=== PATIENT | female | born 1995 | race Caucasian/White ===

== ENCOUNTER → 2017-12-03 17:27 | Outpatient (CLI) | payer BC, SELFPAY ==
[2017-12-03 20:01] LABS: Chlamydia Trachomatis by PCR Negative (Negative); Neisserai gonorrhoeae by PCR Negative (Negative); Probe Check PASS; Sample Adequacy Control PASS; Specimen Processing Control PASS
[2017-12-08 14:54] LABS: HPV Reflexed? NOT INDICATED
== END ==
PROVIDERS: Visit Provider Obstetrics & Gynecology
DX: O09.90 Supervision of high risk pregnancy, unspecified, unspecified trimester (principal)
CPT/HCPCS: 87086; 87088; 87491; 87591; 88175; G0145

== ENCOUNTER → 2018-01-07 10:08 | Outpatient (CLI) | payer BC, SELFPAY ==
[2018-01-07 12:52] LABS: Absolute Lymphocyte Count 1.23 X10^3/ul (0.83-4.51); Absolute Neutrophil Count 2.6 X10^3/uL (2.0-7.7); Basophil# 0.02 X10^3/uL; Basophil% 0.5 % (0-1); Differential Indicated SCAN CRITERIA MET; Eosinophils% 2.4 % (0-5); Hematocrit 36.7 % (37-47); Hemoglobin 11.7 g/dl (12.0-15.0); Lymphocyte # 1.23 X10^3/ul (4.0); Lymphocyte % 29.1 % (19-41); Mean Corp Hgb Conc 31.9 g/gl (32-36); Mean Corpuscular Hgb 23.6 pg (27.0-32.0); Mean Corpuscular Volume 74.1 fL (81-99); Mean Platelet Vol. 10.8 fl (6.2-12.0); Monocyte# 0.28 X10^3/uL; Monocyte% 6.6 % (0-10); Neutrophil # 2.59 X10^3/uL (2.7-7.7); Neutrophil % 61.2 % (47-70); POSITIVE COUNT NO; POSITIVE DIFFERENTIAL NO; POSITIVE MORPHOLOGY YES; Platelet Count 275 K/mm3 (150-450); RBC Distribution Width CV 24.1 % (11.6-14.6); RBC Distribution Width SD 62.3 fl (35.1-43.9); Red Blood Count 4.95 M/mm3 (4.2-5.4); White Blood Count 4.2 K/mm3 (4.4-11.0)
[2018-01-07 13:23] LABS: Anisocytosis 1+; Hypochromasia 1+
[2018-01-08 05:20] LABS: Rapid Plasmin Reagin (RPR) NONREACTIVE (NONREACTIVE)
[2018-01-08 08:41] LABS: HEPATITIS B SURFACE AG Negative (Negative)
[2018-01-08 09:18] LABS: HIV - WCH Non-Reactive (Nonreactive); Rubella IgG 54.4 IU/mL
== END ==
PROVIDERS: Visit Provider Obstetrics & Gynecology
DX: O99.89 Other specified diseases and conditions complicating pregnancy, childbirth and the puerperium (principal); R82.71 Bacteriuria; Z3A.00 Weeks of gestation of pregnancy not specified
CPT/HCPCS: 36415; 85025; 86592; 86703; 86762; 86850; 86900; 87077; 87086; 87088; 87340

== ENCOUNTER → 2018-02-24 12:05 | Outpatient (CLI) | payer BC, MEDICAID, SELFPAY | PROVIDERS: Visit Provider Obstetrics & Gynecology | DX: O09.90 Supervision of high risk pregnancy, unspecified, unspecified trimester (principal); Z3A.00 Weeks of gestation of pregnancy not specified | CPT/HCPCS: 76805 ==

== ENCOUNTER → 2018-03-26 07:58 | Outpatient (CLI) | payer BC, MEDICAID, SELFPAY ==
--- NOTE | 2018-03-26 08:01 | US_ITS ---
STUDY: SECOND AND THIRD TRIMESTER OBSTETRICAL ULTRASOUND - LIMITED REASON FOR EXAM: Female, 22 years old. Follow-up anatomy. LMP: 10/08/2017 PRIOR ULTRASOUND: 02/24/2018. TECHNIQUE: Transabdominal ultrasound evaluation was performed. FINDINGS: There is a single intrauterine fetus. The fetus is in a breech presentation. There is demonstrated cardiac activity with a heart rate of 125 bpm. There is a normal amniotic fluid volume. The largest amniotic fluid pocket measures 3.8 cm.The placenta is anterior in location and is not low lying. There are Grade 0 placental changes. The cervix measures 4.1 cm cm in length. BIOMETRY: BPD: 6.1: 24 weeks, 6 days HC: 23.6: 25 weeks, 5 days AC: 20.6: 25 weeks, 2 days FL: 4.4: 24 weeks, 2 days Age by LMP: 24 weeks, 1 days. BISMARK by LMP: 07/15/2018. age by prior US: 25 weeks, 0 days. BISMARK by prior US: 07/09/2018. age by current US: 25 weeks, 1 days. BISMARK by current US: 07/08/2018. Estimated weight: 745 grams, +/- 109 grams, 75 percentile. Follow-up evaluation of the face and spine appear within normal limits. US/OB Limited (No Biometrics) IMPRESSION: Single live fetus in a breech presentation. Follow-up evaluation of the face and spine are within normal limits. Placenta is grade 0 and is not low-lying. Cervix is closed. age by current US: 25 weeks, 1 days. BISMARK by current US: 07/08/2018. Estimated weight: 745 grams, +/- 109 grams, 75 percentile. Electronically Signed: Kyrie Lyon MD at 17:12 EDT , Service support ,
== END ==
PROVIDERS: Visit Provider Obstetrics & Gynecology
DX: Z36.2 Encounter for other antenatal screening follow-up (principal)
CPT/HCPCS: 76815

== ENCOUNTER → 2018-04-28 10:54 | Outpatient (CLI) | payer BC, MEDICAID, SELFPAY ==
[2018-04-28 12:20] LABS: Absolute Lymphocyte Count 1.15 X10^3/ul (0.83-4.51); Absolute Neutrophil Count 4.6 X10^3/uL (2.0-7.7); Basophil# 0.01 X10^3/uL; Basophil% 0.2 % (0-1); Eosinophil# 0.15 X10^3/uL; Eosinophils% 2.4 % (0-5); Hematocrit 37.8 % (37-47); Hemoglobin 12.8 g/dl (12.0-15.0); Lymphocyte # 1.15 X10^3/ul (4.0); Mean Corp Hgb Conc 33.9 g/gl (32-36); Mean Corpuscular Hgb 30.8 pg (27.0-32.0); Mean Corpuscular Volume 90.9 fL (81-99); Mean Platelet Vol. 11.4 fl (6.2-12.0); Monocyte# 0.44 X10^3/uL; Monocyte% 6.9 % (0-10); Neutrophil # 4.62 X10^3/uL (2.7-7.7); Neutrophil % 72.3 % (47-70); Platelet Count 166 K/mm3 (150-450); RBC Distribution Width CV 14.9 % (11.6-14.6); RBC Distribution Width SD 48.9 fl (35.1-43.9); Red Blood Count 4.16 M/mm3 (4.2-5.4); White Blood Count 6.4 K/mm3 (4.4-11.0)
[2018-04-28 12:23] LABS: POSITIVE COUNT NO; POSITIVE DIFFERENTIAL NO; POSITIVE MORPHOLOGY NO
[2018-04-28 12:24] LABS: Glucose Challenge Gest 1H 50g 102 mg/dL (70-140)
== END ==
PROVIDERS: Referring Provider Obstetrics & Gynecology; Visit Provider Obstetrics & Gynecology
DX: O09.90 Supervision of high risk pregnancy, unspecified, unspecified trimester (principal)
CPT/HCPCS: 36415; 82950; 85025

== ENCOUNTER → 2018-05-10 11:47 | Outpatient (CLI) | payer BC, MEDICAID, SELFPAY ==
[2018-05-10 12:11] LABS: Absolute Lymphocyte Count 1.08 X10^3/ul (0.83-4.51); Basophil# 0.01 X10^3/uL; Basophil% 0.1 % (0-1); Eosinophil# 0.14 X10^3/uL; Eosinophils% 1.4 % (0-5); Hematocrit 38.5 % (37-47); Hemoglobin 12.8 g/dl (12.0-15.0); Lymphocyte # 1.08 X10^3/ul (4.0); Lymphocyte % 10.7 % (19-41); Mean Corp Hgb Conc 33.2 g/gl (32-36); Mean Corpuscular Hgb 30.5 pg (27.0-32.0); Mean Corpuscular Volume 91.7 fL (81-99); Mean Platelet Vol. 10.8 fl (6.2-12.0); Monocyte% 7.9 % (0-10); Neutrophil # 8.04 X10^3/uL (2.7-7.7); Neutrophil % 79.8 % (47-70); Platelet Count 169 K/mm3 (150-450); RBC Distribution Width CV 14.4 % (11.6-14.6); RBC Distribution Width SD 47.9 fl (35.1-43.9); White Blood Count 10.1 K/mm3 (4.4-11.0)
--- NOTE | 2018-05-10 12:12 | CT_ITS ---
STUDY: CT ABDOMEN AND PELVIS WITH CONTRAST REASON FOR EXAM: Female, 22 years old. Right lower quadrant pain. The patient is 31 weeks . RADIATION DOSAGE (If Supplied By Facility): CTDIvol = ( 10.52 ) mGy, DLP = ( 477.95 ) mGycm TECHNIQUE: Transaxial images were obtained from the dome of the diaphragm to the symphysis pubis with oral contrast. 100 ml of Isovue 300 contrast was administered. Sagittal and coronal images were reconstructed. Individualized dose optimization techniques were used for this CT. COMPARISON: None. FINDINGS: The visualized lung bases are unremarkable. The visualized portions of the heart are within normal limits. Normal liver. Normal gallbladder and extrahepatic biliary system. Normal spleen. Normal pancreas. Normal bilateral adrenal glands. Mild degree of right hydronephrosis and hydroureter ureter. This is a normal finding and a . Normal left kidney. Normal visualized stomach. Normal small intestine. Normal colon. There is a tubular, thick-walled appendix (>7mm), consistent with acute appendicitis. Normal abdominal aorta. Normal inferior vena cava. Normal retroperitoneum. Normal urinary bladder. Normal abdominal wall. Normal osseous structures. CT/Abdomen/Pelvis WITH Contrast IMPRESSION: Findings in keeping with noncomplicated acute appendicitis. Right hydronephrosis and right hydroureter. Electronically Signed: Riccardo Sultana MD at 15:19 EDT Tel [phone], Service support ,
[2018-05-10 12:13] LABS: POSITIVE COUNT NO; POSITIVE DIFFERENTIAL NO; POSITIVE MORPHOLOGY NO
== END ==
PROVIDERS: Referring Provider Obstetrics & Gynecology; Visit Provider Obstetrics & Gynecology
DX: O26.899 Other specified pregnancy related conditions, unspecified trimester (principal); R10.9 Unspecified abdominal pain; Z3A.00 Weeks of gestation of pregnancy not specified
CPT/HCPCS: 36415; 74177; 85025

== ENCOUNTER 2018-05-10 16:39 | Observation (INO) | payer BC, MEDICAID, SELFPAY ==
--- NOTE | 2018-05-10 | APP_PTH ---
PATIENT: DANI VELÁZQUEZ LOC: WP U#:[id number] AGE/SX: 22/F ROOM: WP013 RE05/10/[address]: Dr. Heike Montemayor MD : 1995 BED: 1 DIS: 05/11/2018 SPEC #: [id number] RECD: 05/11/18 11:04 STATUS: VENU REZakiay #: [id number] BENSON: 05/10/18 00:[address]: Heike Montemayor DEPT: SURGICAL PATHOLOGY RECD BY: Nirav Berrios ENTERED: 05/11/18 11:04 SP TYPE: APPENDIX OTHR DR: Dr. Mily Cano MD No Primary Care Phys Tissues: Appendix, NOS Procedures: Surgery Specimen Level III HEADER OPERATION: Appendectomy PRE-OP DIAGNOSIS: Acute appendicitis TISSUE SUBMITTED: Appendix MICROSCOPIC DIAGNOSIS Appendix: Mild acute appendicitis and periappendicitis. JOE:luis 05/12/18 MICROSCOPIC DESCRIPTION Slides are reviewed. GROSS DESCRIPTION Received is one container labeled with the patient's name and designated appendix. The specimen consists of a C-shaped appendix measuring 9 cm in length and up to 0.6 cm in diameter. The serosa is congested. No obvious perforation is identified. The lumen is pinpoint. No fecalith is identified. The entire specimen is submitted in three cassettes as follows: 1 - tip and proximal portion, 2 & 3 - rest of the specimen. / JOE:luis 05/11/18 TC:2 [facility]: [id number]
--- NOTE | 2018-05-10 15:19 | PCM.HP.STD ---
History of Present Illness Date of Admission: 05/10/18 The patient is a 22 year old F 30 weeks gestation [address] to Dr. Cano's office due to abdominal cramps started at midnight last night and when she woke up this morning it was more along the right side. Patient states she did have some vomiting this morning and has been having diarrhea since last night. Dr. Cano did do a CBC, white blood cell count was 10 with a left shift. Patient did have a CT abdomen pelvis which did show acute appendicitis. Patient rates her pain a 7/10. 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 Lives: Spouse/ Significant Other Smoking Status: Never smoker Tobacco Use: Non-smoker Alcohol: None Drugs: None - *Family History Maternal History Items: No pertinent history Review of Systems Constitutional: Reports: Anorexia Cardiovascular: Denies: Chest Pain Respiratory: Denies: Shortness of Breath Gastrointestinal: Reports: Abdominal Pain, Vomiting Psychiatric: Denies: Anxiety Hematologic/ Lymphatic: Denies: Easy Bruising, Easy Bleeding VTE Information - Inpt Only VTE Present on Admission: Yes VTE Mechan Device Prophylaxis: SCD's VTE Pharm Prophylaxis ordered?: No Reason prophylaxis not ordered:: Treatment Not Indicated - Physical Exam General: Alert, Oriented x3, Cooperative, No apparent distress HEENT: Atraumatic Lungs: Normal air movement Cardiovascular: Regular rate Abdomen: Soft, Gravid - 30 weeks, Tender - Right lateral abdomen from anterior iliac crests to the inferior rib area, positive Rovsing sign, no guarding or rebound Extremities: No clubbing, No cyanosis, No edema Skin: No rashes Neurological: Cranial nerves II-XII grossly intact Psych/Mental Status: Normal Affect Assessment/Plan All Active Problems (Last Reviewed 04/28/18 @ 10:29 by Jennifer De Santiago) (Acute) Asymptomatic bacteriuria during in first trimester (Acute) History of delivery, currently (Acute) Supervision of high-risk (Acute) 22-year-old female 30 weeks gestation, acute appendicitis 1. Discussed with the patient as well as her and reviewed the CT which was consistent with acute appendicitis. Discussed I would not be able to do this laparoscopically due to the fetus position. Recommend doing an open appendectomy. Discussed the risk including but not limited to bleeding, infection, injury to another organ colon/small bowel/uterus, risk of demise, labor and anesthesia. Patient did have heart tones at 320 which were 146 and will plan to do NST for 2 hours after the surgery and delivery. Patient and her no further questions at this time. Heike Montemayor M.D. Pager: [phone] [facility] [address] [place] [address] [address] [place] [address] Office: [phone]
--- NOTE | 2018-05-10 15:24 | HP.PCM_ITS ---
History of Present Illness Date of Admission: 05/10/18 The patient is a 22 year old F 30 weeks gestation [address] to [address]. Cano's office due to abdominal cramps started at midnight last night and when she woke up this morning it was more along the right side. Patient states she did have some vomiting this morning and has been having diarrhea since last night. Dr. Cano did do a CBC, white blood cell count was 10 with a left shift. Patient did have a CT abdomen pelvis which did show acute appendicitis. Patient rates her pain a 7/10. 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 Lives: Spouse/ Significant Other Smoking Status: Never smoker Tobacco Use: Non-smoker Alcohol: None Drugs: None - *Family History Maternal History Items: No pertinent history Review of Systems Constitutional: Reports: Anorexia Cardiovascular: Denies: Chest Pain Respiratory: Denies: Shortness of Breath Gastrointestinal: Reports: Abdominal Pain, Vomiting Psychiatric: Denies: Anxiety Hematologic/ Lymphatic: Denies: Easy Bruising, Easy Bleeding VTE Information - Inpt Only VTE Present on Admission: Yes VTE Mechan Device Prophylaxis: SCD's VTE Pharm Prophylaxis ordered?: No Reason prophylaxis not ordered:: Treatment Not Indicated - Physical Exam General: Alert, Oriented x3, Cooperative, No apparent distress HEENT: Atraumatic Lungs: Normal air movement Cardiovascular: Regular rate Abdomen: Soft, Gravid - 30 weeks, Tender - Right lateral abdomen from anterior iliac crests to the inferior rib area, positive Rovsing sign, no guarding or rebound Extremities: No clubbing, No cyanosis, No edema Skin: No rashes Neurological: Cranial nerves II-XII grossly intact Psych/Mental Status: Normal Affect Assessment/Plan All Active Problems (Last Reviewed 04/28/18 @ 10:29 by Jennifer De Santiago) (Acute) Asymptomatic bacteriuria during in first trimester (Acute) History of delivery, currently (Acute) Supervision of high-risk (Acute) 22-year-old female 30 weeks gestation, acute appendicitis 1. Discussed with the patient as well as her and reviewed the CT which was consistent with acute appendicitis. Discussed I would not be able to do this laparoscopically due to the fetus position. Recommend doing an open appendectomy. Discussed the risk including but not limited to bleeding, infection, injury to another organ colon/small bowel/uterus, risk of demise, labor and anesthesia. Patient did have heart tones at 320 which were 146 and will plan to do NST for 2 hours after the surgery and delivery. Patient and her no further questions at this time. Heike Montemayor M.D. Pager: [phone] [facility] [address] [place] [address] [address] [place] [address] Office: [phone]
[2018-05-10 15:28] VITALS: BP 127/78; PULSE 96; RESP 18; TEMP 37.4; O2SAT 99; BMI 27.2
[2018-05-10 15:35] VITALS: BMI 27.2
[2018-05-10 15:39] LABS: Anion Gap 10 (5-15); BUN 4 mg/dL (7-18); BUN/Creat Ratio 6.8 RATIO (10-20); Calcium,Total 8.3 mg/dL (8.5-10.1); Chloride 103 mmol/L (98-107); Creatinine, Serum 0.58 mg/dL (0.55-1.02); EST Glomerular Filtration Rate 136 mL/min (>60); Est Glom Filt Rate - Afr Amer 164 mL/min (>60); Estimated Creatinine Clearance 147.95 ml/min; Glucose 76 mg/dL (74-106); Potassium 3.3 mmol/L (3.5-5.1); Sodium Level 139 mmol/L (136-145)
[2018-05-10] MEDS: Piperacil/Tazobactam 3.375 GM/50 ML ML IV (16:12)
[2018-05-10] MEDS: Bupivacaine Mpf 0.5% 30 ML VIAL (17:20)
--- NOTE | 2018-05-10 17:32 | PCM.OPRPT ---
Report of Operation Date of Procedure: 05/10/18 Pre-Operative Diagnosis: Acute appendicitis Post-Operative Diagnosis: Same Surgery/Procedure Performed:: Open appendectomy military science teacher: Markell Caba Type of Anesthesia:: General/Supplemental Anesthesiologist: Eugene Mike Special Medications: Zosyn 3.375 g IV x1 Specimen's removed: Appendix Estimated Blood Loss (mL): <10 cc Fluids Replaced: 1400cc Description of Procedure: Patient was brought to the operating room placed supine on the operating room table. A timeout was completed verifying correct patient, procedure, site, positioning, special, prior to beginning procedure. Patient was placed supine slightly rolled to the left with a bump under her right side. General anesthesia was induced. McBurney's point was marked midway between the umbilicus and the anterior iliac spine. Incision was made with a 15 blade scalpel. Electrocautery was used to dissect down to the external oblique fascia. It was incised with the direction of its fibers. The internal and transversalis fascia also incised in the direction of its fibers. The peritoneum was grasped with hemostats and opened with Metzenbaum scissors. [place]'s were used to expose the cecum. It was gently grasped with [place] and the tinea was followed to expose the appendix. The appendix was flipped into the incision. The appendix was inflamed, no perforation identified. The mesoappendix was divided with multiple 3-0 silk sutures. The appendix was divided using a 45 mm endoscopic stapler with blue load. Hemostasis was achieved. Fluid was suctioned. Each of the fascial layers and the peritoneum were closed with 2-0 Vicryls running suture. The skin and subcutaneous tissues were closed with 3-0 Vicryl interrupted subdermal sutures and the skin with 4-0 Monocryl interrupted sutures. Steri-Strips and OpSite were placed over the dressing. Patient was extubated. Patient tolerated procedure. Pt was taken to the postanesthesia care unit in stable condition with plans for continuous monitoring for 2 hours postoperatively. - Complications none
--- NOTE | 2018-05-10 17:38 | OP.PCM_ITS ---
Report of Operation Date of Procedure: 05/10/18 Pre-Operative Diagnosis: Acute appendicitis Post-Operative Diagnosis: Same Surgery/Procedure Performed:: Open appendectomy sports information director: Markell Caba Type of Anesthesia:: General/Supplemental Anesthesiologist: Eugene Mike Special Medications: Zosyn 3.375 g IV x1 Specimen's removed: Appendix Estimated Blood Loss (mL): <10 cc Fluids Replaced: 1400cc Description of Procedure: Patient was brought to the operating room placed supine on the operating room table. A timeout was completed verifying correct patient, procedure, site, positioning, special, prior to beginning procedure. Patient was placed supine slightly rolled to the left with a bump under her right side. General anesthesia was induced. McBurney's point was marked midway between the umbilicus and the anterior iliac spine. Incision was made with a 15 blade scalpel. Electrocautery was used to dissect down to the external oblique fascia. It was incised with the direction of its fibers. The internal and transversalis fascia also incised in the dire ction of its fibers. The peritoneum was grasped with hemostats and opened with Metzenbaum scissors. [place]'s were used to expose the cecum. It was gently grasped with Babcocks and the tinea was followed to expose the appendix. The appendix was flipped into the incision. The appendix was inflamed, no perforation identified. The mesoappendix was divided with multiple 3-0 silk sutures. The appendix was divided using a 45 mm endoscopic stapler with blue load. Hemostasis was achieved. Fluid was suctioned. Each of the fascial layers and the peritoneum were closed with 2-0 Vicryls running suture. The skin and subcutaneous tissues were closed with 3-0 Vicryl interrupted subdermal sutures and the skin with 4-0 Monocryl interrupted sutures. Steri-Strips and OpSite were placed over the dressing. Patient was extubated. Patient tolerated procedure. Pt was taken to the postanesthesia care unit in stable condition with plans for continuous monitoring for 2 hours postoperatively. - Complications none
[2018-05-10 17:39] VITALS: BP 117/80; BP 127/78; PULSE 98; RESP 16; TEMP 37.2; O2SAT 100
--- NOTE | 2018-05-10 17:42 | SUR.PHASEI ---
OB NURSES AT BEDSIDE, MONITORING BABY
[2018-05-10 18:02] VITALS: BP 114/82; BP 127/78; PULSE 98; RESP 16; O2SAT 100
[2018-05-10 18:15] VITALS: BP 115/79; BP 127/78; PULSE 102; RESP 16; O2SAT 100
[2018-05-10 18:30] VITALS: BP 118/72; BP 127/78; PULSE 100; RESP 16; TEMP 37.2; O2SAT 99
[2018-05-10] MEDS: Morphine 2 MG/ML Syringe IV ×2 (19:27→21:34)
[2018-05-10] MEDS: Lactated Ringers 1,000 ML 125 ML IV (19:56)
[2018-05-10] MEDS: HYDROcodone Bitartrate/Apap 5/325 Tablet PO (23:31)
[2018-05-10 23:33] VITALS: BMI 27.3
[2018-05-11] MEDS: Lactated Ringers 1,000 ML 125 ML IV (03:25)
[2018-05-11] MEDS: Acetaminophen 500 MG Tablet 1000 MG PO (03:43)
--- NOTE | 2018-05-11 07:24 | US_ITS ---
STUDY: OBSTETRICAL ULTRASOUND - BIOPHYSICAL PROFILE REASON FOR EXAM: Female, 22 years old. well being. The patient had an appendectomy 24 hours prior. LMP: October 08, 2017. PRIOR ULTRASOUND: Comparison is made with prior examination dated March 26, 2018. TECHNIQUE: Transabdominal TECHNICAL QUALITY: Adequate. FINDINGS: There is a single intrauterine fetus. The fetus is in a cephalic presentation. There is demonstrated cardiac activity with a heart rate of 132 bpm. There is a normal amniotic fluid volume. The largest amniotic fluid pocket measures 6.5 cm. The amniotic fluid index (KELVIN) is 15.5 cm. The placenta is anterior in location and is not low lying. There are Grade 0 placental changes. The cervix measures 4.5 cm. Age by LMP: 30 weeks, 5 days. BISMARK by LMP: July 15, 2018. age by prior US: 31 weeks, 5 days. BISMARK by prior US: July 08, 2018. BIOPHYSICAL PROFILE: Breathing Movements (FBM): 0 Gross Body Movements (GBM): 2 Tone (FT): 2 Amniotic Fluid Volume (AFV): 2 TOTAL SCORE: 6 / 8 US/Biophysical Profile IMPRESSION: biophysical profile of 68. Electronically Signed: Riccardo Sultana MD at 10:50 EDT Tel [phone], Service support ,
[2018-05-11] MEDS: HYDROcodone Bitartrate/Apap 5/325 Tablet PO (08:09)
--- NOTE | 2018-05-11 08:18 | PCM.PN.SRG ---
Subjective: Patient is doing well able to tolerate a little bit of solid food denies any nausea or vomiting pain is controlled, has walked to the bathroom, baby is doing well as well - Physical Exam General: Alert, Oriented x3, Cooperative, No apparent distress HEENT: Atraumatic Lungs: Normal air movement Cardiovascular: Regular rate Abdomen: Soft, Gravid, Tender - Near incision, dressed, clean dry and intact Vital Signs Temp Pulse Resp BP Pulse Ox 99.0 F 100 16 118/72 99 05/10/18 18:30 05/10/18 18:30 05/10/18 18:30 05/10/18 18:30 05/10/18 18:30 Oxygen Flow Rate (L/min) 2.5 Oxygen Delivery Method Nasal Cannula Weight: 174 lb 3.2 oz Body Mass Index (BMI) 27.3 Intake and Output for Last 24 Hours 05/09/18 05/10/18 05/11/18 23:59 23:59 23:59 Intake Total 1500 / 1500 4374 / 4374 Output Total 2058 / 2058 Balance 1500 / 1500 2315 / 2315 Laboratory Tests Past 24 Hrs 05/10/18 15:20 Sodium 139 Potassium 3.3 L Chloride 103 Carbon Dioxide 26.0 Anion Gap 10 BUN 4 L Creatinine 0.58 Estim Creat Clear Calc 147.95 Est GFR (MDRD) Af Amer 164 Est GFR (MDRD) Non-Af 136 BUN/Creatinine Ratio 6.8 L Glucose 76 Calcium 8.3 L Medical Necessity - Tobacco Use Smoking Status: Never smoker Tobacco Use: Non-smoker Assessment/Plan All Active Problems (Last Reviewed 04/28/18 @ 10:29 by Jennifer De Santiago) (Acute) Asymptomatic bacteriuria during in first trimester (Acute) History of delivery, currently (Acute) Supervision of high-risk (Acute) 22-year-old female postop day 1 status post open appendectomy, 30 weeks gestation 1. Patient has ordered a regular diet for this morning. She is able to tolerate pains controlled and patient is ambulating vital signs remained stable patient okay to MT from surgery standpoint. Follow-up in 2 weeks. Heike Montemayor M.D. Pager: [phone] [facility] [address] [place] [address], Outpatient [place], [address] [place] [id number] Office: [phone]
--- NOTE | 2018-05-11 08:24 | DCINST_ITS ---
Discharge Diet: Light diet - advance as tolerated Discharge Activity: May not drive while taking narcotic pain medications. May shower in (days): 1 - Await 24 hours from surgery Lifting Restrictions: No lifting greater than 20 pounds x 4 weeks Call your doctor if your incision/area has: Continuous Slow Oozing, Sudden Increased Bleeding, Increased Pain/ Swelling, Increased Redness, Foul Smelling Discharge, Swelling at the incision site Call your doctor if you observe: Fever of 101 or Higher Remove Dressing in (days):: 1 Additional Instructions: Take stool softener with the [place]. Caution with taking Tylenol with [place] as there is artery 325 mg of Tylenol in each [place] make sure the daily amount of Tylenol is less than 4 g. [place] may also cause constipation if no bowel moveme nt 1-2 days recommend taking several doses of MiraLAX. Medications to take at Discharge vitamin,calcium,dqcwkiti-gibg-kqdxh acid tablet 1 tab PO QDAY 12/03/17 hydroxyprogesterone (PF)( preserving) 250 mg/mL (1 mL) IM oil 250 mg IM QWEEK 02/04/18 Hydrocodone Bitart/Apap 5-325 [[place] 5MG-325MG] 1 - 2 tablet PO Q6H PRN PRN 3 Days #15 tablet 05/11/18 Allergies/Adverse Reactions: Allergies No Known Allergies Allergy (Verified 05/10/18 23:33) The following prescriptions were given: Hydrocodone Bitart/Apap 5-325 [[place] 5MG-325MG] 1 - 2 tablet PO Q6H PRN PRN 3 Days #15 tablet PRN Reason: Pain Primary Care Physician: Care Physician,No Primary [Primary Care Provider] - Test Results: Test results from this visit will be discussed in further detail at your follow- up appointment, if applicable. Please Follow Up With: Heike Montemayor MD - After 5:00/weekends call [phone] with any concerns When: call for appt in 2 weeks Proposed Discharge Date: 05/11/18
== END 2018-05-11 11:20 | disposition home or self-care (01) ==
LOC: SDC 16:39 → WP 19:27
PROVIDERS: Admitting Provider Surgery; Referring Provider Obstetrics & Gynecology; Visit Provider Surgery
PROC: (CPT 44950; principal; 2018-05-10 08:40)
DX: O99.613 Diseases of the digestive system complicating pregnancy, third trimester (principal); K35.80 Unspecified acute appendicitis; Z3A.30 30 weeks gestation of pregnancy
CPT/HCPCS: 00840; 44950; 36415; 59025; 59050; 74177; 76818; 80048; 85025; 87086; 87088; 88304; 99218; J7120; G0378; J2405

== ENCOUNTER → 2018-05-12 10:00 | Outpatient (CLI) | payer BC, MEDICAID, SELFPAY ==
--- NOTE | 2018-05-12 10:03 | US_ITS ---
STUDY: OBSTETRICAL ULTRASOUND - BIOPHYSICAL PROFILE REASON FOR EXAM: Female, 22 years old. well-being. LMP: October 08, 2017 PRIOR ULTRASOUND: Comparison is made with prior examination dated May 11, 2018. TECHNIQUE: Transabdominal TECHNICAL QUALITY: Adequate. FINDINGS: There is a single intrauterine fetus. The fetus is in a cephalic presentation. There is demonstrated cardiac activity with a heart rate of 140 bpm. There is a normal amniotic fluid volume. The largest amniotic fluid pocket measures 5.6 times by 3.1 cm. The amniotic fluid index (KELVIN) is 17.7 cm. The placenta is anterior in location and is not low lying. There are Grade 0 placental changes. BIOPHYSICAL PROFILE: Breathing Movements (FBM): 2 Gross Body Movements (GBM): 2 Tone (FT): 2 Amniotic Fluid Volume (AFV): 2 TOTAL SCORE: 8 / 8 US/Biophysical Prof W/O Non Stres IMPRESSION: Normal biophysical profile of 02/17. Electronically Signed: Riccardo Sultana MD at 13:02 EDT Tel [phone], Service support ,
== END ==
PROVIDERS: Referring Provider Obstetrics & Gynecology; Visit Provider Obstetrics & Gynecology
DX: O09.90 Supervision of high risk pregnancy, unspecified, unspecified trimester (principal)
CPT/HCPCS: 76819

== ENCOUNTER → 2018-06-16 12:22 | Outpatient (CLI) | payer MEDICAID, SELFPAY ==
[2018-06-16 11:43] VITALS: BMI 28.2
[2018-06-16 12:57] LABS: ROM Internal Control Test YES-OK TO RESULT pt. (Internal QC); ROM Patient Test Negative (Negative)
[2018-06-16 14:05] LABS: Group B Strep DNA By PCR Negative (Negative); Internal Control PASS; Probe Check PASS; Specimen Processing Control PASS
== END ==
PROVIDERS: Referring Provider Nurse Practitioner Women's Health; Visit Provider Nurse Practitioner Women's Health
DX: O09.219 Supervision of pregnancy with history of pre-term labor, unspecified trimester (principal); O09.93 Supervision of high risk pregnancy, unspecified, third trimester; Z3A.00 Weeks of gestation of pregnancy not specified
CPT/HCPCS: 84112; 87081; 87653

== ENCOUNTER → 2018-06-30 12:13 | Outpatient (CLI) | payer BC, MEDICAID, SELFPAY ==
[2018-06-30 11:52] VITALS: BMI 28.2
[2018-06-30 13:03] LABS: Absolute Neutrophil Count 5.4 X10^3/uL (2.0-7.7); Basophil# 0.02 X10^3/uL; Basophil% 0.3 % (0-1); Eosinophil# 0.11 X10^3/uL; Eosinophils% 1.5 % (0-5); Hematocrit 36.4 % (37-47); Hemoglobin 12.1 g/dl (12.0-15.0); Lymphocyte % 16.4 % (19-41); Mean Corp Hgb Conc 33.2 g/gl (32-36); Mean Corpuscular Hgb 30.6 pg (27.0-32.0); Mean Corpuscular Volume 91.9 fL (81-99); Mean Platelet Vol. 11.8 fl (6.2-12.0); Monocyte# 0.54 X10^3/uL; Monocyte% 7.4 % (0-10); Neutrophil # 5.44 X10^3/uL (2.7-7.7); Neutrophil % 74.3 % (47-70); POSITIVE COUNT NO; POSITIVE DIFFERENTIAL NO; POSITIVE MORPHOLOGY NO; Platelet Count 155 K/mm3 (150-450); RBC Distribution Width CV 13.1 % (11.6-14.6); RBC Distribution Width SD 43.1 fl (35.1-43.9); Red Blood Count 3.96 M/mm3 (4.2-5.4); White Blood Count 7.3 K/mm3 (4.4-11.0)
[2018-06-30 13:10] LABS: Protein, Urine (Random) 6.4 mg/dL (<11.9); Protein:Creat Ratio 133 mg/g CRE (0-200)
[2018-06-30 13:24] LABS: ALB/GLOB Ratio 0.7 RATIO (0.9-2.4); AST(SGOT) 14 U/L (15-37); Alanine Aminotransfer ALT/SGPT 16 U/L (13-56); Albumin, Serum 2.7 g/dL (3.2-5.0); Alkaline Phosphatase 137 U/L (45-117); Anion Gap 9 (5-15); BUN 5 mg/dL (7-18); BUN/Creat Ratio 8.9 RATIO (10-20); Calcium,Total 8.4 mg/dL (8.5-10.1); Chloride 107 mmol/L (98-107); Creatinine, Serum 0.56 mg/dL (0.55-1.02); EST Glomerular Filtration Rate 142 mL/min (>60); Est Glom Filt Rate - Afr Amer 172 mL/min (>60); Globulin 3.7 g/dL (2.2-4.2); Glucose 83 mg/dL (74-106); LDH 169 U/L (84-246); Potassium 3.7 mmol/L (3.5-5.1); Protein, Total 6.4 g/dL (6.4-8.2); Sodium Level 139 mmol/L (136-145); Uric Acid 4.1 mg/dL (2.6-6.0)
--- OUTSIDE RECORDS SUMMARY | 2018-10-01 17:29 | XMS RPT_ITS ---
:1995 Author Organization OHIP Support Name Relationship Address Phone UE Unavailable Unavailable Unavailable VELÁZQUEZ, JERED Unavailable [address] + [place] [address] UE Unavailable Unavailable Unavailable VELÁZQUEZ, JERED Unavailable [address] + [place] [address] UE Unavailable Unavailable Unavailable VELÁZQUEZ, JERED Unavailable [address] + [place] [address] UE Unavailable Unavailable Unavailable VELÁZQUEZ, JERED Unavailable [address] + [place] [address] UE Unavailable Unavailable Unavailable VELÁZQUEZ, JERED Unavailable [address] + [place] [address] UE Unavailable Unavailable Unavailable VELÁZQUEZ, JERED Unavailable [address] + [place] [address] UE Unavailable Unavailable Unavailable VELÁZQUEZ, JERED Unavailable [address] + [place] [address] UE Unavailable Unavailable Unavailable VELÁZQUEZ, JERED Unavailable [address] + [place] [address] UE Unavailable Unavailable Unavailable VELÁZQUEZ, JERED Unavailable [address] + [place] [address] UE Unavailable Unavailable Unavailable VELÁZQUEZ, JERED Unavailable [address] + [place] [address] UE Unavailable Unavailable Unavailable VELÁZQUEZ, JERED Unavailable [address] + [place] [address] UE Unavailable Unavailable Unavailable VELÁZQUEZ, JERED Unavailable [address] + [place] [address] UE Unavailable Unavailable Unavailable VELÁZQUEZ, JERED Unavailable [address] + [place] [address] UE Unavailable Unavailable Unavailable VELÁZQUEZ, JERED Unavailable [address] + [place] [address] UE Unavailable Unavailable Unavailable VELÁZQUEZ, JERED Unavailable [address] + [place] [address] UE Unavailable Unavailable Unavailable VELÁZQUEZ, JERED Unavailable [address] + [place] [address] UE Unavailable Unavailable Unavailable VELÁZQUEZ, JERED Unavailable [address] + [place] [address] UE Unavailable Unavailable Unavailable VELÁZQUEZ, JERED Unavailable [address] + [place] [address] UE Unavailable Unavailable Unavailable VELÁZQUEZ, JERED Unavailable [address] + [place] [address] UE Unavailable Unavailable Unavailable VELÁZQUEZ, JERED Unavailable [address] + [place] [address] UE Unavailable Unavailable Unavailable VELÁZQUEZ, JERED Unavailable [address] + [place] [address] UE Unavailable Unavailable Unavailable VELÁZQUEZ, JERED Unavailable [address] + [place] [address] UE Unavailable Unavailable Unavailable VELÁZQUEZ, JERED Unavailable [address] + [place] [address] UE Unavailable Unavailable Unavailable VELÁZQUEZ, JERED Unavailable [address] + [place] [address] UE Unavailable Unavailable Unavailable VELÁZQUEZ, JERED Unavailable [address] + [place] [address] UE Unavailable Unavailable Unavailable VELÁZQUEZ, JERDE Unavailable [address] + [place] [address] UE Unavailable Unavailable Unavailable VELÁZQUEZ, JERED Unavailable [address] + [place] [address] UE Unavailable Unavailable Unavailable VELÁZQUEZ, JERED Unavailable [address] + [place] [address] UE Unavailable Unavailable Unavailable VELÁZQUEZ, JERED Unavailable [address] + [place] [address] UE Unavailable Unavailable Unavailable VELÁZQUEZ, JERED Unavailable [address] + [place] [address] UE Unavailable Unavailable Unavailable VELÁZQUEZ, JERED Unavailable [address] + [place] [address] UE Unavailable Unavailable Unavailable VELÁZQUEZ, JERED Unavailable [address] + [place] [address] UE Unavailable Unavailable Unavailable UE Unavailable Unavailable Unavailable VELÁZQUEZ, JERED Unavailable [address] + [place] [address] UE Unavailable Unavailable Unavailable VELÁZQUEZ, JERED Unavailable [address] + [place] [address] UE Unavailable Unavailable Unavailable VELÁZQUEZ, JERED Unavailable [address] + [place] [address] UE Unavailable Unavailable Unavailable VELÁZQUEZ, JERED Unavailable [address] + [place] [address] UE Unavailable Unavailable Unavailable VELÁZQUEZ, JERED Unavailable [address] + [place] [address] UE Unavailable Unavailable Unavailable UE Unavailable Unavailable Unavailable VELÁZQUEZ, JERED Unavailable [address] + [place] [address] UE Unavailable Unavailable Unavailable VELÁZQUEZ, JERED Unavailable [address] + [place] [address] UE Unavailable Unavailable Unavailable VELÁZQUEZ, JERED Unavailable [address] + [place] [address] UE Unavailable Unavailable Unavailable VELÁZQUEZ, JERED Unavailable [address] + [place] [address] UE Unavailable Unavailable Unavailable VELÁZQUEZ, JERED Unavailable [address] + [place] [address] UE Unavailable Unavailable Unavailable UE Unavailable Unavailable Unavailable VELÁZQUEZ, JERED Unavailable [address] + [place] [address] UE Unavailable Unavailable Unavailable UE Unavailable Unavailable Unavailable VELÁZQUEZ, JERED Unavailable [address] + [place] [address] LIZ, ADINA Unavailable [address] + [place] [address] LIZ, ADINA Unavailable [address] + [place] [address] VELÁZQUEZ, JERED Unavailable Unavailable + LIZ, ADINA Unavailable [address] + [place] [address] LIZ, ADINA Unavailable [address] + [place] [address] VELÁZQUEZ, JERED Unavailable Unavailable + LIZ, ADINA Unavailable [address] + [place] [address] LIZ, ADINA Unavailable [address] + [place] [address] VELÁZQUEZ, JERED Unavailable Unavailable + LIZ, ADINA Unavailable [address] + [place] [address] LIZ, ADINA Unavailable [address] + [place] [address] VELÁZQUEZ, JERED Unavailable Unavailable + Care Team Providers Name Role Phone Mily Cano Attending Unavailable Primay Care Physicia, No Referring Unavailable Antonette Aponte Attending Unavailable Primay Care Physicia, No Referring Unavailable Mily Cano Attending Unavailable Primay Care Physicia, No Primary Care Unavailable Mily Cano Attending Unavailable Mily Cano Referring Unavailable Primay Care Physicia, No Primary Care Unavailable Mily Cano Attending Unavailable Mily Cano Referring Unavailable Primay Care Physicia, No Primary Care Unavailable Mily Cano Consulting Unavailable Mily Cano Attending Unavailable Primay Care Physicia, No Referring Unavailable Mily Cano Attending Unavailable Marcanthony, Mily Referring Unavailable Primay Care Physicia, No Primary Care Unavailable Marcanthony, Mily Admitting Unavailable Marcanthony, Mily Admitting Unavailable Marcanthony, Imly Attending Unavailable Marcanthony, Mily Referring Unavailable Primay Care Physicia, No Primary Care Unavailable Marcanthony, Mily Consulting Unavailable Marcanthony, Mily Admitting Unavailable Fadi, Antonette Attending Unavailable Marcanthony, Mily Referring Unavailable Primay Care Physicia, No Primary Care Unavailable Marcanthony, Mily Consulting Unavailable Marcanthony, Mily Admitting Unavailable Marcanthony, Mily Attending Unavailable Marcanthony, Mily Referring Unavailable Primay Care Physicia, No Primary Care Unavailable Marcanthony, Mily Consulting Unavailable Marcanthony, Mily Attending Unavailable Marcanthony, Mily Attending Unavailable Marcanthony, Mily Referring Unavailable Waggoner, Antonette Attending Unavailable Marcanthony, Mily Attending Unavailable Marcanthony, Mily Attending Unavailable Marcanthony, Mily Attending Unavailable Waggoner, Antonette Attending Unavailable Marcanthony, Mily Attending Unavailable Marcanthony, Mily Attending Unavailable Marcanthony, Mily Referring Unavailable Primay Care Physicia, No Primary Care Unavailable Marcanthony, Mily Attending Unavailable Marcanthony, Mily Attending Unavailable Primay Care Physicia, No Referring Unavailable Marcanthony, Mily Attending Unavailable Primay Care Physicia, No Referring Unavailable Marcanthony, Mily Attending Unavailable Primay Care Physicia, No Referring Unavailable Marcanthony, Mily Attending Unavailable Primay Care Physicia, No Referring Unavailable Marcanthony, Mily Attending Unavailable Primay Care Physicia, No Referring Unavailable Marcanthony, Mily Attending Unavailable Primay Care Physicia, No Primary Care Unavailable Waggoner, Antonette Attending Unavailable Primay Care Physicia, No Referring Unavailable Waggoner, Antonette Attending Unavailable Primay Care Physicia, No Referring Unavailable Marcanthony, Mily Attending Unavailable Primay Care Physicia, No Referring Unavailable Marcanthony, Mily Attending Unavailable Primay Care Physicia, No Referring Unavailable Marcanthony, Mily Attending Unavailable Primay Care Physicia, No Referring Unavailable Marcanthony, Mily Attending Unavailable Primay Care Physicia, No Referring Unavailable Marcanthony, Mily Attending Unavailable Marcanthony, Mily Referring Unavailable Primay Care Physicia, No Primary Care Unavailable Marcanthony, Mily Attending Unavailable Primay Care Physicia, No Referring Unavailable Marcanthony, Mily Attending Unavailable Primay Care Physicia, No Referring Unavailable Marcanthony, Mily Attending Unavailable Marcanthony, Mily Referring Unavailable Primay Care Physicia, No Primary Care Unavailable Robotham, Heike Attending Unavailable Primay Care Physicia, No Primary Care Unavailable Marcanthony, Mily Referring Unavailable Robotham, Heike Admitting Unavailable Robotham, Heike Attending Unavailable Robotham, Heike Referring Unavailable Primay Care Physicia, No Primary Care Unavailable Robotham, Heike Consulting Unavailable Robotham, Heike Admitting Unavailable Robotham, Heike Attending Unavailable Marcanthony, Mily Referring Unavailable Primay Care Physicia, No Primary Care Unavailable Robotham, Heike Consulting Unavailable Marcanthony, Mily Attending Unavailable Primay Care Physicia, No Referring Unavailable Marcanthony, Mily Attending Unavailable Marcanthony, Mily Referring Unavailable Primay Care Physicia, No Primary Care Unavailable Marcanthony, Mily Attending Unavailable Primay Care Physicia, No Referring Unavailable Robotham, Heike Attending Unavailable Marcanthony, Mily Referring Unavailable Fadi, Antonette Attending Unavailable Primay Care Physicia, No Referring Unavailable Marcanthony, Mily Attending Unavailable Primay Care Physicia, No Referring Unavailable Marcanthony, Mily Attending Unavailable Primay Care Physicia, No Referring Unavailable Fadi, Antonette Attending Unavailable Primay Care Physicia, No Referring Unavailable Fadi, Antonette Attending Unavailable Fadi, Antonette Referring Unavailable Primay Care Physicia, No Primary Care Unavailable RAMSES WALL Attending Unavailable PHYSICIAN, NONE Primary Care Unavailable FRED PERRY DO Attending Unavailable FRED PERRY DO Admitting Unavailable BRIDGETTE STEINBERG, DR. ASPEN Cifuentes Primary Care Unavailable BRIDGETTE STEINBERG, DR. ASPEN Cifuentes Primary Care Unavailable REAGAN GARY Attending Unavailable REAGAN GARY Attending Unavailable BRIDGETTE STEINBERG, DR. ASPEN Cifuentes Primary Care Unavailable Darren Guzmán Attending Unavailable PROBLEMS PROBLEMS DATE TYPE CONDITION / CODE ATTENDING STATUS SOURCE 07/08/2018 Unknown O09.219 - Marcanthony, Active [facility] with Hospital history of pre-term Repository labor, unspecified trimester / O09.219(ICD-10) 07/08/2018 Unknown O99.89 - Other Marcanthony, Active [facility] specified diseases [facility] and conditions Hospital complicating Repository , childbirth and the puerperium / O99.89(ICD-10) 07/08/2018 Unknown R82.71 - Bacteriuria Marcnadia, Active [facility] / R82.71(ICD-10) [facility] Repository 07/08/2018 Unknown O09.93 - Supervision Marcnadia, Active [facility] of high risk [facility], [facility] unspecified, third Repository trimester / O09.93(ICD-10) 07/08/2018 Unknown Z3A.39 - 39 weeks Marcanthony, Active [facility] gestation of [facility] / Hospital Z3A.39(ICD-10) Repository 06/30/2018 Unknown O26.893 - Other Fadi, Active [facility] specified [facility] related conditions, Hospital third trimester / Repository O26.893(ICD-10) 06/30/2018 Unknown R51 - Headache / Fadi, Active [facility] R51(ICD-10) [facility] Repository 06/30/2018 Unknown Z3A.37 - 37 weeks Waggoner, Active [facility] gestation of [facility] / Hospital Z3A.37(ICD-10) Repository 06/23/2018 Unknown Z3A.36 - [facility] Z3A.36(ICD-10) Repository 06/16/2018 Unknown Z87.51 - Personal Waggoner, Active [facility] history of pre-term [facility] labor / Hospital Z87.51(ICD-10) Repository 06/16/2018 Unknown Z3A.35 - 35 weeks Waggoner, Active [facility] gestation of [facility] / Hospital Z3A.35(ICD-10) Repository 06/09/2018 Unknown Z3A.34 - 34 weeks Marcanthony, Active [facility] gestation of [facility] / Hospital Z3A.34(ICD-10) Repository 05/11/2018 Unknown G89.18 - Other acute Robotham, Active [facility] postprocedural pain [facility] / G89.18(ICD-10) Hospital Repository 05/24/2018 Unknown O26.899 - Other Marcanthony, Active [facility] specified [facility] related conditions, Hospital unspecified Repository trimester / O26.899(ICD-10) 05/17/2018 Unknown R10.9 - Unspecified Marcanthony, Active [facility] abdominal pain / [facility] R10.9(ICD-10) Hospital Repository 05/17/2018 Unknown M54.5 - Low back Marcanthony, Active [facility] pain / M54.5(ICD-10) [facility] Repository 05/17/2018 Unknown Z3A.30 - 30 weeks Marcanthony, Active [facility] gestation of [facility] / Hospital Z3A.30(ICD-10) Repository 05/21/2018 Unknown O09.90 - Supervision Marcanthony, Active [facility] of high risk [facility], [facility] unspecified, Repository unspecified trimester / O09.90(ICD-10) 05/18/2018 Unknown Z23 - Encounter for Delgadoanthdiego, Active [facility] immunization / [facility] Z23(ICD-10) Hospital Repository 05/18/2018 Unknown Z3A.29 - 29 weeks Marcanthony, Active [facility] gestation of [facility] / Hospital Z3A.29(ICD-10) Repository 05/18/2018 Unknown O09.92 - Supervision Waggoner, Active [place] of high risk [facility], Hospital unspecified, second Repository trimester / O09.92(ICD-10) 05/18/2018 Unknown Z3A.25 - 25 weeks Waggoner, Active [facility] gestation of [facility] / Hospital Z3A.25(ICD-10) Repository 04/30/2018 Unknown Z36.2 - Encounter Marcanthdiego, Active [facility] for other [facility] screening follow-up Hospital / Z36.2(ICD-10) Repository 05/18/2018 Unknown Z3A.17 - 17 weeks Marcanthony, Active [facility] gestation of [facility] / Hospital Z3A.17(ICD-10) Repository 05/18/2018 Unknown O09.91 - Supervision Waggoner, Active [facility] of high risk [facility], Hospital unspecified, first Repository trimester / O09.91(ICD-10) 05/18/2018 Unknown Z3A.12 - 12 weeks Fadi, Active [facility] gestation of [facility] / Hospital Z3A.12(ICD-10) Repository 11/26/2017 Admitting Unknown / Darren Guzmán Active [facility] Medical diagnosis UNK(Unknown) [facility] Repository 09/06/2017 Admitting Urinary tract REAGAN GARY Active [facility] Diagnosis infection, site not [facility] specified / Repository N39.0(ICD-10) PROCEDURES PROCEDURES No Procedure Records FoundRESULTS RESULTS DISCHARGE INSTRUCTION Observed: 07/08/2018 Status: F Source: [facility] 8:58 PM [facility] REPOSITORY [facility] Medical Records Department [address] [place] [address] Instructions for Home/Discharge Instructions 07/08/182056 MR#: [id number] Acct: [id number] Name: DANI HILL Rep #: [id number] : 1995 From: Mily Cano MD PCP: Care Physician, No Primary Status: ADM IN Discharge Diet: No Restrictions Discharge Activity: Return to Normal Activity, May not drive while taking narcotic pain medications., May Shower May resume sexual activity in: 4-6 weeks Call your doctor if your incision/area has: Continuous Slow Oozing, Sudden Increased Bleeding, Increased Pain/ Swelling, Increased Redness, Foul Smelling Discharge Additional Instructions: If you experience any of the following, contact your healthcare provider. * Bleeding that soaks a pad every hour for 2 hours * Fever 100.4 or higher * Unrelieved incision or abdominal pain * Swelling, redness, discharge or bleeding from your incision or episiotomy site * Your incision begins to separate * Problems urinating (including inability to urinate or burning while urinating). * Visual changes * Severe headache * Flu-like symptoms * Pain or redness in one of both of your breasts * Pain, warmth, tenderness or swelling in your legs, especially the calf area * Frequent nausea and vomiting * Symptoms of depression or anxiety If you experience any of the following, call 911 or go to the nearest Emergency Room. * Chest pain * Problems breathing * Seizure activity * Partial or complete paralysis of a body part, slurred speech, weakness or drooping of the face, or a sudden inability to walk or hold your balance Allergies/Adverse Reactions: Allergies No Known Allergies Allergy (Verified 07/08/18 16:44) Medications to take at Discharge vitamin,calcium,reioabot-twov-bkeaj acid tablet 1 tab PO QDAY 12/03/17 Ibuprofen [Motrin] 600 mg PO Q6H PRN PRN #30 tablet 07/08/18 The following prescriptions were given: Ibuprofen [Motrin] 600 mg PO Q6H PRN PRN #30 tablet PRN Reason: Pain Please Follow Up With: Mily Cano MD - [phone] When: Call to make an appointment with your doctor in 6 weeks. If you had elevated Blood pressure or 4th degree laceration you will need to be seen in 2 weeks. Primary Care Physician: Care Physician,No Primary [Primary Care Provider] - Test Results: Test results from this visit will be discussed in further detail at your follow-up appointment, if applicable. 07/08/182057 <Electronically signed by Mily Cano MD> Date Mily Cano MD CC: No Primary Care Physician Signed OPERATIVE REPORT Observed: 07/08/2018 Status: F Source: [place] 8:54 PM [facility] REPOSITORY [facility] Medical Records Department [address] [place] [id number] Operative Report 07/08/182047 MR#: [id number] Acct: [id number] Name: DANI HILL Rep #: [id number] : 1995 From: Mily Cano MD PCP: Care Physician, No Primary Status: ADM IN Location: [place] [id number] - Problem List (1) Active labor at term Status: Acute (2) Asymptomatic bacteriuria during in first trimester Status: Acute Comment: keflex, neg repeat culture (3) History of delivery, currently Status: Acute Comment: s/p progesterone injections (4) Status: Acute Qualifiers: Weeks of gestation: 39 weeks Qualified Code(s): Z3A.39 - 39 weeks gestation of Comment: : 3 Elective abortions: Hx Para: 1 Spontaneous abortions: Hx # Term Pregnancies: Ectopic pregnancies: Hx # Pregnancies: Multiple births: : # of living children: Past Pregnancies 2012 Melva live - 4lbs 14oz Female [facility] (5) Supervision of high-risk Status: Acute Qualifiers: Trimester: third trimester Qualified Code(s): O09.93 - Supervision of high risk , unspecified, third trimester Comment: PRR TITO 07/15/18 gender surprise for daughter AMI Frye boyfriend Jered Vaginal Delivery Maternal Presentation: Active Labor ial 39 weeks Amniotic Membrane Rupture Type: Artificial Amniotic Fluid Description: Clear Final TITO: 07/15/18 Gestational age: 39 Weeks and 0 Days Date of Procedure: 07/08/18 Pre-Operative Diagnosis: ial Post-Operative Diagnosis: same Surgery/ Procedure Performed: Vacuum Assisted Vaginal Delivery Type of Anesthesia: Epidural Description of Procedure: Patient began pushing and developed a belonged deceleration for 4 minutes down into the 70s after having recurrent periodic variables and therefore the decision was made to perform a vacuum-assisted delivery. Patient had been consented for this procedure prior to application of vacuum. Kiwi vacuum was applied and the +3 station and was difficult to maintain suction to pop offs were encountered and then a right small mediolateral episiotomy was cut and the vacuum was moved to the side and the infant's head delivered on the next contraction with 1 Pull and delivered the head in the SEYMOUR presentation. The head was delivered atraumatically and a tight nuchal cord x2 was identified and slowly reduced over the infant's head. Gentle downward traction was applied to the head by placing fingers underneath the chin and the occiput however the infant's shoulders were noted to be abnormally rotated and therefore internal manipulation with a wood screw maneuver was attempted to reduce the shoulder due to malpresentation of the shoulders. With continued gentle downward traction the left anterior shoulder was delivered without complication followed by the posterior shoulder and the rest the infant delivered was placed maternal abdomen and then resuscitated by the research and development manager. Cord was clamped and cut and gentle traction was applied to the cord and the placenta delivered spontaneously immediately following it was noted to be intact with three- vessel cord. The perineum and vagina were inspected and the medial lateral episiotomy was noted to have no extension it was just a second-degree perineal laceration repaired in the usual fashion with 3-0 Vicryl repeat. EBL was 300 cc. Patient and infant tolerated delivery well. Presentation: SEYM[place] Placental Delivery Description: Spontaneous Placenta Disposition: [facility] Cord Vessel Description: 3 Vessels Cord Entanglement: Around neck x 2, tight Estimated Blood Loss: 300 A gender: Male Episiotomy Description: Right Mediolateral Laceration: Perineal Extension/lac, 2nd degree Medications given after delivery: IV Pitocin Complications: None 07/08/182053 <Electronically signed by Mily Cano MD> Date Mily Cano MD CC: No Primary Care Physician; Mily Cano MD Signed HISTORY AND PHYSICAL Observed: 07/08/2018 Status: F Source: [place] EXAM 8:48 PM [facility] REPOSITORY [facility] Medical Records Department [address] [place] [address] History and Physical 07/08/182044 MR#: [id number] Acct: [id number] Name: DANI HILL Rep #: [id number] : 1995 22 From: Mily Cano MD PCP: Care Physician, No Primary Status: ADM IN Location: [place] [address] History Date of Admission: 05/10/18 Final TITO: 07/15/18 Gestational age: 39 Weeks and 0 Days History of this : This is a 22 year-old, at 39 weeks gestational age presents IAL 5 cm dilated, co regular ctx no vb lof has good fm,. she has had an uncomplicated Surgical History: Surgical History (Last Reviewed 07/08/18 @ 12:19 by Monik Alexis) H/O dilation and curettage Z98.890 History of appendectomy Z90.49 Allergies No Known Allergies Allergy (Verified 07/08/18 16:44) Home Medications: Home Medications vitamin,calcium,ycuumewv-izeu-wmzhv acid tablet 1 tab PO QDAY 12/03/17 Smoking Status: Never smoker Alcohol: None Number of Fetus(es): 1 Heart Tracin moderate variability reactive no decels cat I tracing TOCO Analysis: q 2-3 minutes History Past Pregnancies: Past Pregnancies previous PTD Labs: Mom's Labs AND Results WBC 9.6 RBC 4.19 L Course Did the patient receive Yes care? Labs Blood Type: B Current Obstetrical History Gestational Diabetes No Incompetent Cervix No Infertility No IUGR No Macrosomia No Hypertension/Pre-eclampsia No Placenta Previa/Abruption No PTL/PROM No Uterine anomaly No Oligohydramnios No Polyhydramnios No Multiple gestation No Past Medical History Asthma No Diabetes No Hypertension No Heart disease No Mitral valve prolapse No Neurologic/Seizure disorder/ No Migraines Kidney disease No Liver disease No Varicosities No Clotting disorders/Hx of DVT No Thyroid Dysfunction No Other medical diseases No Psychiatric disorders No Major trauma No Abnormal PAP smear No Sleep apnea No Mammogram in the last 2 years No Social History Marital Status: SINGLE Alleged father JERED Hx Smoking No Smoking Status Never smoker Expected Infant Delivery Method: Vacuum Extraction Review of Systems Constitutional: Denies: Fever, Malaise Eyes: Denies: Blurred vision, Vision Change HEENT: Denies: Head Aches, Visual Changes Cardiovascular: Denies: Chest Pain, Palpitations Respiratory: Denies: Cough, Shortness of Breath, Wheezing Gastrointestinal: Reports: Abdominal Pain. Denies: Diarrhea, Nausea, Vomiting Genitourinary: Denies: Dysuria, Hematuria Musculoskeletal: Denies: Joint Pain, Muscle pain Skin: Denies: Lesions, Rash Neurological: Denies: Blurred vision, Focal weakness, Headaches Psychiatric: Denies: Anxiety, Depression Endocrine: Denies: Heat/ Cold Intolerance Hematologic/ Lymphatic: Denies: Easy Bruising, Easy Bleeding Physical Exam General: Alert, Cooperative, No apparent distress HEENT: Atraumatic, Normocephalic. Negative for: Thyromegaly, Lymphadenopathy Cardiovascular: Regular rate Lungs: Normal air movement Abdomen: Soft, Non Tender, Gravid Neurological: Deep Tendon Reflexes 2+/4 and Symmetrical, Neuro grossly intact. 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 Negative for: Vulvar lesions Estimated gestational size: Appropriate for gestational size Presentation: Cephalic Cervix Dilation (cm): 5 Assessment/Plan All Active Problems (Last Reviewed 07/08/18 @ 12:19 by Monik Alexis) (Acute) Asymptomatic bacteriuria during in first trimester (Acute) History of delivery, currently (Acute) Supervision of high-risk (Acute) This is a 22 year-old, at 39 weeks gestational age IAL Patient presents IAL, plan expectant management for , pitocin PRN, arom clear fluid. Pain management: plans epidural. GBS negative Management of any complications: none I have reviewed the [facility] and made any clinically relevant updates. 07/08/182047 <Electronically signed by Mily Cano MD> Date Mily Cano MD [facility] Signature: Date (if applicable) CC: No Primary Care Physician; Mily Cano MD Signed CBC-COMPLETE BLOOD CNT Collected: 07/08/2018 Status: F Source: [place] NO DIFF 5:05 PM [facility] REPOSITORY TYPE CODE TESTS RESULT OUT OF RANGE REFERENCE UNITS LAB L100.1000 4.4-11.0 K/mm3 Normal WBC 9.6 LAB L100.1200 4.2-5.4 M/mm3 Low RBC 4.19 LAB L100.1300 12.0-15.0 g/dl Normal HGB 12.7 LAB L100.1400 37-47 % Normal HCT 37.5 LAB L100.1500 81-99 fL Normal MCV 89.5 LAB L100.1600 27.0-32.0 pg Normal MCH 30.3 LAB L100.1700 32-36 g/gl Normal MCHC 33.9 LAB L100.1810 11.6-14.6 % Normal RDW CV 12.9 LAB L100.1820 35.1-43.9 fl Normal RDW SD 41.8 LAB L100.1900 150-450 K/mm3 Normal PLT 205 LAB L100.2000 6.2-12.0 fl Normal MPV 11.7 Performed By: #### L100.0500 #### [facility] [address] [place], [place], [id number] TYPE AND SCREEN Collected: 07/08/2018 Status: F Source: [place] 5:05 PM [facility] REPOSITORY Order Comment: Reason for Type AND Screen/Red Cells: ROUTINE TYPE CODE TESTS RESULT OUT OF RANGE REFERENCE UNITS LAB B10.0800 B Normal BLOOD TYPE GEL POSITIVE LAB B100.4000 Normal Antibody NEGATIVE Screen Performed By: #### B101.7450 #### [facility] [address] [place], [address] DIRECTOR OF SEARCH ENGINE MARKETING OFFICE VISIT Observed: 07/08/2018 Status: F Source: [place] REPORT 12:25 PM [facility] REPOSITORY [facility] 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 Accompanied by: Is patient in pain?: No Allergies No Known Allergies Allergy (Verified 07/08/18 12:18) Medications vitamin,calcium,ylczohaw-ixqe-axuyu acid tablet 1 tab PO QDAY 12/03/17 [History Confirmed 07/08/18] Last Menstral Period: 10/01/17 Zika: Zika virus screening: Negative : No PFSH PFSH Surgical History H/O dilation and curettage (Acute) History of appendectomy (Acute) Social History Smoking Status: Never smoker alcohol intake: never substance use type: does not use caffeine: No what type of physical activity do you participate in: none, walking seatbelt use: always do you feel safe at home: Yes additional social history: Jered- [employer] Patient stays at home Pregancy History 3 Elective abortions Hx Para 1 Spontaneous abortions 1 Past Pregnancies Del. DatName [place]/WeeksOutcome Route [facility] LocaProviderFOB e ht en ia tn Unknown 2012 [address] Will a - pre z ai term HPI 39 WEEKS: Details: DANI HILL is a 22 year old who presents for routine OB visit. OB Visit TITO Calculator Estimated Delivery Date 07/15/18 Based on Ultrasound Date 12/03/17 Current WG 39w 0d Number 1 Expected Delivery Route/Plan Specific Issue/Plans flu vaccine: given tdap vaccine: given rhogam: na LARC form signed: labor support person: Jered pain management: epidural cut cord/dad catch: cut cord : no PP control planned: special requests: [] Initial Weight: 158 lb Date Weight BP Urine PrFHR FuHt Pres MoCTX DilationFetal StVisit NoProviderComments E ot v te [place] G Effac lucose ed Visit Notes Visit Date: 07/08/18 no vb lof good fm o regular ctx Mily Cano MD on 07/08/18 Visit Date: 06/30/18 Headache with light sensitivity and nausea. Good FM No VB, LOF. Has tried tylenol and caffeine. DIMITRI VaughnC on 06/30/18 Visit Date: 06/23/18 no vb lof good fm n oregular ctx Mily Cano MD on 06/23/18 Visit Date: 06/16/18 Questions LOF last 2 nights. More CTX yesterday but then stopped. No VB. Good FM ANJANA Vaughn on 06/16/18 Visit Date: 06/09/18 no vb lof good fm no regular ctx Mily Cano MD on 06/09/18 Visit Date: 05/26/18 Doing well. No CTX, LOF, VB ANJANA Vaughn on 05/26/18 Visit Date: 05/10/18 co not feeling well and having some lower cramping.co right sided abdominal pain constant. she has also had diarrhea. Mily Cano MD on 05/10/18 Visit Date: 04/28/18 cbc tdap gct progesterone. flu vaccine. no vb lof good fm no regular ctx. trouble sleeping. Mily Cano MD on 04/28/18 Visit Date: 04/01/18 Doing well. No VB, LOF. Progesterone injections. No CTX ANJANA Vaughn on 04/01/18 Visit Date: 03/04/18 no vb lof good fm no regualr ctdx Mily Cano MD on 03/04/18 Visit Date: 02/04/18 no vb lof cramping, started progesterone injections Mily Cano MD on 02/04/18 Visit Date: 01/07/18 Some nausea but improving. No LOF, VB, cramping DIMITRI VaughnC on 01/07/18 Visit Date: 12/03/17 No visit notes to display ACOG First Trimester First Trimester: Desire for , Alcohol, Tobacco Cessation, Illicit/Recreational Drug/Substance Use, Intimate Partner Violence, Barriers to care, Unstable Housing, Communication Barriers, Environmental/Work Hazards, Anticipated Course of Care, Toxoplasmosis Precations, Use of Any medications, Sexual activity, Exercise, Dental Care, Sauna/Hot tub use, Seat Belt use, Childbirth classes/Hospital facilities, , Travel, Indications for US and Screening for Aneuploidy Diagnostics Diagnostics Labs Hct 36.4 % (37-47) L 06/30/18 Hgb 12.1 g/dl (12.0-15.0) 06/30/18 Group B Strep DNA Negative (Negative) 06/16/18 Details: HIV: Urine Culture: Sequential Screen: NIPT Screen: Results [id number] Office Urine Glucose Negative Last Edit by Monik Alexis on 07/08/18 12:17 Office Urine Protein Negative Last Edit by Monik Alexis on 07/08/18 12:17 Assessment AND Plan Problems 1. History of delivery, currently O09.219 s/p progesterone injections 2. Asymptomatic bacteriuria during in first trimester O99.89; R82.71 keflex, neg repeat culture 3. 39 weeks gestation of Z3A.39 : 3 Elective abortions: Hx Para: 1 Spontaneous abortions: Hx # Term Pregnancies: Ectopic pregnancies: Hx # Pregnancies: Multiple births: : # of living children: Past Pregnancies 2013 Melva live - 4lbs 14oz Female Shazia Cisneros 4. Supervision of high risk in third trimester O09.93 PRR TITO 07/15/18 gender surprise for daughter AMI Frye boyfriend Jered Plan movement and labor precautions reviewed. ACOG trimester education reviewed and updated. see problem list details for updated plan management information and see below for orders placed at this visit. GA appropriate handout given. Orders Orders: Coding Level of Care Code OB Routine Diagnoses History of delivery, currently O09.219 Asymptomatic bacteriuria during in first trimester O99.89; R82.71 39 weeks gestation of Z3A.39 Weeks of gestation: 39 weeks Supervision of high risk in third trimester O09.93 Trimester: third trimester 07/08/18 1225 <Electronically signed by Mily Cano MD> Date Mily Cano MD Cosigner Signature: Date (if applicable) CC: (ROM) RUPTURE OF Collected: 07/03/2018 Status: F Source: [place] [place] 6:35 PM [facility] REPOSITORY TYPE CODE TESTS RESULT OUT OF RANGE REFERENCE UNITS LAB L205.1310 Negative Normal ROM Negative Result Comment: Amniotic fluid not present indicates No Rupture of Membranes at time of specimen collection. Performed By: #### L205.1000 #### [facility] [address] [place], [place], [address] PROTEIN+CREATININE Collected: Status: F Source: [facility],URINE 06/30/2018 12:47 PM [facility] REPOSITORY TYPE CODE TESTS RESULT OUT OF RANGE REFERENCE UNITS LAB L501.1200 NO RANGE EST. mg/dL Normal UR CREAT 48.30 LAB L501.1930 <11.9 mg/dL Normal 6.4 PROTEIN,UR.R AN. LAB L501.1940 0-200 mg/g CRE Normal PROT:CRE 133 RATIO Performed By: #### L501.0900 #### [facility] [address] [place], [address] CBC W/DIFF, AUTOMATED Collected: 06/30/2018 Status: F Source: [place] 12:41 PM [facility] REPOSITORY TYPE CODE TESTS RESULT OUT OF RANGE REFERENCE UNITS LAB L100.1000 4.4-11.0 K/mm3 Normal WBC 7.3 LAB L100.1200 4.2-5.4 M/mm3 Low RBC 3.96 LAB L100.1300 12.0-15.0 g/dl Normal HGB 12.1 LAB L100.1400 37-47 % Low HCT 36.4 LAB L100.1500 81-99 fL Normal MCV 91.9 LAB L100.1600 27.0-32.0 pg Normal MCH 30.6 LAB L100.1700 32-36 g/gl Normal MCHC 33.2 LAB L100.1810 11.6-14.6 % Normal RDW CV 13.1 LAB L100.1820 35.1-43.9 fl Normal RDW SD 43.1 LAB L100.1900 150-450 K/mm3 Normal PLT 155 LAB L100.2000 6.2-12.0 fl Normal MPV 11.8 LAB L100.2100 47-70 % High NEUT% 74.3 LAB L100.2200 19-41 % Low LY% 16.4 LAB L100.2300 0-10 % Normal MONO% 7.4 LAB L100.2400 0-5 % Normal EO% 1.5 LAB L100.2500 0-1 % Normal BASO% 0.3 LAB L100.2550 0.0-0.9 % Normal IM GRAN % 0.100 Result Comment: IG% - Immature Granulocytes (promyelocytes, myelocytes and metamyelocytes) > 1% indicates that a LEFT SHIFT is Present. LAB L100.2620 2.0-7.7 X10 3/uL Normal Absolute Neut 5.4 LAB L100.2720 0.83-4.51 X10 3/ul Normal Absolute Lymph 1.20 Performed By: #### L100.0100 #### [facility] [address] [place], [address] COMPREHENSIVE METABOLIC Collected: 06/30/2018 Status: F Source: [facility] 12:41 PM [facility] REPOSITORY Order Comment: Serial Specimen #1, #2 or #3? 1 TYPE CODE TESTS RESULT OUT OF RANGE REFERENCE UNITS LAB L501.0100 74-106 mg/dL Normal GLU 83 Result Comment: Please note revised GLUCOSE reference range effective 2017. LAB L501.1000 7-18 mg/dL Low BUN 5 LAB L501.1100 0.55-1.02 mg/dL Normal CREAT,SERUM 0.56 Result Comment: The validity of the calculated GFR AND GFRAA in patients over 70 years has not been determined. Clinical correlation is essential. LAB L501.1110 >60 mL/min Normal EST GFR 142 Result Comment: Non- GFR Calc LAB L501.1115 >60 mL/min Normal EST GFR - AA 172 Result Comment: GFR Calc LAB L501.1300 10-20 RATIO Low BUN/CRE 8.9 LAB L501.1500 6.4-8.2 g/dL Normal T PROT 6.4 LAB L501.1800 3.2-5.0 g/dL Low ALB 2.7 LAB L501.1950 2.2-4.2 g/dL Normal GLOB 3.7 LAB L501.2000 0.9-2.4 RATIO Low A/G 0.7 LAB L501.2200 8.5-10.1 mg/dL Low CA 8.4 LAB L501.4100 15-37 U/L Low AST 14 LAB L501.4305 45-117 U/L High ALK P 137 LAB L501.4405 13-56 U/L Normal ALT 16 LAB L501.4600 0.20-1.00 mg/dL Normal T BILI 0.40 LAB L501.5300 136-145 mmol/L Normal NA 139 LAB L501.5600 3.5-5.1 mmol/L Normal K 3.7 LAB L501.5900 98-107 mmol/L Normal CL 107 LAB L501.6100 21.0-32.0 mmol/L Normal CO2 23.0 LAB L501.6200 5-15 Normal GAP 9 Performed By: #### L500.4050, L501.1400, L504.2610 #### [facility] [address] [place], [place], [address] URIC ACID Collected: 06/30/2018 Status: F Source: [place] 12:41 PM [facility] REPOSITORY Order Comment: Serial Specimen #1, #2 or #3? 1 TYPE CODE TESTS RESULT OUT OF RANGE REFERENCE UNITS LAB L501.1400 2.6-6.0 mg/dL Normal URIC 4.1 Result Comment: The drugs N-Acetylcysteine and Metamizole may falsely depress this assay. Performed By: #### L500.4050, L501.1400, L504.2610 #### [facility] [address] [place], [address] LDH Collected: 06/30/2018 Status: F Source: [place] 12:41 PM [facility] REPOSITORY Order Comment: Serial Specimen #1, #2 or #3? 1 TYPE CODE TESTS RESULT OUT OF RANGE REFERENCE UNITS LAB L504.2610 84-246 U/L Normal LDH 169 Performed By: #### L500.4050, L501.1400, L504.2610 #### [facility] [address] [place], [address] DIRECTOR OF SEARCH ENGINE MARKETING OFFICE VISIT Observed: 06/30/2018 Status: F Source: [place] REPORT 12:12 PM [facility] REPOSITORY [facility] 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 vomiting yesterday and light is bothersome. PFSH PFSH Surgical History H/O dilation and curettage (Acute) History of appendectomy (Acute) Social History Smoking Status: Never smoker alcohol intake: never substance use type: does not use caffeine: No what type of physical activity do you participate in: none, walking seatbelt use: always do you feel safe at home: Yes additional social history: Jered- [employer] Patient stays at home Pregancy History 3 Elective abortions Hx Para 1 Spontaneous abortions 1 Past Pregnancies Del. DatName GA/WeeksOutcome Route [facility] WeigInfant GLabor LgAnesthesDel LocaProviderFOB e ht en ia tn Unknown 2012 [address] live birNSVD 4lbs 14oFemale Shazia Owen Will a th - pre z ai term HPI 38 WEEKS: Details: DANI HILL is a 22 year old who presents for routine OB visit. OB Visit TITO Calculator Estimated Delivery Date 07/15/18 Based on Ultrasound Date 12/03/17 Current WG 37w 6d Number 1 Expected Delivery Route/Plan Specific Issue/Plans flu vaccine: given tdap vaccine: given rhogam: na LARC form signed: labor support person: Jered pain management: epidural cut cord/dad catch: cut cord : no PP control planned: special requests: [] Initial Weight: 158 lb Date Weight BP Urine PrFHR FuHt Pres MoCTX DilationFetal StVisit NoProviderComments E ot v te [place] G Effac lucose ed Visit Notes Visit Date: 06/30/18 Headache with light sensitivity and nausea. Good FM No VB, LOF. Has tried tylenol and caffeine. ANJANA Vaughn on 06/30/18 Visit Date: 06/23/18 no vb lof good fm n oregular ctx Mily Cano MD on 06/23/18 Visit Date: 06/16/18 Questions LOF last 2 nights. More CTX yesterday but then stopped. No VB. Good FM ANJANA Vaughn on 06/16/18 Visit Date: 06/09/18 no vb lof good fm no regular ctx Mily Cano MD on 06/09/18 Visit Date: 05/26/18 Doing well. No CTX, LOF, VB ANJANA Vaughn on 05/26/18 Visit Date: 05/10/18 co not feeling well and having some lower cramping.co right sided abdominal pain constant. she has also had diarrhea. Mily Cano MD on 05/10/18 Visit Date: 04/28/18 cbc tdap gct progesterone. flu vaccine. no vb lof good fm no regular ctx. trouble sleeping. Mily Cano MD on 04/28/18 Visit Date: 04/01/18 Doing well. No VB, LOF. Progesterone injections. No CTX ANJANA Vaughn on 04/01/18 Visit Date: 03/04/18 no vb lof good fm no regualr ctdx Mily Cano MD on 03/04/18 Visit Date: 02/04/18 no vb lof cramping, started progesterone injections Mily Cano MD on 02/04/18 Visit Date: 01/07/18 Some nausea but improving. No LOF, VB, cramping ANJANA Vaughn on 01/07/18 Visit Date: 12/03/17 No visit notes to display ACOG First Trimester First Trimester: Desire for , Alcohol, Tobacco Cessation, Illicit/Recreational Drug/Substance Use, Intimate Partner Violence, Barriers to care, Unstable Housing, Communication Barriers, Environmental/Work Hazards, Anticipated Course of Care, Toxoplasmosis Precations, Use of Any medications, Sexual activity, Exercise, Dental Care, Sauna/Hot tub use, Seat Belt use, Childbirth classes/Hospital facilities, , Travel, Indications for US and Screening for Aneuploidy Diagnostics Diagnostics Labs Hct 38.5 % (37-47) 05/10/18 Hgb 12.8 g/dl (12.0-15.0) 05/10/18 Group B Strep DNA Negative (Negative) 06/16/18 Details: HIV: Urine Culture: Sequential Screen: NIPT Screen: ROS Const Reports system reviewed and no additional complaints, except as docu GI Denies nausea, Denies vomiting, Denies abdominal pain Exam Const General: cooperative Nutritional Appearance: well nourished GI Palpation: soft, nontender, other (gravid) Results [id number] Office Urine Glucose Negative Last Edit by Monik Alexis on 06/30/18 11:54 Office Urine Protein Negative Last Edit by Monik Alexis on 06/30/18 11:54 Assessment AND Plan Problems 1. Supervision of high risk in third trimester O09.93 PRR TITO 07/15/18 gender surprise for daughter AMI Frye boyfriend Jered 2. 37 weeks gestation of Z3A.37 : 3 Elective abortions: Hx Para: 1 Spontaneous abortions: Hx # Term Pregnancies: Ectopic pregnancies: Hx # Pregnancies: Multiple births: : # of living children: Past Pregnancies 2012 Melva live - 4lbs 14oz Female [address] Cisneros 3. Asymptomatic bacteriuria during in first trimester O99.89; R82.71 keflex, neg repeat culture 4. History of delivery, currently O09.219 s/p progesterone injections 5. headache in third trimester O26.893; R51 Plan Orders placed: Pre E labs No vision changes, edema. Normal BP. Negative urine protein Consult with Dr. Cano: Reviewed of labor precautions, movement/kick counts ACOG trimester education reviewed and updated See problem list details for updated plan of care Gestational age appropriate handout given RTO: 1 week Orders Orders: Coding Level of Care Code Off vis,est,level 3 Diagnoses Supervision of high risk in third trimester O09.93 Trimester: third trimester 37 weeks gestation of Z3A.37 Weeks of gestation: 37 weeks Asymptomatic bacteriuria during in first trimester O99.89; R82.71 History of delivery, currently O09.219 headache in third trimester O26.893; R51 Trimester: third trimester 06/30/18 1212 <Electronically signed by Antonette YEUNG> Date Antonette YEUNG Cosigner Signature: Date (if applicable) CC: DIRECTOR OF SEARCH ENGINE MARKETING OFFICE VISIT Observed: 06/23/2018 Status: F Source: [place] REPORT 11:58 AM [facility] REPOSITORY [facility] 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 Required: No Accompanied by: Is patient in pain?: No Allergies No Known Allergies Allergy (Verified 06/23/18 11:41) Medications vitamin,calcium,vxrougkb-nxpt-cogys acid tablet 1 tab PO QDAY 12/03/17 [History Confirmed 06/23/18] Last Menstral Period: 10/01/17 Zika: Zika virus screening: Negative : No PFSH PFSH Surgical History H/O dilation and curettage (Acute) History of appendectomy (Acute) Social History Smoking Status: Never smoker alcohol intake: never substance use type: does not use caffeine: No what type of physical activity do you participate in: none, walking seatbelt use: always do you feel safe at home: Yes additional social history: Jered- [employer] Patient stays at home Pregancy History 3 Elective abortions Hx Para 1 Spontaneous abortions 1 Past Pregnancies Del. DatName GA/WeeksOutcome Route [facility] WeigInoli Clark LgAnesthesDel LocaProviderFOB e ht en ia tn Unknown 2012 [address] live birNSVD 4lbs 14oFemale Shazia Owen Will a - pre z ai term HPI 37 WEEKS: Details: DANI HILL is a 22 year old who presents for routine OB visit. OB Visit TITO Calculator Estimated Delivery Date 07/15/18 Based on Ultrasound Date 12/03/17 Current WG 36w 6d Number 1 Expected Delivery Route/Plan Specific Issue/Plans flu vaccine: given tdap vaccine: given rhogam: na LARC form signed: labor support person: Jered pain management: epidural cut cord/dad catch: cut cord : no PP control planned: special requests: [] Initial Weight: 158 lb Date Weight BP Urine PrFHR FuHt Pres MoCTX DilationFetal StVisit NoProviderComments E ot v te [place] G Effac lucose ed Visit Notes Visit Date: 06/23/18 no vb lof good fm n oregular ctx Mily Cano MD on 06/23/18 Visit Date: 06/16/18 Questions LOF last 2 nights. More CTX yesterday but then stopped. No VB. Good FM DIMITRI VaughnC on 06/16/18 Visit Date: 06/09/18 no vb lof good fm no regular ctx Mily Cano MD on 06/09/18 Visit Date: 05/26/18 Doing well. No CTX, LOF, VB DIMITRI VaughnC on 05/26/18 Visit Date: 05/10/18 co not feeling well and having some lower cramping.co right sided abdominal pain constant. she has also had diarrhea. Mily Cano MD on 05/10/18 Visit Date: 04/28/18 cbc tdap gct progesterone. flu vaccine. no vb lof good fm no regular ctx. trouble sleeping. Mily Cano MD on 04/28/18 Visit Date: 04/01/18 Doing well. No VB, LOF. Progesterone injections. No CTX DIMITRI VaughnC on 04/01/18 Visit Date: 03/04/18 no vb lof good fm no regualr ctdx Mily Cano MD on 03/04/18 Visit Date: 02/04/18 no vb lof cramping, started progesterone injections Mily Cano MD on 02/04/18 Visit Date: 01/07/18 Some nausea but improving. No LOF, VB, cramping DIMITRI VaughnC on 01/07/18 Visit Date: 12/03/17 No visit notes to display ACOG First Trimester First Trimester: Desire for , Alcohol, Tobacco Cessation, Illicit/Recreational Drug/Substance Use, Intimate Partner Violence, Barriers to care, Unstable Housing, Communication Barriers, Environmental/Work Hazards, Anticipated Course of Care, Toxoplasmosis Precations, Use of Any medications, Sexual activity, Exercise, Dental Care, Sauna/Hot tub use, Seat Belt use, Childbirth classes/Hospital facilities, , Travel, Indications for US and Screening for Aneuploidy Diagnostics Diagnostics Labs Hct 38.5 % (37-47) 05/10/18 Hgb 12.8 g/dl (12.0-15.0) 05/10/18 Group B Strep DNA Negative (Negative) 06/16/18 Details: HIV: Urine Culture: Sequential Screen: NIPT Screen: Results [id number] Office Urine Glucose Negative Last Edit by Monik Alexis on 06/23/18 11:42 Office Urine Protein Negative Last Edit by Monik Alexis on 06/23/18 11:42 Assessment AND Plan Problems 1. History of delivery, currently O09.219 s/p progesterone injections 2. Asymptomatic bacteriuria during in first trimester O99.89; R82.71 keflex, neg repeat culture 3. 36 weeks gestation of Z3A.36 : 3 Elective abortions: Hx Para: 1 Spontaneous abortions: Hx # Term Pregnancies: Ectopic pregnancies: Hx # Pregnancies: Multiple births: : # of living children: Past Pregnancies 2012 Melva live - 4lbs [address]oz Female [address] Cisneros 4. Supervision of high risk in third trimester O09.93 PRR TITO 07/15/18 gender surprise for daughter PC Melva boyfriend Jered Plan movement and labor precautions reviewed. ACOG trimester education reviewed and updated. see problem list details for updated plan management information and see below for orders placed at this visit. GA appropriate handout given. Orders Orders: Coding Level of Care Code OB Routine Diagnoses History of delivery, currently O09.219 Asymptomatic bacteriuria during in first trimester O99.89; R82.71 36 weeks gestation of Z3A.36 Weeks of gestation: 36 weeks Supervision of high risk in third trimester O09.93 Trimester: third trimester 06/23/18 1158 <Electronically signed by Mily Cano MD> Date Mily Roman Signature: Date (if applicable) CC: (ROM) RUPTURE OF Collected: 06/16/2018 Status: F Source: [facility] 12:29 PM [facility] REPOSITORY TYPE CODE TESTS RESULT OUT OF RANGE REFERENCE UNITS LAB L205.1310 Negative Normal ROM Negative Result Comment: Amniotic fluid not present indicates No Rupture of Membranes at time of specimen collection. Performed By: #### L205.1000 #### [facility] [address] [place], [address] GROUP B STREP DNA Collected: 06/16/2018 Status: F Source: [place] BY PCR 12:29 PM [facility] REPOSITORY Order Comment: Source: Vaginal-Rectal TYPE CODE TESTS RESULT OUT OF RANGE REFERENCE UNITS LAB L8200.0100 Negative Normal GBS TEST Negative RESULT Performed By: #### L8200.0000 #### [facility] [address] [place], [address] DIRECTOR OF SEARCH ENGINE MARKETING OFFICE VISIT Observed: 06/16/2018 Status: F Source: [place] [facility] 12:11 PM [facility] REPOSITORY [facility] [address] [place] [address] OFFICE VISIT Date of Service: 06/16/18 MR#: [id number] Acct: [id number] Name: DANI HILL Rep #: [id number] : 1995 Provider: DEB Aponte Age/Sex: 22/F Location: [facility] Status: Signed with Addenda ADDENDUM by Brooke Tinoco on 06/16/18 at 1211 OFFICE PROCEDURES Office Procedure Documentation entered by Brooke Tinoco 06/16/18 12:11: Office Meds Hyacinth Performing Provider: ANJANA Vaughn Administered by: Brooke Tinoco on 06/16/18 12:10 Dose Route Admin Location Lot Number Expiration Date NDC Toter 250 mg IM right buttocks [id number] 12/10/20 06358-263-35 [employer]AG PHARMACE[employer] 06/16/18 1211 <Electronically signed by Brooke Tinoco > Date Brooke Tinoco cc: * Signed Intake Vital Signs06/16/18 Body Mass Index (BMI) 28.2 06/16/18 Height 5 ft 7 in 06/16/18 Weight: 183 lb 06/16/18 Body Mass Index (BMI) 28.6 06/16/18 Blood Pressure 114/62 Intake Visit Reasons: 36 WEEKS Chief Complaint: est ob Footwear Sales Coordinator Required: No Is patient in pain?: No Allergies No Known Allergies Allergy (Verified 06/16/18 11:42) Medications vitamin,calcium,clqygwdf-nxvu-dywsg acid tablet 1 tab PO QDAY 12/03/17 [History Confirmed 06/16/18] hydroxyprogesterone (PF)( preserving) 250 mg/mL (1 mL) IM oil 250 mg IM QWEEK 02/04/18 [History Confirmed 06/16/18] Last Menstral Period: 10/01/17 Zika: Zika virus screening: Negative : No PFSH PFSH Surgical History H/O dilation and curettage (Acute) History of appendectomy (Acute) Social History Smoking Status: Never smoker alcohol intake: never substance use type: does not use caffeine: No what type of physical activity do you participate in: none, walking seatbelt use: always do you feel safe at home: Yes additional social history: Jered- [employer] Patient stays at home Pregancy History 3 Elective abortions Hx Para 1 Spontaneous abortions 1 Past Pregnancies Del. DatName GA/WeeksOutcome Route [facility] LocaProviderFOB e ht en ia tn Unknown 2012 [place] live birNSVD 4lbs 14oFemale Shazia Owen Will a th - pre z ai term HPI 36 WEEKS: Details: DANI HILL is a 22 year old who presents for routine OB visit. OB Visit TITO Calculator Estimated Delivery Date 07/15/18 Based on Ultrasound Date 12/03/17 Current WG 35w 6d Number 1 Expected Delivery Route/Plan Specific Issue/Plans flu vaccine: given tdap vaccine: given rhogam: na LARC form signed: labor support person: Jered pain management: epidural cut cord/dad catch: cut cord : no PP control planned: special requests: [] Initial Weight: 158 lb Date Weight BP Urine PrFHR FuHt Pres MoCTX DilationFetal StVisit NoProviderComments E ot v te GA G Effac lucose ed Visit Notes Visit Date: 06/16/18 Questions LOF last 2 nights. More CTX yesterday but then stopped. No VB. Good FM Antonette Aponte NP-C on 06/16/18 Visit Date: 06/09/18 no vb lof good fm no regular ctx Mily Cano MD on 06/09/18 Visit Date: 05/26/18 Doing well. No CTX, LOF, VB Antonette Aponte NP-C on 05/26/18 Visit Date: 05/10/18 co not feeling well and having some lower cramping.co right sided abdominal pain constant. she has also had diarrhea. Mily Cano MD on 05/10/18 Visit Date: 04/28/18 cbc tdap gct progesterone. flu vaccine. no vb lof good fm no regular ctx. trouble sleeping. Mily Cano MD on 04/28/18 Visit Date: 04/01/18 Doing well. No VB, LOF. Progesterone injections. No CTX Antonette Aponte NP-C on 04/01/18 Visit Date: 03/04/18 no vb lof good fm no regualr ctdx Mily Cano MD on 03/04/18 Visit Date: 02/04/18 no vb lof cramping, started progesterone injections Mily Cano MD on 02/04/18 Visit Date: 01/07/18 Some nausea but improving. No LOF, VB, cramping Antonette Aponte NP-C on 01/07/18 Visit Date: 12/03/17 No visit notes to display ACOG First Trimester First Trimester: Desire for , Alcohol, Tobacco Cessation, Illicit/Recreational Drug/Substance Use, Intimate Partner Violence, Barriers to care, Unstable Housing, Communication Barriers, Environmental/Work Hazards, Anticipated Course of Care, Toxoplasmosis Precations, Use of Any medications, Sexual activity, Exercise, Dental Care, Sauna/Hot tub use, Seat Belt use, Childbirth classes/Hospital facilities, , Travel, Indications for US and Screening for Aneuploidy Diagnostics Diagnostics Labs Hct 38.5 % (37-47) 05/10/18 Hgb 12.8 g/dl (12.0-15.0) 05/10/18 Glucose 1 Hr 50 gm 102 mg/dL (70-140) 04/28/18 Details: HIV: Urine Culture: Sequential Screen: NIPT Screen: ROS Const Reports system reviewed and no additional complaints, except as docu GI Denies nausea, Denies vomiting, Denies abdominal pain Exam Const General: cooperative Nutritional Appearance: well nourished GI Palpation: soft, nontender, other (gravid) Results [id number] Office Urine Glucose Negative Last Edit by Afshan Magana on 06/16/18 11:46 Office Urine Protein Negative Last Edit by Afshan Magana on 06/16/18 11:46 Assessment AND Plan Problems 1. Supervision of high risk in third trimester O09.93 PRR TITO 07/15/18 gender surprise for daughter AMI Frye boyfriend Jered 2. 35 weeks gestation of Z3A.35 : 3 Elective abortions: Hx Para: 1 Spontaneous abortions: Hx # Term Pregnancies: Ectopic pregnancies: Hx # Pregnancies: Multiple births: : # of living children: Past Pregnancies 2012 Melva live - 4lbs 14oz Female Shazia Cisneros 3. Asymptomatic bacteriuria during in first trimester O99.89; R82.71 keflex, neg repeat culture 4. History of delivery, currently O09.219 weekly progesterone injection Plan Orders placed: Romplus-call only if positive. GBS Last progesterone injection today Reviewed of labor precautions, movement/kick counts ACOG trimester education reviewed and updated See problem list details for updated plan of care Gestational age appropriate handout given RTO: 1 week Orders Orders: Coding Level of Care Code OB Routine Diagnoses Supervision of high risk in third trimester O09.93 Trimester: third trimester 35 weeks gestation of Z3A.35 Weeks of gestation: 35 weeks Asymptomatic bacteriuria during in first trimester O99.89; R82.71 History of delivery, currently O09.219 06/16/18 1206 <Electronically signed by Antonette YEUNG> Date Antonette Aponte NP-C Cosigner Signature: Date (if applicable) CC: Observed: 06/16/2018 Status: F Source: [place] CULTURE, GROUP B 12:00 AM [facility] STREPTOCOCCUS REPOSITORY DANIELLE Culture Group B Beta Streptococcus is not isolated. Performed By: #### M100.1800 #### [facility] [address] [place], [address] OFFICE VISIT REPORT Observed: 06/10/2018 Status: F Source: [place] 9:57 PM [facility] REPOSITORY [facility] [address] [place] [address] [place] [address] OFFICE VISIT Date of Service: 06/02/18 MR#: [id number] Acct: [id number] Patient: DANI HILL Rep #: [id number] : 1995 Provider: Mily Cano MD Age/Sex: 22/F Location: [facility] Status: Signed Intake Vital Signs06/02/18 Body Mass Index (BMI) 28.2 Intake Visit Reasons: INJECTION Chief Complaint: est ob/ Hansen Allergies No Known Allergies Allergy (Verified 06/09/18 09:43) Medications vitamin,calcium,ydarobke-poer-lwidn acid tablet 1 tab PO QDAY 12/03/17 [History Confirmed 06/09/18] hydroxyprogesterone (PF)( preserving) 250 mg/mL (1 mL) IM oil 250 mg IM QWEEK 02/04/18 [History Confirmed 06/09/18] Office Meds Hyacinth Performing Provider: Mily Cano MD Administered by: Monik Alexis on 06/02/18 10:11 Dose Route Admin Location Lot Number Expiration Date NDC Toter 250 mg IM MESA [id number] 12/10/20 45981-157-50 [facility] Assessment AND Plan Orders Orders: Medications Discontinued: Hansen (hydroxyprogest(PF)(preg presv)) Discontinued 250 mg IM ONCE 1 mL 0RF NS Z87.51 Reason: Office Medication has been Documented as given 06/10/18 215 <Electronically signed by Mily Cano MD> Date Mily Cano MD Cosigner Signature: Date (if applicable) CC: DIRECTOR OF SEARCH ENGINE MARKETING OFFICE VISIT Observed: 06/09/2018 Status: F Source: [place] [facility] 10:21 AM [facility] [address] [place] [address] OFFICE VISIT Date of Service: 06/09/18 MR#: [id number] Acct: [id number] Name: DANI HILL Mushtaq Rep #: [id number] : 1995 Provider: Mily Cano MD Age/Sex: 22/F Location: [facility] Status: Signed Intake Vital Signs06/09/18 Body Mass Index (BMI) 28.2 06/09/18 Height 5 ft 7 in 06/09/18 Weight: 183 lb 06/09/18 Body Mass Index (BMI) 28.6 06/09/18 Blood Pressure 102/68 Intake Visit Reasons: 35 WEEKS Chief Complaint: est ob Footwear Sales Coordinator Required: No Is patient in pain?: No Allergies No Known Allergies Allergy (Verified 06/09/18 09:43) Medications vitamin,calcium,mgnhvdkb-pvwf-zfdcx acid tablet 1 tab PO QDAY 12/03/17 [History Confirmed 06/09/18] hydroxyprogesterone (PF)( preserving) 250 mg/mL (1 mL) IM oil 250 mg IM QWEEK 02/04/18 [History Confirmed 06/09/18] Last Menstral Period: 10/01/17 Zika: Zika virus screening: Negative : No PFSH PFSH Surgical History History of appendectomy (Acute) H/O dilation and curettage (Acute) Social History Smoking Status: Never smoker alcohol intake: never substance use type: does not use caffeine: No what type of physical activity do you participate in: none, walking seatbelt use: always do you feel safe at home: Yes additional social history: Jered- [employer] Patient stays at home Pregancy History 3 Elective abortions Hx Para 1 Spontaneous abortions 1 Past Pregnancies Del. DatName GA/WeeksOutcome Route [facility] LgAnesthesDel LocaProviderFOB e ht en ia tn Unknown 2012 [address] live birNSVD 4lbs 14oFemale Shazia Owen Will a th - pre z ai term HPI 35 WEEKS: Details: DANI HILL is a 22 year old who presents for routine OB visit. OB Visit TITO Calculator Estimated Delivery Date 07/15/18 Based on Ultrasound Date 12/03/17 Current WG 34w 6d Number 1 Expected Delivery Route/Plan Specific Issue/Plans flu vaccine: given tdap vaccine: given rhogam: na LARC form signed: labor support person: Jered pain management: epidural cut cord/dad catch: cut cord : no PP control planned: special requests: [] Initial Weight: 158 lb Date Weight BP Urine PrFHR FuHt Pres MoCTX DilationFetal StVisit NoProviderComments E ot v te GA G Effac lucose ed Visit Notes Visit Date: 06/09/18 no vb lof good fm no regular ctx Mily Cano MD on 06/09/18 Visit Date: 05/26/18 Doing well. No CTX, LOF, VB ANJANA Vaughn on 05/26/18 Visit Date: 05/10/18 co not feeling well and having some lower cramping.co right sided abdominal pain constant. she has also had diarrhea. Mily Cano MD on 05/10/18 Visit Date: 04/28/18 cbc tdap gct progesterone. flu vaccine. no vb lof good fm no regular ctx. trouble sleeping. Mily Cano MD on 04/28/18 Visit Date: 04/01/18 Doing well. No VB, LOF. Progesterone injections. No CTX Antonette Aponte NP-C on 04/01/18 Visit Date: 03/04/18 no vb lof good fm no regualr ctdx Mily Cano MD on 03/04/18 Visit Date: 02/04/18 no vb lof cramping, started progesterone injections Mily Cano MD on 02/04/18 Visit Date: 01/07/18 Some nausea but improving. No LOF, VB, cramping Antonette Aponte NP-C on 01/07/18 Visit Date: 12/03/17 No visit notes to display ACOG First Trimester First Trimester: Desire for , Alcohol, Tobacco Cessation, Illicit/Recreational Drug/Substance Use, Intimate Partner Violence, Barriers to care, Unstable Housing, Communication Barriers, Environmental/Work Hazards, Anticipated Course of Care, Toxoplasmosis Precations, Use of Any medications, Sexual activity, Exercise, Dental Care, Sauna/Hot tub use, Seat Belt use, Childbirth classes/Hospital facilities, , Travel, Indications for US and Screening for Aneuploidy Diagnostics Diagnostics Labs Hct 38.5 % (37-47) 05/10/18 Hgb 12.8 g/dl (12.0-15.0) 05/10/18 Glucose 1 Hr 50 gm 102 mg/dL (70-140) 04/28/18 Details: HIV: Urine Culture: Sequential Screen: NIPT Screen: Office Meds Hyacinth Performing Provider: Mily Cano MD Administered by: Monik Alexis on 06/09/18 09:55 Dose Route Admin Location Lot Number Expiration Date NDC Toter 250 mg IM left buttock [id number] 12/10/20 71538-785-39 [facility] LABS Results [id number] Office Urine Glucose Negative Last Edit by Afshan Magana on 06/09/18 09:46 Office Urine Protein Negative Last Edit by Afshan Magana on 06/09/18 09:46 Assessment AND Plan Problems 1. History of delivery, currently O09.219 weekly progesterone injection 2. Asymptomatic bacteriuria during in first trimester O99.89; R82.71 keflex, neg repeat culture 3. 34 weeks gestation of Z3A.34 : 3 Elective abortions: Hx Para: 1 Spontaneous abortions: Hx # Term Pregnancies: Ectopic pregnancies: Hx # Pregnancies: Multiple births: : # of living children: Past Pregnancies 2012 Melva live - 4lbs 14oz Female [facility] Cisneros 4. Supervision of high risk in third trimester O09.93 PRR TITO 07/15/18 gender surprise for daughter AMI Frye boyfrienrobin [place] Plan movement and labor precautions reviewed. ACOG trimester education reviewed and updated. see problem list details for updated plan management information and see below for orders placed at this visit. [place] appropriate handout given. Orders Orders: Medications Discontinued: Hyacinth (hydroxyprogest(PF)(preg presv)) Discontinued 250 mg IM ONCE 1 mL 0RF NS Z87.51 Reason: Office Medication has been Documented as given Coding Level of Care Code OB Routine Diagnoses History of delivery, currently O09.219 Asymptomatic bacteriuria during in first trimester O99.89; R82.71 34 weeks gestation of Z3A.34 Weeks of gestation: 34 weeks Supervision of high risk in third trimester O09. Trimester: third trimester 06/09/18 1021 <Electronically signed by Mily Cano MD> Date Mily Cano MD Cosigner Signature: Date (if applicable) CC: DIRECTOR OF SEARCH ENGINE MARKETING OFFICE VISIT Observed: 05/26/2018 Status: F Source: [place] REPORT 10:41 AM [facility] [address] [place] [address] OFFICE VISIT Date of Service: 05/26/18 MR#: [id number] Acct: [id number] Name: DANI HILL Rep #: [id number] : 1995 Provider: DEB Aponte Age/Sex: 22/F Location: [facility] Status: Signed Intake Vital Signs05/26/18 Height 5 ft 7 in 05/26/18 Weight: 180 lb 2 oz 05/26/18 Body Mass Index (BMI) 28.2 05/26/18 Blood Pressure 124/80 H Intake Visit Reasons: 33 WEEKS Chief Complaint: est ob/ Hansen Footwear Sales Coordinator Required: No Is patient in pain?: No Allergies No Known Allergies Allergy (Verified 05/26/18 10:13) Medications vitamin,calcium,qyizyzqb-txum-vsmqj acid tablet 1 tab PO QDAY 12/03/17 [History Confirmed 05/26/18] hydroxyprogesterone (PF)( preserving) 250 mg/mL (1 mL) IM oil 250 mg IM QWEEK 02/04/18 [History Confirmed 05/26/18] Last Menstral Period: 10/01/17 Zika: Zika virus screening: Negative : No PFSH PFSH Surgical History H/O dilation and curettage (Acute) Social History Smoking Status: Never smoker alcohol intake: never substance use type: does not use caffeine: No what type of physical activity do you participate in: none, walking seatbelt use: always do you feel safe at home: Yes additional social history: Jered- [facility] Patient stays at home Pregancy History 3 Elective abortions Hx Para 1 Spontaneous abortions 1 Past Pregnancies Del. DatName GA/WeeksOutcome Route [facility] LocaProviderFOB e ht en ia tn Unknown 2012 Arik live birNSVD 4lbs 14oFemale Shazia Owen Will a th - pre z ai term HPI 33 WEEKS: Details: DANI HILL is a 22 year old who presents for routine OB visit. OB Visit TITO Calculator Estimated Delivery Date 07/15/18 Based on Ultrasound Date 12/03/17 Current WG 32w 6d Number 1 Expected Delivery Route/Plan Specific Issue/Plans flu vaccine: given tdap vaccine: given rhogam: na LARC form signed: labor support person: Jered pain management: epidural cut cord/dad catch: cut cord : no PP control planned: special requests: [] Initial Weight: 158 lb Date Weight BP Urine PrFHR FuHt Pres MoCTX DilationFetal StVisit NoProviderComments E ot v te GA G Effac lucose ed Visit Notes Visit Date: 05/26/18 Doing well. No CTX, LOF, VB DIMITRI VaughnC on 05/26/18 Visit Date: 05/10/18 co not feeling well and having some lower cramping.co right sided abdominal pain constant. she has also had diarrhea. Mily Cano MD on 05/10/18 Visit Date: 04/28/18 cbc tdap gct progesterone. flu vaccine. no vb lof good fm no regular ctx. trouble sleeping. Mily Cano MD on 04/28/18 Visit Date: 04/01/18 Doing well. No VB, LOF. Progesterone injections. No CTX DIMITRI VaughnC on 04/01/18 Visit Date: 03/04/18 no vb lof good fm no regualr ctdx Mily Cano MD on 03/04/18 Visit Date: 02/04/18 no vb lof cramping, started progesterone injections Mily Cano MD on 02/04/18 Visit Date: 01/07/18 Some nausea but improving. No LOF, VB, cramping ANJANA Vaughn on 01/07/18 Visit Date: 12/03/17 No visit notes to display ACOG First Trimester First Trimester: Desire for , Alcohol, Tobacco Cessation, Illicit/Recreational Drug/Substance Use, Intimate Partner Violence, Barriers to care, Unstable Housing, Communication Barriers, Environmental/Work Hazards, Anticipated Course of Care, Toxoplasmosis Precations, Use of Any medications, Sexual activity, Exercise, Dental Care, Sauna/Hot tub use, Seat Belt use, Childbirth classes/Hospital facilities, , Travel, Indications for US and Screening for Aneuploidy Diagnostics Diagnostics Labs Hct 38.5 % (37-47) 05/10/18 Hgb 12.8 g/dl (12.0-15.0) 05/10/18 Glucose 1 Hr 50 gm 102 mg/dL (70-140) 04/28/18 Details: HIV: Urine Culture: Sequential Screen: NIPT Screen: Office Tahmina Claros Performing Provider: ANJANA Vaughn Administered by: Brooke Tinoco on 05/26/18 10:37 Dose Route Admin Location Lot Number Expiration Date NDC Toter 250 mg IM left gluteus [id number] 12/10/20 [id number] AMAG PHARMACE[employer] Results [id number] Office Urine Glucose Negative Last Edit by Afshan Magana on 05/26/18 10:17 Office Urine Protein Negative Last Edit by Afshan Magana on 05/26/18 10:17 Assessment AND Plan Problems 1. Supervision of high risk in third trimester O09.93 PRR TITO 07/15/18 gender surprise for daughter AMI Frye boyfrienrobin [place] 2. History of delivery, currently O09.219 weekly progesterone injection 3. Asymptomatic bacteriuria during in first trimester O99.89; R82.71 keflex, neg repeat culture 4. 32 weeks gestation of Z3A.32 : 3 Elective abortions: Hx Para: 1 Spontaneous abortions: Hx # Term Pregnancies: Ectopic pregnancies: Hx # Pregnancies: Multiple births: : # of living children: Past Pregnancies 2012 Melva live - 4lbs 14oz Female [address] Cisneros Plan Orders placed: none Weekly progesterone injection Reviewed of labor precautions, movement/kick counts ACOG trimester education reviewed and updated See problem list details for updated plan of care Gestational age appropriate handout given RTO: 2 weeks Orders Orders: Medications Discontinued: Hyacinth (hydroxyprogest(PF)(preg presv)) Discontinued 250 mg IM ONCE 1 mL 0RF NS Z87.51 Reason: Office Medication has been Documented as given Coding Level of Care Code OB Routine Diagnoses Supervision of high risk in third trimester O09.93 Trimester: third trimester History of delivery, currently O09.219 Asymptomatic bacteriuria during in first trimester O99.89; R82.71 32 weeks gestation of Z3A.32 Weeks of gestation: 32 weeks 05/26/18 1041 <Electronically signed by Antonette YEUNG> Date Antonette Aponte COST ACCOUNTANT-C Cosigner Signature: Date (if applicable) CC: OFFICE VISIT REPORT Observed: 05/25/2018 Status: F Source: [place] 2:00 AM [place] [address] [address] OFFICE VISIT Date of Service: 05/19/18 MR#: [id number] Acct: [id number] Patient: DANI HILL Rep #: [id number] : 1995 Provider: Mily Cano MD Age/Sex: 22/F Location: [facility] Status: Signed Intake Intake Visit Reasons: INJECTION Chief Complaint: est ob Allergies No Known Allergies Allergy (Verified 05/24/18 09:39) Medications vitamin,calcium,nnzmvdjp-evvs-vndrv acid tablet 1 tab PO QDAY 12/03/17 [History Confirmed 05/24/18] hydroxyprogesterone (PF)( preserving) 250 mg/mL (1 mL) IM oil 250 mg IM QWEEK 02/04/18 [History Confirmed 05/24/18] Office Meds Hyacinth Performing Provider: Mily Cano MD Administered by: Monik Alexis on 05/19/18 16:22 Dose Route Admin Location Lot Number Expiration Date [facility] Toter 250 mg IM [facility] [id number] 01/10/20 21861-159-69 [facility]S Assessment AND Plan Orders Orders: Medications Discontinued: Hyacinth (hydroxyprogest(PF)(preg presv)) Discontinued 250 mg IM ONCE 1 mL 0RF NS Z87.51 Reason: Office Medication has been Documented as given 05/25/18 0200 <Electronically signed by Mily Cano MD> Date Mily Cano MD Cosigner Signature: Date (if applicable) CC: SURGERY VISIT REPORT Observed: 05/24/2018 Status: F Source: [place] 12:36 PM [facility] REPOSITORY [facility] [address] [place] [address] [address] [place] [address] OFFICE VISIT Date of Service: 05/24/18 MR#: [id number] Acct: [id number] Name: DANI HILL Rep #: [id number] : 1995 Provider: Heike Montemayor MD Age/Sex: 22/F Location: [facility] Status: Signed Intake Intake Visit Reasons: Appy 05/10 Chief Complaint: est ob Footwear Sales Coordinator Required: No Is patient in pain?: No Allergies No Known Allergies Allergy (Verified 05/24/18 09:39) Medications vitamin,calcium,ljembdqx-gwoa-ctitg acid tablet 1 tab PO QDAY 12/03/17 [History Confirmed 05/24/18] hydroxyprogesterone (PF)( preserving) 250 mg/mL (1 mL) IM oil 250 mg IM QWEEK 02/04/18 [History Confirmed 05/24/18] Subjective Details: Patient presents status post open appendectomy due to patient being 32 weeks gestation at the time of surgery. Pathology results showed mild acute appendicitis and periappendicitis. Patient is doing well denies any pain tolerating regular diet. Objective Details: Right lower quadrant incision at McBurney's point clean dry and intact healing well., Nontender Assessment AND Plan Problems 1. S/P appendectomy, follow-up exam Z09 Plan Patient is doing well status post open appendectomy for acute appendicitis. Patient states her is going well. Follow-up as needed. Patient is agreeable plan. Heike Montemayor M.D. Pager: [phone] [facility] [address] [place] [address], [facility], [address] [place] [address] Office: [phone] Plan Detail Follow Up prn Coding Level of Care Code Global Post Op Diagnoses S/P appendectomy, follow-up exam Z09 05/24/18 1236 <Electronically signed by Heike Montemayor MD> Date Heike Montemayor MD Cosigner Signature: Date (if applicable) CC: Mily Cano MD OFFICE VISIT REPORT Observed: 05/13/2018 Status: F Source: [place] 4:45 PM [place] [address] [place] [address] OFFICE VISIT Date of Service: 05/12/18 MR#: [id number] Acct: [id number] Patient: DANI HILL Rep #: [id number] : 1995 Provider: Mily Cano MD Age/Sex: 22/F Location: [facility] Status: Signed Intake Vital Signs05/12/18 Height 5 ft 7 in 05/12/18 Weight: 180 lb 05/12/18 Body Mass Index (BMI) 28.1 05/12/18 Blood Pressure 116/72 Intake Visit Reasons: Progesterone injection Chief Complaint: est ob Footwear Sales Coordinator Required: No Allergies No Known Allergies Allergy (Verified 05/12/18 09:51) Medications vitamin,calcium,lwcatxgk-ybba-nxitf acid tablet 1 tab PO QDAY 12/03/17 [History Confirmed 05/12/18] hydroxyprogesterone (PF)( preserving) 250 mg/mL (1 mL) IM oil 250 mg IM QWEEK 02/04/18 [History Confirmed 05/12/18] Hydrocodone Bitart/Apap 5-325 [[place] 5MG-325MG] 1 - 2 tab PO Q6H PRN PRN 3 Days #15 tab 05/11/18 [Rx Confirmed 05/12/18] Post menopausal: No Patient : Yes Office Meds Hansen Performing Provider: Mily Cano MD Administered by: Brooke Tinoco on 05/12/18 09:54 Dose Route Admin Location Lot Number Expiration Date NDC Toter 250 mg IM right gluteus [id number] 01/10/20 22156-738-76 [facility] Assessment AND Plan Orders Orders: Medications Discontinued: Hansen (hydroxyprogest(PF)(preg presv)) Discontinued 250 mg IM ONCE 1 mL 0RF NS Z87.51 Reason: Office Medication has been Documented as given 05/13/18 1645 <Electronically signed by Mily Cano MD> Date Mily Cano MD Cosigner Signature: Date (if applicable) CC: BIOPHYSICAL PROF W/O Observed: 05/12/2018 Status: F Source: [place] NON STRES 10:03 [facility] Imaging Services [address] [place] [address] Biophysical Prof W/O Non Stres MR#: [id number] Acct: [id number] Name: DANI HILL Mushtaq Rep #: [id number] : 1995 F 22 From: Riccardo Sultana MD PCP: Care Physician, No Primary Status: REG CLI Study: Biophysical Prof W/O Non Stres Date of Exam: 05/12/18 Exam# [id number] Ordering Dr: Antonette Aponte COST ACCOUNTANT-C STUDY: OBSTETRICAL ULTRASOUND - BIOPHYSICAL PROFILE REASON FOR EXAM: Female, 22 years old. well-being. LMP: October 08, 2017 PRIOR ULTRASOUND: Comparison is made with prior examination dated May 11, 2018. TECHNIQUE: Transabdominal TECHNICAL QUALITY: Adequate. FINDINGS: There is a single intrauterine fetus. The fetus is in a cephalic presentation. There is demonstrated cardiac activity with a heart rate of 140 bpm. There is a normal amniotic fluid volume. The largest amniotic fluid pocket measures 5.6 times by 3.1 cm. The amniotic fluid index (KELVIN) is 17.7 cm. The placenta is anterior in location and is not low lying. There are Grade 0 placental changes. BIOPHYSICAL PROFILE: Breathing Movements (FBM): 2 Gross Body Movements (GBM): 2 Tone (FT): 2 Amniotic Fluid Volume (AFV): 2 TOTAL SCORE: US/Biophysical Prof W/O Non Stres IMPRESSION: Normal biophysical profile of 02/17. Electronically Signed: Riccardo Sultana MD at 13:02 EDT Tel [phone], Service support , CC: DEB Aponte; No Primary Care Physician Director Prison: Signed OPERATIVE REPORT Observed: 05/11/2018 Status: F Source: [place] 5:51 PM [facility] REPOSITORY [facility] Medical Records Department [address] [place] [address] Operative Report 05/10/18 1732 MR#: [id number] Acct: [id number] Name: DANI HILL Rep #: [id number] : 1995 22 From: Heike Montemayor MD PCP: Care Physician, No Primary Status: DIS SEAN Y Location: [place] [address] Report of Operation Date of Procedure: 05/10/18 Pre-Operative Diagnosis: Acute appendicitis Post-Operative Diagnosis: Same Surgery/Procedure Performed:: Open appendectomy glue maker: Markell Caba Type of Anesthesia:: General/Supplemental Anesthesiologist: Eugene Mike Special Medications: Zosyn 3.375 g IV x1 Specimen's removed: Appendix Estimated Blood Loss (mL): <10 cc Fluids Replaced: 1400cc Description of Procedure: Patient was brought to the operating room placed supine on the operating room table. A timeout was completed verifying correct patient, procedure, site, positioning, special, prior to beginning procedure. Patient was placed supine slightly rolled to the left with a bump under her right side. General anesthesia was induced. McBurney's point was marked midway between the umbilicus and the anterior iliac spine. Incision was made with a 15 blade scalpel. Electrocautery was used to dissect down to the external oblique fascia. It was incised with the direction of its fibers. The internal and transversalis fascia also incised in the direction of its fibers. The peritoneum was grasped with hemostats and opened with Metzenbaum scissors. Army- Collingdale's were used to expose the cecum. It was gently grasped with Babcocks and the tinea was followed to expose the appendix. The appendix was flipped into the incision. The appendix was inflamed, no perforation identified. The mesoappendix was divided with multiple 3-0 silk sutures. The appendix was divided using a 45 mm endoscopic stapler with blue load. Hemostasis was achieved. Fluid was suctioned. Each of the fascial layers and the peritoneum were closed with 2-0 Vicryls running suture. The skin and subcutaneous tissues were closed with 3-0 Vicryl interrupted subdermal sutures and the skin with 4-0 Monocryl interrupted sutures. Steri-Strips and OpSite were placed over the dressing. Patient was extubated. Patient tolerated procedure. Pt was taken to the postanesthesia care unit in stable condition with plans for continuous monitoring for 2 hours postoperatively. - Complications none 05/11/18830 <Electronically signed by Heike Montemayor MD> Date Heike Montemayor MD CC: No Primary Care Physician; Markell Caba MD; Mily Cano MD; Heike Montemayor MD Signed DISCHARGE INSTRUCTION Observed: 05/11/2018 Status: F Source: [place] 8:24 AM [facility] REPOSITORY [facility] Medical Records Department [address] [place] [address] Instructions for Home/Discharge Instructions 05/11/18821 MR#: [id number] Acct: [id number] Name: DANI HILL Rep #: [id number] : 1995 22 From: Heike Montemayor MD PCP: Care Physician, No Primary Status: ADM SEAN Discharge Diet: Light diet - advance as tolerated Discharge Activity: May not drive while taking narcotic pain medications. May shower in (days): 1 - Await 24 hours from surgery Lifting Restrictions: No lifting greater than 20 pounds x 4 weeks Call your doctor if your incision/area has: Continuous Slow Oozing, Sudden Increased Bleeding, Increased Pain/ Swelling, Increased Redness, Foul Smelling Discharge, Swelling at the incision site Call your doctor if you observe: Fever of 101 or Higher Remove Dressing in (days):: 1 Additional Instructions: Take stool softener with the [place]. Caution with taking Tylenol with [place] as there is artery 325 mg of Tylenol in each [place]field make sure the daily amount of Tylenol is less than 4 g. [place]field may also cause constipation if no bowel movement 1-2 days recommend taking several doses of MiraLAX. Medications to take at Discharge vitamin,calcium,izgwaeqw-ggfl-unldh acid tablet 1 tab PO QDAY 12/03/17 hydroxyprogesterone (PF)( preserving) 250 mg/mL (1 mL) IM oil 250 mg IM QWEEK 02/04/18 Hydrocodone Bitart/Apap 5-325 [[place] 5MG-325MG] 1 - 2 tablet PO Q6H PRN PRN 3 Days #15 tablet 05/11/18 Allergies/Adverse Reactions: Allergies No Known Allergies Allergy (Verified 05/10/18 23:33) The following prescriptions were given: Hydrocodone Bitart/Apap 5-325 [[place] 5MG-325MG] 1 - 2 tablet PO Q6H PRN PRN 3 Days #15 tablet PRN Reason: Pain Primary Care Physician: Care Physician,No Primary [Primary Care Provider] - Test Results: Test results from this visit will be discussed in further detail at your follow-up appointment, if applicable. Please Follow Up With: Heike Montemayor MD - After 5:00/weekends call [phone] with any concerns When: call for appt in 2 weeks Proposed Discharge Date: 05/11/18 05/11/18823 <Electronically signed by Heike Montemayor MD> Date Heike Montemayor MD CC: No Primary Care Physician BIOPHYSICAL PROFILE Observed: 05/11/2018 Status: F Source: [place] 7:25 AM [facility] REPOSITORY [facility] Imaging Services [address] [place] [address] Biophysical Profile MR#: [id number] Acct: [id number] Name: DANI HILL Rep #: [id number] : 1995 F 22 From: Riccardo Sultana MD PCP: Care Physician, No Primary Status: ADM SEAN Study: Biophysical Profile Date of Exam: 05/11/18 Exam# [id number] Ordering Dr: Mily Cano MD STUDY: OBSTETRICAL ULTRASOUND - BIOPHYSICAL PROFILE REASON FOR EXAM: Female, 22 years old. well being. The patient had an appendectomy 24 hours prior. LMP: October 08, 2017. PRIOR ULTRASOUND: Comparison is made with prior examination dated March 26, 2018. TECHNIQUE: Transabdominal TECHNICAL QUALITY: Adequate. FINDINGS: There is a single intrauterine fetus. The fetus is in a cephalic presentation. There is demonstrated cardiac activity with a heart rate of 132 bpm. There is a normal amniotic fluid volume. The largest amniotic fluid pocket measures 6.5 cm. The amniotic fluid index (KELVIN) is 15.5 cm. The placenta is anterior in location and is not low lying. There are Grade 0 placental changes. The cervix measures 4.5 cm. Age by LMP: 30 weeks, 5 days. TITO by LMP: July 15, 2018. age by prior US: 31 weeks, 5 days. TITO by prior US: July 08, 2018. BIOPHYSICAL PROFILE: Breathing Movements (FBM): 0 Gross Body Movements (GBM): 2 Tone (FT): 2 Amniotic Fluid Volume (AFV): 2 TOTAL SCORE: 6 / 8 US/Biophysical Profile IMPRESSION: biophysical profile of 8. Electronically Signed: Riccardo Sultana MD at 10:50 EDT Tel [phone], Service support , CC: No Primary Care Physician; Mily Cano MD Director Prison: Signed Observed: 05/10/2018 Status: F Source: [place] CULTURE, URINE 5:59 PM [facility] REPOSITORY Urine Culture ORGANISM 1: Mixed Gram Positive Organisms Girard Count 50,000-80,000 MIX CULTURE Mixed contaminants. Submit a new specimen if indicated. Performed By: #### M100.0650 #### [facility] [address] [place], [address] DIRECTOR OF SEARCH ENGINE MARKETING OFFICE VISIT Observed: 05/10/2018 Status: F Source: [place] REPORT 4:38 PM [facility] REPOSITORY [facility] [address] [place] [address] OFFICE VISIT Date of Service: 05/10/18 MR#: [id number] Acct: [id number] Name: DANI HILL Rep #: [id number] : 1995 Provider: Mily Cano MD Age/Sex: 22/F Location: [facility] Status: Signed Intake Vital Signs05/10/18 Height 5 ft 7 in 05/10/18 Weight: 175 lb 05/10/18 Body Mass Index (BMI) 27.3 05/10/18 Blood Pressure 140/90 H Intake Visit Reasons: 30w cramping Allergies No Known Allergies Allergy (Verified 05/05/18 09:32) Medications vitamin,calcium,yryyhjvt-dpil-qhaqk acid tablet 1 tab PO QDAY 12/03/17 [History Confirmed 05/10/18] hydroxyprogesterone (PF)( preserving) 250 mg/mL (1 mL) IM oil 250 mg IM QWEEK 02/04/18 [History Confirmed 05/10/18] Last Menstral Period: 10/01/17 PFSH PFSH Surgical History H/O dilation and curettage (Acute) Social History Smoking Status: Never smoker alcohol intake: never substance use type: does not use caffeine: No what type of physical activity do you participate in: none, walking seatbelt use: always do you feel safe at home: Yes additional social history: Jered- [employer] Patient stays at home Pregancy History 3 Elective abortions Hx Para 1 Spontaneous abortions 1 Past Pregnancies Del. DatName GA/WeeksOutcome Route Bth WeigInfant GLabor LgAnesthesDel LocaProviderFOB e ht en th ia tn Unknown 2012 Arik live birNSVD 4lbs 14oFemale Shazia Owen Will a th - pre z ai term HPI 30w cramping: Details: DANI HILL is a 22 year old who presents for routine OB visit. OB Visit TITO Calculator Estimated Delivery Date 07/15/18 Based on Ultrasound Date 12/03/17 Current WG 30w 4d Number 1 Expected Delivery Route/Plan Specific Issue/Plans flu vaccine: given tdap vaccine: given rhogam: na LARC form signed: labor support person: Jered pain management: epidural cut cord/dad catch: cut cord : no PP control planned: special requests: [] Initial Weight: 158 lb Date Weight BP Urine PrFHR FuHt Pres MoCTX DilationFetal StVisit NoProviderComments E ot v te GA G Effac lucose ed Visit Notes Visit Date: 05/10/18 co not feeling well and having some lower cramping.co right sided abdominal pain constant. she has also had diarrhea. Mily Cano MD on 05/10/18 Visit Date: 04/28/18 cbc tdap gct progesterone. flu vaccine. no vb lof good fm no regular ctx. trouble sleeping. Mily Cano MD on 04/28/18 Visit Date: 04/01/18 Doing well. No VB, LOF. Progesterone injections. No CTX ANJANA Vaughn on 04/01/18 Visit Date: 03/04/18 no vb lof good fm no regualr ctdx Mily Cano MD on 03/04/18 Visit Date: 02/04/18 no vb lof cramping, started progesterone injections Mily Cano MD on 02/04/18 Visit Date: 01/07/18 Some nausea but improving. No LOF, VB, cramping ANJANA Vaughn on 01/07/18 Visit Date: 12/03/17 No visit notes to display ACOG First Trimester First Trimester: Desire for , Alcohol, Tobacco Cessation, Illicit/Recreational Drug/Substance Use, Intimate Partner Violence, Barriers to care, Unstable Housing, Communication Barriers, Environmental/Work Hazards, Anticipated Course of Care, Toxoplasmosis Precations, Use of Any medications, Sexual activity, Exercise, Dental Care, Sauna/Hot tub use, Seat Belt use, Childbirth classes/Hospital facilities, , Travel, Indications for US and Screening for Aneuploidy Diagnostics Diagnostics Labs Hct 38.5 % (37-47) 05/10/18 Hgb 12.8 g/dl (12.0-15.0) 05/10/18 Obstetrics Ultrasound 03/26/18 Glucose 1 Hr 50 gm 102 mg/dL (70-140) 04/28/18 Details: HIV: Urine Culture: Sequential Screen: NIPT Screen: Assessment AND Plan Problems 1. 30 weeks gestation of Z3A.30 : 3 Elective abortions: Hx Para: 1 Spontaneous abortions: Hx # Term Pregnancies: Ectopic pregnancies: Hx # Pregnancies: Multiple births: : # of living children: Past Pregnancies 2012 Melva live - 4lbs 14oz Female Shazia Cisneros 2. Asymptomatic bacteriuria during in first trimester O99.89; R82.71 keflex, neg repeat culture 3. Supervision of high risk in third trimester O09.93 PRR TITO 07/15/18 gender surprise for daughter AIM Frye boyfriend Jered 4. History of delivery, currently O09.219 weekly progesterone injection 5. Abdominal pain affecting O26.899; R10.9 Plan ACOG trimester education reviewed and updated. see problem list details for updated plan management information and see below for orders placed at this visit. GA appropriate handout given. movement and labor precautions reviewed. recommend cbc ct scan and nst Orders Orders: Coding Level of Care Code OB Routine Diagnoses 30 weeks gestation of Z3A.30 Weeks of gestation: 30 weeks Asymptomatic bacteriuria during in first trimester O99.89; R82.71 Supervision of high risk in third trimester O09.93 Trimester: third trimester History of delivery, currently O09.219 Abdominal pain affecting O26.899; R10.9 05/10/18 1638 <Electronically signed by Mily Cano MD> Date Mily Cano MD [facility] Signature: Date (if applicable) CC: HISTORY AND PHYSICAL Observed: 05/10/2018 Status: F Source: [place] EXAM 3:29 PM [facility] REPOSITORY [facility] Medical Records Department [address] [place] [address] History and Physical 05/10/18 1519 MR#: [id number] Acct: [id number] Name: DANI HILL Rep #: [id number] : 1995 22 From: Heike Montemayor MD PCP: Care Physician, No Primary Status: REG [facility] Location: [place] [address] History of Present Illness Date of Admission: 05/10/18 The patient is a 22 year old F 30 [address] to [address] Cano's office due to abdominal cramps started at midnight last night and when she woke up this morning it was more along the right side. Patient states she did have some vomiting this morning and has been having diarrhea since last night. Dr. Cano did do a CBC, white blood cell count was 10 with a left shift. Patient did have a CT abdomen pelvis which did show acute appendicitis. Patient rates her pain a 7/10. 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 Lives: Spouse/ Significant Other Smoking Status: Never smoker Tobacco Use: Non-smoker Alcohol: None Drugs: None - *Family History Maternal History Items: No pertinent history Review of Systems Constitutional: Reports: Anorexia Cardiovascular: Denies: Chest Pain Respiratory: Denies: Shortness of Breath Gastrointestinal: Reports: Abdominal Pain, Vomiting Psychiatric: Denies: Anxiety Hematologic/ Lymphatic: Denies: Easy Bruising, Easy Bleeding VTE Information - Inpt Only VTE Present on Admission: Yes VTE Mechan Device Prophylaxis: SCD's VTE Pharm Prophylaxis ordered?: No Reason prophylaxis not ordered:: Treatment Not Indicated - Physical Exam General: Alert, Oriented x3, Cooperative, No apparent distress HEENT: Atraumatic Lungs: Normal air movement Cardiovascular: Regular rate Abdomen: Soft, Gravid - 30 weeks, Tender - Right lateral abdomen from anterior iliac crests to the inferior rib area, positive Rovsing sign, no guarding or rebound Extremities: No clubbing, No cyanosis, No edema Skin: No rashes Neurological: Cranial nerves II-XII grossly intact Psych/Mental Status: Normal Affect Assessment/Plan All Active Problems (Last Reviewed 04/28/18 @ 10:29 by Jennifer De Santiago) (Acute) Asymptomatic bacteriuria during in first trimester (Acute) History of delivery, currently (Acute) Supervision of high-risk (Acute) 22-year-old female 30 weeks gestation, acute appendicitis 1. Discussed with the patient as well as her and reviewed the CT which was consistent with acute appendicitis. Discussed I would not be able to do this laparoscopically due to the fetus position. Recommend doing an open appendectomy. Discussed the risk including but not limited to bleeding, infection, injury to another organ colon/small bowel/uterus, risk of demise, labor and anesthesia. Patient did have heart tones at 320 which were 146 and will plan to do NST for 2 hours after the surgery and delivery. Patient and her no further questions at this time. Heike Montemayor M.D. Pager: [phone] [facility] [address] [place] [address], [address] [place] [address] Office: [phone] 05/10/18 1529 <Electronically signed by Heike Montemayor MD> Date Heike Montemayor MD Cosigner Signature: Date (if applicable) CC: No Primary Care Physician; Heike Montemayor MD Signed BASIC METABOLIC Collected: 05/10/2018 Status: F Source: [place] PROFILE (BMP) 3:20 PM [facility] REPOSITORY TYPE CODE TESTS RESULT OUT OF RANGE REFERENCE UNITS LAB L501.0100 74-106 mg/dL Normal GLU 76 Result Comment: Please note revised GLUCOSE reference range effective 2017. LAB L501.1000 7-18 mg/dL Low BUN 4 LAB L501.1100 0.55-1.02 mg/dL Normal CREAT,SERUM 0.58 Result Comment: The validity of the calculated GFR AND GFRAA in patients over 70 years has not been determined. Clinical correlation is essential. LAB L501.1110 >60 mL/min Normal EST GFR 136 Result Comment: Non- GFR Calc LAB L501.1115 >60 mL/min Normal EST GFR - AA 164 Result Comment: GFR Calc LAB L501.1255 ml/min Normal Estimated CRCL 147.95 LAB L501.1300 10-20 RATIO Low BUN/CRE 6.8 LAB L501.2200 8.5-10 mg/dL Low .1 CA 8.3 LAB L501.5300 136-14 mmol/L 5 NA Normal 139 LAB L501.5600 3.5-5. mmol/L Low 1 K 3.3 LAB L501.5900 98-107 mmol/L CL Normal 103 LAB L501.6100 21.0-3 mmol/L 2.0 CO2 Normal 26.0 LAB L501.6200 5-15 GAP Normal 10 Performed By: #### L500.2500 #### [facility] [address] [place], [address] ABDOMEN/PELVIS WITH Observed: 05/10/2018 Status: F Source: [place] CONTRAST 12:12 PM [facility] REPOSITORY [facility] Imaging Services [address] [place] [address] Abdomen/Pelvis WITH Contrast MR#: [id number] Acct: [id number] Name: DANI HILL Mushtaq Rep #: [id number] : 1995 F 22 From: Riccardo Sultana MD PCP: Care Physician, No Primary Status: REG CLI Study: Abdomen/Pelvis WITH Contrast Date of Exam: 05/10/18 Exam# [id number] Ordering Dr: Mily Cano MD STUDY: CT ABDOMEN AND PELVIS WITH CONTRAST REASON FOR EXAM: Female, 22 years old. Right lower quadrant pain. The patient is 31 weeks . RADIATION DOSAGE (If Supplied By Facility): CTDIvol = ( 10.52 ) mGy, DLP = ( 477.95 ) mGycm TECHNIQUE: Transaxial images were obtained from the dome of the diaphragm to the symphysis pubis with oral contrast. 100 ml of Isovue 300 contrast was administered. Sagittal and coronal images were reconstructed. Individualized dose optimization techniques were used for this CT. COMPARISON: None. FINDINGS: The visualized lung bases are unremarkable. The visualized portions of the heart are within normal limits. Normal liver. Normal gallbladder and extrahepatic biliary system. Normal spleen. Normal pancreas. Normal bilateral adrenal glands. Mild degree of right hydronephrosis and hydroureter ureter. This is a normal finding and a . Normal left kidney. Normal visualized stomach. Normal small intestine. Normal colon. There is a tubular, thick-walled appendix (>7mm), consistent with acute appendicitis. Normal abdominal aorta. Normal inferior vena cava. Normal retroperitoneum. Normal urinary bladder. Normal abdominal wall. Normal osseous structures. CT/Abdomen/Pelvis WITH Contrast IMPRESSION: Findings in keeping with noncomplicated acute appendicitis. Right hydronephrosis and right hydroureter. Electronically Signed: Riccardo Sultana MD at 15:19 EDT Tel [phone], Service support , CC: No Primary Care Physician; Mily Cano MD Director Prison: Signed CBC W/DIFF, AUTOMATED Collected: 05/10/2018 Status: F Source: [place] 11:55 AM [facility] REPOSITORY TYPE CODE TESTS RESULT OUT OF RANGE REFERENCE UNITS LAB L100.1000 4.4-11.0 K/mm3 Normal WBC 10.1 LAB L100.1200 4.2-5.4 M/mm3 Normal RBC 4.20 LAB L100.1300 12.0-15.0 g/dl Normal HGB 12.8 LAB L100.1400 37-47 % Normal HCT 38.5 LAB L100.1500 81-99 fL Normal MCV 91.7 LAB L100.1600 27.0-32.0 pg Normal MCH 30.5 LAB L100.1700 32-36 g/gl Normal MCHC 33.2 LAB L100.1810 11.6-14.6 % Normal RDW CV 14.4 LAB L100.1820 35.1-43.9 fl High RDW SD 47.9 LAB L100.1900 150-450 K/mm3 Normal PLT 169 LAB L100.2000 6.2-12.0 fl Normal MPV 10.8 LAB L100.2100 47-70 % High NEUT% 79.8 LAB L100.2200 19-41 % Low LY% 10.7 LAB L100.2300 0-10 % Normal MONO% 7.9 LAB L100.2400 0-5 % Normal EO% 1.4 LAB L100.2500 0-1 % Normal BASO% 0.1 LAB L100.2550 0.0-0.9 % Normal IM GRAN % 0.100 Result Comment: IG% - Immature Granulocytes (promyelocytes, myelocytes and metamyelocytes) > 1% indicates that a LEFT SHIFT is Present. LAB L100.2620 2.0-7.7 X10 3/uL High Absolute Neut 8.0 LAB L100.2720 0.83-4.51 X10 3/ul Normal Absolute Lymph 1.08 Performed By: #### L100.0100 #### [facility] [address] [facility] [place], [place], [address] APPENDIX Observed: 05/10/2018 Status: F Source: [place] 12:00 AM [facility] REPOSITORY Patient: DANI HILL : 1995 (22/F) Acct Num: [id number] Phys: Sim DEGROOT,Heike Unit Num: [id number] Loc: WP [id number] Specimen: [id number] Received: 05/11/18 - 1104 Spec Type: APPENDIX TISSUES 1 TISSUES: Appendix, NOS GROSS DESCRIPTION Received is one container labeled with the patient's name and designated appendix. The specimen consists of a C-shaped appendix measuring 9 cm in length and up to 0.6 cm in diameter. The serosa is congested. No obvious perforation is identified. The lumen is pinpoint. No fecalith is identified. The entire specimen is submitted in three cassettes as follows: 1 - tip and proximal portion, 2 AND 3 - rest of the specimen. / JOE:luis 05/11/18 TC:2 CPT: 85291 HEADER OPERATION: Appendectomy PRE-OP DIAGNOSIS: Acute appendicitis TISSUE SUBMITTED: Appendix MICROSCOPIC DESCRIPTION Slides are reviewed. MICROSCOPIC DIAGNOSIS Appendix: Mild acute appendicitis and periappendicitis. JOE:luis 05/12/18 Signed Fran Wagoner 05/12/18 <signature on file> Performed By: #### CARLOS #### [facility] [address] [place], [address] OFFICE VISIT REPORT Observed: 05/09/2018 Status: F Source: [place] 1:35 AM [facility] REPOSITORY [facility] Services [address] [place] [address] 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 Is patient in pain?: No Allergies No Known Allergies Allergy (Verified 05/05/18 09:32) Medications vitamin,calcium,tcujgpxk-fovt-gkyur acid tablet 1 tab PO QDAY 12/03/17 [History Confirmed 05/05/18] hydroxyprogesterone (PF)( preserving) 250 mg/mL (1 mL) IM oil 250 mg IM QWEEK 02/04/18 [History Confirmed 05/05/18] Is last menstrual period known: No Post menopausal: No Patient : Yes Office Procedures Injections Procedure performed by: Jennifer De Santiago Lot number: [id number] Toter: Prasco date: 01/10/20 Dose of injection: 250mg Site of injection: left gluteal IM Medication Given: Yes Additional Details: Patient brought medication to her appointment. 05/09/18 0135 <Electronically signed by Mily Cano MD> Date Mily Cano MD Cosigner Signature: Date (if applicable) CC: CBC W/DIFF, AUTOMATED Collected: 04/28/2018 Status: F Source: [place] 11:20 AM [facility] REPOSITORY TYPE CODE TESTS RESULT OUT OF RANGE REFERENCE UNITS LAB L100.1000 4.4-11.0 K/mm3 Normal WBC 6.4 LAB L100.1200 4.2-5.4 M/mm3 Low RBC 4.16 LAB L100.1300 12.0-15.0 g/dl Normal HGB 12.8 LAB L100.1400 37-47 % Normal HCT 37.8 LAB L100.1500 81-99 fL Normal MCV 90.9 LAB L100.1600 27.0-32.0 pg Normal MCH 30.8 LAB L100.1700 32-36 g/gl Normal MCHC 33.9 LAB L100.1810 11.6-14.6 % High RDW CV 14.9 LAB L100.1820 35.1-43.9 fl High RDW SD 48.9 LAB L100.1900 150-450 K/mm3 Normal PLT 166 LAB L100.2000 6.2-12.0 fl Normal MPV 11.4 LAB L100.2100 47-70 % High NEUT% 72.3 LAB L100.2200 19-41 % Low LY% 18.0 LAB L100.2300 0-10 % Normal MONO% 6.9 LAB L100.2400 0-5 % Normal EO% 2.4 LAB L100.2500 0-1 % Normal BASO% 0.2 LAB L100.2550 0.0-0.9 % Normal IM GRAN % 0.200 Result Comment: IG% - Immature Granulocytes (promyelocytes, myelocytes and metamyelocytes) > 1% indicates that a LEFT SHIFT is Present. LAB L100.2620 2.0-7.7 X10 3/uL Normal Absolute Neut 4.6 LAB L100.2720 0.83-4.51 X10 3/ul Normal Absolute Lymph 1.15 Performed By: #### L100.0100 #### [facility] [address] [place], [address] GLUCOSE CHALLENGE GEST Collected: 04/28/2018 Status: F Source: [place] 1H 50G 11:20 AM [facility] REPOSITORY TYPE CODE TESTS RESULT OUT OF RANGE REFERENCE UNITS LAB L501.0250 70-140 mg/dL Normal GLU GEST 102 50g 1H Performed By: #### L501.0250 #### [facility] [address] [place], [address] DIRECTOR OF SEARCH ENGINE MARKETING OFFICE VISIT Observed: 04/28/2018 Status: F Source: [place] REPORT 10:50 AM [facility] REPOSITORY [facility] [address] [place] [address] OFFICE VISIT Date of Service: 04/28/18 MR#: [id number] Acct: [id number] Name: DANI HILL Rep #: [id number] : 1995 Provider: Mily Cano MD Age/Sex: 22/F Location: [facility] Status: Signed Intake Vital Signs04/28/18 Blood Pressure 112/64 04/28/18 Height 5 ft 7 in 04/28/18 Weight: 174 lb 04/28/18 Body Mass Index (BMI) 27.2 Intake Visit Reasons: 29 WEEKS Footwear Sales Coordinator Required: No Is patient in pain?: No Allergies No Known Allergies Allergy (Verified 04/28/18 10:28) Medications vitamin,calcium,klmoixin-cfbv-ljbxc acid tablet 1 tab PO QDAY 12/03/17 [History Confirmed 04/28/18] hydroxyprogesterone (PF)( preserving) 250 mg/mL (1 mL) IM oil 250 mg IM QWEEK 02/04/18 [History Confirmed 04/28/18] Last Menstral Period: 10/01/17 Zika: Zika virus screening: Negative : No PFSH PFSH Surgical History H/O dilation and curettage (Acute) Social History Smoking Status: Never smoker alcohol intake: never substance use type: does not use caffeine: No what type of physical activity do you participate in: none, walking seatbelt use: always do you feel safe at home: Yes additional social history: Jered- [facility] Patient stays at home Pregancy History 3 Elective abortions Hx Para 1 Spontaneous abortions 1 Past Pregnancies Del. DatName GA/WeeksOutcome Route [facility] LocaProviderFOB e ht en ia tn Unknown 2012 [address] Will a th - pre z ai term HPI 29 WEEKS: Details: DANI HILL is a 22 year old who presents for routine OB visit. OB Visit TITO Calculator Estimated Delivery Date 07/15/18 Based on Ultrasound Date 12/03/17 Current WG 28w 6d Number 1 Expected Delivery Route/Plan Specific Issue/Plans flu vaccine: [] tdap vaccine: [] rhogam: na LARC form signed: [] labor support person: Jered pain management: epidural cut cord/dad catch: cut cord : no PP control planned: [] special requests: [] Initial Weight: 158 lb Date Weight BP Urine PrFHR FuHt Pres MoCTX DilationFetal StVisit NoProviderComments E ot v te GA G Effac lucose ed Visit Notes Visit Date: 04/28/18 cbc tdap gct progesterone. flu vaccine. no vb lof good fm no regular ctx. trouble sleeping. Mily Cano MD on 04/28/18 Visit Date: 04/01/18 Doing well. No VB, LOF. Progesterone injections. No CTX ANJANA Vaughn on 04/01/18 Visit Date: 03/04/18 no vb lof good fm no regualr ctdx Mily Cano MD on 03/04/18 Visit Date: 02/04/18 no vb lof cramping, started progesterone injections Mily Cano MD on 02/04/18 Visit Date: 01/07/18 Some nausea but improving. No LOF, VB, cramping ANJANA Vaughn on 01/07/18 Visit Date: 12/03/17 No visit notes to display ACOG First Trimester First Trimester: Desire for , Alcohol, Tobacco Cessation, Illicit/Recreational Drug/Substance Use, Intimate Partner Violence, Barriers to care, Unstable Housing, Communication Barriers, Environmental/Work Hazards, Anticipated Course of Care, Toxoplasmosis Precations, Use of Any medications, Sexual activity, Exercise, Dental Care, Sauna/Hot tub use, Seat Belt use, Childbirth classes/Hospital facilities, , Travel, Indications for US and Screening for Aneuploidy Diagnostics Diagnostics Labs Obstetrics Ultrasound 03/26/18 Details: HIV: Urine Culture: Sequential Screen: NIPT Screen: Office Procedures Injections Procedure performed by: Jennifer De Santiago Lot number: [id number] Toter: Karo Internet date: 01/10/20 Dose of injection: 1mL 250 mg Site of injection: right gluteal IM Medication Given: Yes Additional Details: Patient brought medication to appointment. Tolerated procedure well. Office Meds Flucelvax Quad [id number] (PF) Performing Provider: Mily Cano MD Administered by: Jennifer De Santiago on 04/28/18 10:30 Dose Route Admin Location Lot Number Expiration Date [facility] Toter 0.5 mL IM right deltoid [id number] 01/09/19 58754-517-92 SEQIRUS Immunizations Boostrix Tdap Performing Provider: Mily Cano MD Administered by: Jennifer De Santiago on 04/28/18 10:30 Dose Route Admin Location Lot Number Expiration Date [facility] Toter 0.5 mL IM Left Deltoid [id number] 06/05/19 65568-487-50 [employer] VIS Given Date VIS Publication Date 04/28/18 09/06/14 Eligibility Eligibility Date Assessment AND Plan Problems 1. History of delivery, currently O09.219 weekly progesterone injection 2. Asymptomatic bacteriuria during in first trimester O99.89; R82.71 keflex, neg repeat culture 3. 29 weeks gestation of Z3A.29 : 3 Elective abortions: Hx Para: 1 Spontaneous abortions: Hx # Term Pregnancies: Ectopic pregnancies: Hx # Pregnancies: Multiple births: : # of living children: Past Pregnancies 2012 Melva live - 4lbs 14oz Female [address] Cisneros 4. Supervision of high risk in third trimester O09.93 PRR TITO 07/15/18 gender surprise for daughter PC Melva boyfriend Jered Plan movement and labor precautions reviewed. ACOG trimester education reviewed and updated. see problem list details for updated plan management information and see below for orders placed at this visit. GA appropriate handout given. Orders Orders: Medications Discontinued: Boostrix Tdap (diphth,pertus(acell),tetanus) Disco0.5 mL IM ONCE #1 0RF NS O09.90, Z23 ntinued Reason: Office Medication has been Documente d as given Coding Level of Care Code OB Routine Diagnoses History of delivery, currently O09.219 Asymptomatic bacteriuria during in first trimester O99.89; R82.71 29 weeks gestation of Z3A.29 Weeks of gestation: 29 weeks Supervision of high risk in third trimester O09.93 Trimester: third trimester 04/28/18 1050 <Electronically signed by Mily Cano MD> Date Mily Cano MD Cosigner Signature: Date (if applicable) CC: OFFICE VISIT REPORT Observed: 04/20/2018 Status: F Source: [place] 2:[address] [place] [address] OFFICE VISIT Date of Service: 04/19/18 MR#: [id number] Acct: [id number] Patient: DANI HILL Rep #: [id number] : 1995 Provider: Mily Cano MD Age/Sex: 22/F Location: [facility] Status: Signed Intake Vital Signs04/19/18 Height 5 ft 7 in 04/19/18 Weight: 171 lb 04/19/18 Body Mass Index (BMI) 26.7 Intake Visit Reasons: injection Chief Complaint: est ob Footwear Sales Coordinator Required: No Is patient in pain?: No Allergies No Known Allergies Allergy (Verified 04/19/18 11:19) Medications vitamin,calcium,ovgddnql-iwad-zohfw acid tablet 1 tab PO QDAY 12/03/17 [History Confirmed 04/19/18] hydroxyprogesterone (PF)( preserving) 250 mg/mL (1 mL) IM oil 250 mg IM QWEEK 02/04/18 [History Confirmed 04/19/18] Is last menstrual period known: No Post menopausal: No Patient : Yes Office Procedures Injections Procedure performed by: Jennifer De Santiago Lot number: [id number] Toter: Prasco date: 01/10/20 Dose of injection: 250mg 1ML Site of injection: left gluteal IM Medication Given: No Additional Details: Hydroxyprogesterone Capr 250mg given. Patient tolerated procedure well. Patient brought injection to visit. 04/20/18 1436 <Electronically signed by Mily Cano MD> Date Mily Cano MD Cosigner Signature: Date (if applicable) CC: OFFICE VISIT REPORT Observed: 04/17/2018 Status: F Source: [place] 11:[address] [place] [address] OFFICE VISIT Date of Service: 04/12/18 MR#: [id number] Acct: [id number] Patient: DANI HILL Rep #: [id number] : 1995 Provider: Mily Cano MD Age/Sex: 22/F Location: [facility] Status: Signed Intake Vital Signs04/12/18 Height 5 ft 7 in 04/12/18 Weight: 171 lb 8 oz 04/12/18 Body Mass Index (BMI) 26.9 04/12/18 Blood Pressure 114/78 Intake Visit Reasons: injection Footwear Sales Coordinator Required: No Is patient in pain?: No Allergies No Known Allergies Allergy (Verified 04/12/18 11:54) Medications vitamin,calcium,znazknhy-chgy-lebex acid tablet 1 tab PO QDAY 12/03/17 [History Confirmed 04/12/18] hydroxyprogesterone (PF)( preserving) 250 mg/mL (1 mL) IM oil 250 mg IM QWEEK 02/04/18 [History Confirmed 04/12/18] Post menopausal: No Patient : Yes Office Meds Hyacinth Performing Provider: Mily Cano MD Administered by: Brooke Tinoco on 04/12/18 11:55 Dose Route Admin Location Lot Number Expiration Date NDC Toter 250 mg IM right gluteus [id number] 01/10/20 95310-783-05 [facility] Assessment AND Plan Orders Orders: Medications Discontinued: Hyacinth (hydroxyprogest(PF)(preg presv)) Discontinued 250 mg IM ONCE 1 mL 0RF NS Z87.51 Reason: Office Medication has been Documented as given 04/17/18 1155 <Electronically signed by Mily Cano MD> Date Mily Cano MD Cosigner Signature: Date (if applicable) CC: OFFICE VISIT REPORT Observed: 04/06/2018 Status: F Source: [place] 1:53 AM [place] [address] [place] [address] OFFICE VISIT Date of Service: 04/05/18 MR#: [id number] Acct: [id number] Patient: DANI HILL Rep #: [id number] : 1995 Provider: Mily Cano MD Age/Sex: 22/F Location: [facility] Status: Signed Intake Vital Signs04/05/18 Height 5 ft 7 in 04/05/18 Weight: 170 lb 04/05/18 Body Mass Index (BMI) 26.6 04/05/18 Blood Pressure 130/70 Intake Visit Reasons: projesterone Footwear Sales Coordinator Required: No Allergies No Known Allergies Allergy (Verified 04/05/18 09:59) Medications vitamin,calcium,dfdrnzoy-srtu-lvjpl acid tablet 1 tab PO QDAY 12/03/17 [History Confirmed 04/05/18] hydroxyprogesterone (PF)( preserving) 250 mg/mL (1 mL) IM oil 250 mg IM QWEEK 02/04/18 [History Confirmed 04/05/18] Post menopausal: No Office Meds Hansen Performing Provider: Mily Cano MD Administered by: Brooke Tinoco on 04/05/18 10:00 Dose Route Admin Location Lot Number Expiration Date NDC Toter 250 mg IM left gluteus [id number] 01/10/20 10143-280-60 [facility] Assessment AND Plan Orders Orders: Medications Discontinued: Hyacinth (hydroxyprogest(PF)(preg presv)) [id number] mg IM ONCE NS Z87.51 Brooke Tinoco tinued Reason: Office Medication has been Docume nted as given 04/06/18 0153 <Electronically signed by Mily Cano MD> Date Mily Cano MD Cosigner Signature: Date (if applicable) CC: DIRECTOR OF SEARCH ENGINE MARKETING OFFICE VISIT Observed: 04/01/2018 Status: F Source: [place] REPORT 11:30 AM [facility] [address] [place] [address] OFFICE VISIT Date of Service: 04/01/18 MR#: [id number] Acct: [id number] Name: DANI HILL Rep #: [id number] : 1995 Provider: DEB Aponte Age/Sex: 22/F Location: [facility] Status: Signed Intake Vital Signs04/01/18 Height 5 ft 7 in 04/01/18 Weight: 167 lb 04/01/18 Body Mass Index (BMI) 26.2 04/01/18 Blood Pressure 116/77 Intake Visit Reasons: 25 WEEK OB Footwear Sales Coordinator Required: No Is patient in pain?: No Allergies No Known Allergies Allergy (Verified 04/01/18 10:54) Medications vitamin,calcium,gahatqgj-okee-domhy acid tablet 1 tab PO QDAY 12/03/17 [History Confirmed 04/01/18] hydroxyprogesterone (PF)( preserving) 250 mg/mL (1 mL) IM oil 250 mg IM QWEEK 02/04/18 [History Confirmed 04/01/18] Last Menstral Period: 10/01/17 Zika: Zika virus screening: Negative : No PFSH PFSH Surgical History H/O dilation and curettage (Acute) Social History Smoking Status: Never smoker alcohol intake: never substance use type: does not use caffeine: No what type of physical activity do you participate in: none, walking seatbelt use: always do you feel safe at home: Yes additional social history: Jered- [employer] Patient stays at home Pregancy History 3 Elective abortions Hx Para 1 Spontaneous abortions 1 Past Pregnancies Del. DatName GA/WeeksOutcome Route [facility] LgAnestheMarel LocaProviderFOB e ht en ia tn Unknown 2012 Arik live birNSVD 4lbs 14oFemale Shazia Lomeli a th - pre z ai term HPI 25 WEEK OB: Details: DANI HILL is a 22 year old who presents for routine OB visit. OB Visit TITO Calculator Estimated Delivery Date 07/15/18 Based on Ultrasound Date 12/03/17 Current WG 25w 0d Number 1 Expected Delivery Route/Plan Specific Issue/Plans flu vaccine: [] tdap vaccine: [] rhogam: na LARC form signed: [] labor support person: Jered pain management: epidural cut cord/dad catch: cut cord : no PP control planned: [] special requests: [] Initial Weight: 158 lb Date Weight BP Urine PrFHR FuHt Pres MoCTX DilationFetal StVisit NoProviderComments E ot v te [place] G Effac lucose ed Visit Notes Visit Date: 04/01/18 Doing well. No VB, LOF. Progesterone injections. No CTX ANJANA Vaughn on 04/01/18 Visit Date: 03/04/18 no vb lof good fm no regualr ctdx Mily Cano MD on 03/04/18 Visit Date: 02/04/18 no vb lof cramping, started progesterone injections Mily Cano MD on 02/04/18 Visit Date: 01/07/18 Some nausea but improving. No LOF, VB, cramping ANJANA Vaughn on 01/07/18 Visit Date: 12/03/17 No visit notes to display ACOG First Trimester First Trimester: Desire for , Alcohol, Tobacco Cessation, Illicit/Recreational Drug/Substance Use, Intimate Partner Violence, Barriers to care, Unstable Housing, Communication Barriers, Environmental/Work Hazards, Anticipated Course of Care, Toxoplasmosis Precations, Use of Any medications, Sexual activity, Exercise, Dental Care, Sauna/Hot tub use, Seat Belt use, Childbirth classes/Hospital facilities, , Travel, Indications for US and Screening for Aneuploidy Diagnostics Diagnostics Labs Blood Type B POSITIVE 01/07/18 Antibody Screen NEGATIVE 01/07/18 Hct 36.7 % (37-47) L 01/07/18 Hgb 11.7 g/dl (12.0-15.0) L 01/07/18 Obstetrics Ultrasound 03/26/18 Rubella IgG Antibody 54.4 IU/mL 01/07/18 RPR NONREACTIVE (NONREACTIVE) 01/07/18 Hep Bs Antigen Negative (Negative) 01/07/18 Chlam trachomat DNA PCR Negative (Negative) 12/03/17 N.gonorrhoeae DNA (PCR) Negative (Negative) 12/03/17 Details: HIV: Urine Culture: Sequential Screen: NIPT Screen: ROS Const Reports system reviewed and no additional complaints, except as docu GI Denies nausea, Denies vomiting, Denies abdominal pain Exam Const General: cooperative Nutritional Appearance: well nourished GI Palpation: soft, nontender, other (gravid) Results [id number] Office Urine Glucose Negative Last Edit by Brooke Tinoco on 04/01/18 11:01 Office Urine Protein Negative Last Edit by Brooke Tinoco on 04/01/18 11:01 Assessment AND Plan Problems 1. Supervision of high risk in second trimester O. PRR TITO 07/15/18 PC [place]robin [place] 2. History of delivery, currently O09.219 weekly progesterone injection 3. Asymptomatic bacteriuria during in first trimester O99.89; R82.71 keflex, neg repeat culture 4. 25 weeks gestation of Z3A.25 : 3 Elective abortions: Hx Para: 1 Spontaneous abortions: Hx # Term Pregnancies: Ectopic pregnancies: Hx # Pregnancies: Multiple births: : # of living children: Past Pregnancies 2012 Melva live - 4lbs 14oz Female Shazia Cisneros Plan Orders placed: none continue progesterone injections Reviewed of labor precautions, movement/kick counts ACOG trimester education reviewed and updated See problem list details for updated plan of care Gestational age appropriate handout given RTO: 3 weeks OB and 28 wk labs Orders Orders: Coding Level of Care Code Off vis,est,level 3 Diagnoses Supervision of high risk in second trimester O Trimester: second trimester History of delivery, currently O09.219 Asymptomatic bacteriuria during in first trimester O99.89; R82.71 25 weeks gestation of Z3A.25 Weeks of gestation: 25 weeks 04/01/18 1130 <Electronically signed by Antonette YEUNG> Date Antonette YEUNG Cosigner Signature: Date (if applicable) CC: OFFICE VISIT REPORT Observed: 03/29/2018 Status: F Source: [place] 3:09 PM [facility] [place] [address] OFFICE VISIT Date of Service: 03/29/18 MR#: [id number] Acct: [id number] Patient: DANI HILL Rep #: [id number] : 1995 Provider: DEB Aponte Age/Sex: 22/F Location: [facility] Status: Signed Intake Vital Signs03/29/18 Height 5 ft 7 in 03/29/18 Weight: 167 lb 2 oz 03/29/18 Body Mass Index (BMI) 26.2 03/29/18 Blood Pressure 130/74 Intake Visit Reasons: projesterone Footwear Sales Coordinator Required: No Allergies No Known Allergies Allergy (Verified 03/29/18 10:18) Medications vitamin,calcium,wwnglrgj-atif-vrwxr acid tablet 1 tab PO QDAY 12/03/17 [History Confirmed 03/29/18] hydroxyprogesterone (PF)( preserving) 250 mg/mL (1 mL) IM oil 250 mg IM QWEEK 02/04/18 [History Confirmed 03/29/18] Post menopausal: No Patient : No Office Meds Hyacinth Performing Provider: ANJANA Vaughn Administered by: Brooke Tinoco on 03/29/18 10:20 Dose Route Admin Location Lot Number Expiration Date NDC Toter 250 mg IM right gluteus [id number] 01/10/20 69644-232-42 AM [facility] Assessment AND Plan Orders Orders: Medications Discontinued: Hansen (hydroxyprogest(PF)(preg presv)) Csomwy563 mg IM ONCE NS Z87.51 Brooke Tinoco tinued Reason: Office Medication has been Docume nted as given 03/29/18 1509 <Electronically signed by Antonette YEUNG> Date Antonette Aponte COST ACCOUNTANT-C Cosigner Signature: Date (if applicable) CC: OB LIMITED (NO Observed: 03/26/2018 Status: F Source: [place] [facility]) 8:01 AM [facility] REPOSITORY [facility] Imaging Services [address] [place] [address] OB Limited (No Biometrics) MR#: [id number] Acct: [id number] Name: DANI HILL Rep #: [id number] : 1995 F 22 From: Kyrie Lyon MD PCP: Care Physician, No Primary Status: REG CLI Study: OB Limited (No Biometrics) Date of Exam: 03/26/18 Exam# [id number] Ordering Dr: Mily Cano MD STUDY: SECOND AND THIRD TRIMESTER OBSTETRICAL ULTRASOUND - LIMITED REASON FOR EXAM: Female, 22 years old. Follow-up anatomy. LMP: 10/08/2017 PRIOR ULTRASOUND: 02/24/2018. TECHNIQUE: Transabdominal ultrasound evaluation was performed. FINDINGS: There is a single intrauterine fetus. The fetus is in a breech presentation. There is demonstrated cardiac activity with a heart rate of 125 bpm. There is a normal amniotic fluid volume. The largest amniotic fluid pocket measures 3.8 cm.The placenta is anterior in location and is not low lying. There are Grade 0 placental changes. The cervix measures 4.1 cm cm in length. BIOMETRY: BPD: 6.1: 24 weeks, 6 days HC: 23.6: 25 weeks, 5 days AC: 20.6: 25 weeks, 2 days FL: 4.4: 24 weeks, 2 days Age by LMP: 24 weeks, 1 days. TITO by LMP: 07/15/2018. age by prior US: 25 weeks, 0 days. TITO by prior US: 2018. age by current US: 25 weeks, 1 days. TITO by current US: 07/08/2018. Estimated weight: 745 grams, +/- 109 grams, 75 percentile. Follow-up evaluation of the face and spine appear within normal limits. US/OB Limited (No Biometrics) IMPRESSION: Single live fetus in a breech presentation. Follow-up evaluation of the face and spine are within normal limits. Placenta is grade 0 and is not low-lying. Cervix is closed. age by current US: 25 weeks, 1 days. TITO by current US: 07/08/2018. Estimated weight: 745 grams, +/- 109 grams, 75 percentile. Electronically Signed: Kyrie Lyon MD at 17:12 EDT , Service support , CC: No Primary Care Physician; Mily Cano MD Director Prison: Signed OFFICE VISIT REPORT Observed: 03/24/2018 Status: F Source: [place] 10:[address] [place] [address] OFFICE VISIT Date of Service: 03/22/18 MR#: [id number] Acct: [id number] Patient: DANI HILL Rep #: [id number] : 1995 Provider: Mily Cano MD Age/Sex: 22/F Location: [facility] Status: Signed Intake Vital Signs03/22/18 Height 5 ft 7 in 03/22/18 Blood Pressure 118/78 Intake Visit Reasons: projesterone Footwear Sales Coordinator Required: No Is patient in pain?: No Allergies No Known Allergies Allergy (Verified 03/22/18 09:42) Medications vitamin,calcium,gfflqchd-bnlb-iomxi acid tablet 1 tab PO QDAY 12/03/17 [History Confirmed 03/22/18] hydroxyprogesterone (PF)( preserving) 250 mg/mL (1 mL) IM oil 250 mg IM QWEEK 02/04/18 [History Confirmed 03/22/18] Is last menstrual period known: No Post menopausal: No Patient : Yes Office Meds Hyacinth Performing Provider: Mily Cano MD Administered by: Monik Alexis on 03/22/18 09:43 Dose Route Admin Location Lot Number Expiration Date NDC Toter 250 mg IM [facility] [id number] 01/10/20 81697-505-17 [facility] Comments: left side Assessment AND Plan Orders Orders: Medications Discontinued: Hyacinth (hydroxyprogest(PF)(preg presv)) Trrcmwt088 mg IM ONCE NS Z87.51 Monik Reuben inued Reason: Office Medication has been Document ed as given 03/24/182228 <Electronically signed by Mily Cano MD> Date Mily Cano MD Cosigner Signature: Date (if applicable) CC: OFFICE VISIT REPORT Observed: 03/17/2018 Status: F Source: [place] 6:29 AM [address] [address] [place] [address] OFFICE VISIT Date of Service: 03/08/18 MR#: [id number] Acct: [id number] Patient: DANI HILL Rep #: [id number] : 1995 Provider: Mily Cano MD Age/Sex: 22/F Location: [facility] Status: Signed Intake Vital Signs03/08/18 Height 5 ft 7 in 03/08/18 Weight: 162 lb 2 oz 03/08/18 Body Mass Index (BMI) 25.4 03/08/18 Blood Pressure 130/79 Intake Visit Reasons: projesterone Footwear Sales Coordinator Required: No Allergies No Known Allergies Allergy (Verified 03/16/18 10:21) Medications vitamin,calcium,ufjskjfr-bklp-exbnf acid tablet 1 tab PO QDAY 12/03/17 [History Confirmed 03/16/18] hydroxyprogesterone (PF)( preserving) 250 mg/mL (1 mL) IM oil 250 mg IM QWEEK 02/04/18 [History Confirmed 03/16/18] Post menopausal: No Patient : Yes Office Meds Hyacinth Performing Provider: Mily Cano MD Administered by: Brooke Tinoco on 03/08/18 10:20 Dose Route Admin Location Lot Number Expiration Date NDC Toter 250 mg IM left gluteus [id number] 01/10/20 49633-073-73 [facility] Assessment AND Plan Orders Orders: Medications Discontinued: Hyacinth (hydroxyprogest(PF)(preg presv)) Jszkzu354 mg IM ONCE NS Z87.51 Brooke Tinoco tinued Reason: Office Medication has been Docume nted as given 03/17/18628 <Electronically signed by Mily Cano MD> Date Mily Cano MD Cosigner Signature: Date (if applicable) CC: OFFICE VISIT REPORT Observed: 03/17/2018 Status: F Source: [place] 6:[address] [place] [address] OFFICE VISIT Date of Service: 03/16/18 MR#: [id number] Acct: [id number] Patient: DANI HILL Rep #: [id number] : 1995 Provider: Mily Cano MD Age/Sex: 22/F Location: [facility] Status: Signed Intake Vital Signs03/16/18 Height 5 ft 7 in 03/16/18 Weight: 165 lb 8 oz 03/16/18 Body Mass Index (BMI) 25.9 03/16/18 Blood Pressure 116/66 Intake Visit Reasons: projesterone Footwear Sales Coordinator Required: No Allergies No Known Allergies Allergy (Verified 03/16/18 10:21) Medications vitamin,calcium,vwwdpvsx-uagp-wexdj acid tablet 1 tab PO QDAY 12/03/17 [History Confirmed 03/16/18] hydroxyprogesterone (PF)( preserving) 250 mg/mL (1 mL) IM oil 250 mg IM QWEEK 02/04/18 [History Confirmed 03/16/18] Post menopausal: No Patient : Yes Office Meds Hyacinth Performing Provider: Mily Cano MD Administered by: Brooke Tinoco on 03/16/18 10:22 Dose Route Admin Location Lot Number Expiration Date NDC Toter 250 mg IM right gluteus [id number] 01/10/20 57953-738-70 [facility] Assessment AND Plan Orders Orders: Medications Discontinued: Hansen (hydroxyprogest(PF)(preg presv)) Qopbin016 mg IM ONCE NS Z87.51 Brooke Tinoco tinued Reason: Office Medication has been Docume nted as given 03/17/18 06 <Electronically signed by Mily Cano MD> Date Mily Cano MD Cosigner Signature: Date (if applicable) CC: DIRECTOR OF SEARCH ENGINE MARKETING OFFICE VISIT Observed: 03/04/2018 Status: F Source: [place] REPORT 3:29 PM [facility] [address] [place] [address] OFFICE VISIT Date of Service: 03/04/18 MR#: [id number] Acct: [id number] Name: DANI HILL Mushtaq Rep #: [id number] : 1995 Provider: Mily Cano MD Age/Sex: 22/F Location: [facility] Status: Signed Intake Vital Signs03/04/18 Height 5 ft 7 in 03/04/18 Weight: 163 lb 03/04/18 Body Mass Index (BMI) 25.5 03/04/18 Blood Pressure 109/72 Intake Visit Reasons: 21 WEEK OB Chief Complaint: Found a lump on left side pelvic area Footwear Sales Coordinator Required: No Is patient in pain?: No Allergies No Known Allergies Allergy (Verified 03/04/18 15:06) Medications vitamin,calcium,ugsayxvc-wvxs-puojf acid tablet 1 tab PO QDAY 12/03/17 [History Confirmed 03/01/18] hydroxyprogesterone (PF)( preserving) 250 mg/mL (1 mL) IM oil 250 mg IM QWEEK 02/04/18 [History Confirmed 03/01/18] Last Menstral Period: 10/01/17 Zika: Zika virus screening: Negative : No PFSH PFSH Surgical History H/O dilation and curettage (Acute) Social History Smoking Status: Never smoker alcohol intake: never substance use type: does not use caffeine: No what type of physical activity do you participate in: none, walking seatbelt use: always do you feel safe at home: Yes additional social history: Jered- [employer] Patient stays at home Pregancy History 3 Elective abortions Hx Para 1 Spontaneous abortions 1 Past Pregnancies Del. DatName GA/WeeksOutcome [facility] Lg[facility]Del LocaProviderFOB e ht en ia tn Unknown 2012 Ari[address] live birNSVD 4lbs 14oFemale Shazia Owen Will a th - pre z ai term HPI 21 WEEK OB: Details: DANI HILL is a 22 year old who presents for routine OB visit. OB Visit TITO Calculator Estimated Delivery Date 07/15/18 Based on Ultrasound Date 12/03/17 Current WG 21w 0d Number 1 Expected Delivery Route/Plan Specific Issue/Plans flu vaccine: [] minichart given: [] tdap vaccine: [] rhogam: [] LARC form signed: [] labor support person: Jered pain management: epidural cut cord/dad catch: cut cord : no PP control planned: [] special requests: [] Initial Weight: 158 lb Date Weight BP Urine PrFHR FuHt Pres MoCTX DilationFetal StVisit NoProviderComments E ot v te GA G Effac lucose ed Visit Notes Visit Date: 03/04/18 no vb lof good fm no regualr ctdx Mily Cano MD on 03/04/18 Visit Date: 02/04/18 no vb lof cramping, started progesterone injections Mily Cano MD on 02/04/18 Visit Date: 01/07/18 Some nausea but improving. No LOF, VB, cramping Antonette Aponte NP-C on 01/07/18 Visit Date: 12/03/17 No visit notes to display ACOG First Trimester First Trimester: Desire for , Alcohol, Tobacco Cessation, Illicit/Recreational Drug/Substance Use, Intimate Partner Violence, Barriers to care, Unstable Housing, Communication Barriers, Environmental/Work Hazards, Anticipated Course of Care, Toxoplasmosis Precations, Use of Any medications, Sexual activity, Exercise, Dental Care, Sauna/Hot tub use, Seat Belt use, Childbirth classes/Hospital facilities, , Travel, Indications for US and Screening for Aneuploidy Diagnostics Diagnostics Labs Blood Type B POSITIVE 01/07/18 Antibody Screen NEGATIVE 01/07/18 Hct 36.7 % (37-47) L 01/07/18 Hgb 11.7 g/dl (12.0-15.0) L 01/07/18 Obstetrics Ultrasound 02/24/18 Rubella IgG Antibody 54.4 IU/mL 01/07/18 RPR NONREACTIVE (NONREACTIVE) 01/07/18 Hep Bs Antigen Negative (Negative) 01/07/18 Chlam trachomat DNA PCR Negative (Negative) 12/03/17 N.gonorrhoeae DNA (PCR) Negative (Negative) 12/03/17 Details: HIV: Urine Culture: Sequential Screen: NIPT Screen: Results [id number] Office Urine Glucose Negative Last Edit by Monik Alexis on 03/04/18 15:03 Office Urine Protein Negative Last Edit by Monik Alexis on 03/04/18 15:03 Assessment AND Plan Problems 1. Supervision of high risk in second trimester O09.92 PRR TITO 07/15/18 PC Melva boyfriend Jered 2. Asymptomatic bacteriuria during in first trimester O99.89; R82.71 keflex, neg repeat culture 3. History of delivery, currently O09.219 weekly progesterone injection 4. 17 weeks gestation of Z3A.17 : 3 Elective abortions: Hx Para: 1 Spontaneous abortions: Hx # Term Pregnancies: Ectopic pregnancies: Hx # Pregnancies: Multiple births: : # of living children: Past Pregnancies 2012 Melva live - 4lbs 14oz Female [facility] Plan ACOG trimester education reviewed and updated. see problem list details for updated plan management information and see below for orders placed at this visit. [place] appropriate handout given. Orders Orders: Coding Level of Care Code OB Routine Diagnoses Supervision of high risk in second trimester O09.92 Trimester: second trimester Asymptomatic bacteriuria during in first trimester O99.89; R82.71 History of delivery, currently O09.219 17 weeks gestation of Z3A.17 Weeks of gestation: 17 weeks 03/04/18 1529 <Electronically signed by Mily Cano MD> Date Mily Cano MD Cosigner Signature: Date (if applicable) CC: OFFICE VISIT REPORT Observed: 03/02/2018 Status: F Source: [place] 6:33 AM [address] [place] [address] OFFICE VISIT Date of Service: 03/01/18 MR#: [id number] Acct: [id number] Patient: DANI HILL Rep #: [id number] : 1995 Provider: Mily Cano MD Age/Sex: 22/F Location: [facility] Status: Signed Intake Vital Signs03/01/18 Height 5 ft 7 in 03/01/18 Weight: 161 lb 8 oz 03/01/18 Body Mass Index (BMI) 25.2 03/01/18 Blood Pressure 126/80 Intake Visit Reasons: projesterone Chief Complaint: est ob Footwear Sales Coordinator Required: No Allergies No Known Allergies Allergy (Verified 03/01/18 10:34) Medications vitamin,calcium,ujtcmbyi-lqoq-sbitd acid tablet 1 tab PO QDAY 12/03/17 [History Confirmed 03/01/18] hydroxyprogesterone (PF)( preserving) 250 mg/mL (1 mL) IM oil 250 mg IM QWEEK 02/04/18 [History Confirmed 03/01/18] Post menopausal: No Patient : Yes Office Meds Hyacinth Performing Provider: Mily Cano MD Administered by: Brooke Tinoco on 03/01/18 10:36 Dose Route Admin Location Lot Number Expiration Date NDC Toter 250 mg IM right gluteus [id number] 01/10/20 48261-242-43 [facility] Assessment AND Plan Orders Orders: Medications Discontinued: Hansen (hydroxyprogest(PF)(preg presv)) Ufonqq963 mg IM ONCE NS Z87.51 Brooke Tinoco tinued Reason: Office Medication has been Docume nted as given 03/02/18 0633 <Electronically signed by Mily Cano MD> Date Mily Cano MD Cosigner Signature: Date (if applicable) CC: OFFICE VISIT REPORT Observed: 02/24/2018 Status: F Source: [place] 1:[address] [place] [address] OFFICE VISIT Date of Service: 02/08/18 MR#: [id number] Acct: [id number] Patient: DANI HILL Rep #: [id number] : 1995 Provider: DEB Aponte Age/Sex: 22/F Location: [facility] Status: Signed Intake Vital Signs02/08/18 Height 5 ft 7 in 02/08/18 Weight: 159 lb 02/08/18 Body Mass Index (BMI) 24.9 02/08/18 Blood Pressure 134/85 Intake Visit Reasons: injection Chief Complaint: est ob Footwear Sales Coordinator Required: No Allergies No Known Allergies Allergy (Verified 02/15/18 08:30) Medications vitamin,calcium,anhbstce-lmfr-groej acid tablet 1 tab PO QDAY 12/03/17 [History Confirmed 02/15/18] hydroxyprogesterone (PF)( preserving) 250 mg/mL (1 mL) IM oil 250 mg IM QWEEK 02/04/18 [History Confirmed 02/15/18] Post menopausal: No Patient : Yes Office Meds Hyacinth Performing Provider: ANJANA Vaughn Administered by: Brooke Tinoco on 02/08/18 08:33 Dose Route Admin Location Lot Number Expiration Date NDC Toter 250 mg IM left gluteus [id number] 12/10/20 66387-764-13 [facility] Assessment AND Plan Orders Orders: Medications Discontinued: Hansen (hydroxyprogest(PF)(preg presv)) Hujgfo243 mg IM ONCE NS Z87.51 Brooke Tinoco tinued Reason: Office Medication has been Docume nted as given 02/24/18 1304 <Electronically signed by Antonette YEUNG> Date Antonette YEUNG Cosigner Signature: Date (if applicable) CC: OB ANATOMY SCAN Observed: 02/24/2018 Status: F Source: [place] 12:08 PM [facility] REPOSITORY [facility] Imaging Services [address] [place] [address] OB Anatomy Scan MR#: [id number] Acct: [id number] Name: LIZDANI BLOOD Mushtaq Rep #: [id number] : 1995 F 22 From: Chan Mcmahon MD PCP: Care Physician, No Primary Status: REG CLI Study: OB Anatomy Scan Date of Exam: 02/24/18 Exam# [id number] Ordering Dr: Mily Cano MD STUDY: SECOND AND THIRD TRIMESTER OBSTETRICAL ULTRASOUND REASON FOR EXAM: Female, 22 years old. Anatomy LMP: TECHNIQUE: Transabdominal PRIOR ULTRASOUND: None. FINDINGS: There is a single intrauterine fetus. The fetus is in a cephalic presentation. There is demonstrated cardiac activity with a heart rate of 147 bpm. There is a normal amniotic fluid volume. The largest amniotic fluid pocket measures 6.1 cm. The placenta is 53 There are Grade 0 placental changes. The cervix measures 43 mm in length. The bilateral adnexal regions are normal. BIOMETRY: BPD: 49mm: 21 weeks, 0 days HC: 187mm: 21 weeks, 0 days AC: 154mm: 20 weeks, 5 days FL: 32mm: 20 weeks, 0 days CI: 76 FL/BPD: 65 FL/AC: 21 HC/AC: 1.21 age by current US: 20 weeks, 5 days. TITO by current US: 12.28.18. Estimated weight: 351 grams, +/- 51 grams, 76 %. Age by LMP: 19 weeks, 6 days. TITO by LMP: 1.3.19. ANATOMY: Gender: Male Cranium: Normal lateral ventricles. Normal choroid plexus. Normal cerebellum. Normal cisterna magna. The face, nose and lips are not visualized. Chest: Normal 4-chamber heart. Abdomen/Pelvis: Normal diaphragm. Normal stomach. Normal abdominal wall. Normal cord insertion. Normal 3 vessel cord. Normal kidneys. Normal bladder. Spine: Normal cervical spine. Normal thoracic spine. Normal lumbar spine. Normal sacrum. Extremities: Normal bilateral upper extremities. Normal bilateral lower extremities. US/OB Anatomy Scan IMPRESSION: Unremarkable anatomic survey. However, The face, nose and lips are not visualized. There is a single live intrauterine with a heart rate of 147 bpm. age by current US: 20 weeks, 5 days. TITO by current US: 12.28.18. Electronically Signed: Chan Mcmahon MD at 21:31 EDT , Service support , CC: No Primary Care Physician; Mily Cano MD Director Prison: Signed OFFICE VISIT REPORT Observed: 02/22/2018 Status: F Source: [place] 10:08 AM [address] [place] [address] [address] OFFICE VISIT Date of Service: 02/22/18 MR#: [id number] Acct: [id number] Patient: DANI HILL Rep #: [id number] : 1995 Provider: Mily Cano MD Age/Sex: 22/F Location: [facility] Status: Signed Intake Intake Visit Reasons: PROJESTERONE INJECTION Chief Complaint: est ob Allergies No Known Allergies Allergy (Verified 02/15/18 08:30) Medications vitamin,calcium,knglatta-nccr-drmso acid tablet 1 tab PO QDAY 12/03/17 [History Confirmed 02/15/18] hydroxyprogesterone (PF)( preserving) 250 mg/mL (1 mL) IM oil 250 mg IM QWEEK 02/04/18 [History Confirmed 02/15/18] Office Meds Hyacinth Performing Provider: Mily Cano MD Administered by: Monik Alexis on 02/22/18 09:05 Dose Route Admin Location Lot Number Expiration Date NDC Toter 250 mg IM [facility] [id number] 12/10/20 76567-716-10 [facility] Assessment AND Plan Orders Orders: Medications Discontinued: Hyacinth (hydroxyprogest(PF)(preg presv)) Laxichk518 mg IM ONCE NS Z87.51 Monik Alexis inued Reason: Office Medication has been Document ed as given 02/22/18 1008 <Electronically signed by Mily Cano MD> Date Mily Cano MD Cosigner Signature: Date (if applicable) CC: OFFICE VISIT REPORT Observed: 02/21/2018 Status: F Source: [place] 12:06 AM [facility] [place] [address] OFFICE VISIT Date of Service: 02/15/18 MR#: [id number] Acct: [id number] Patient: DANI HILL Rep #: [id number] : 1995 Provider: Mily Cano MD Age/Sex: 22/F Location: [facility] Status: Signed Intake Vital Signs02/15/18 Height 5 ft 7 in 02/15/18 Weight: 159 lb 8 oz 02/15/18 Body Mass Index (BMI) 25.0 02/15/18 Blood Pressure 124/78 Intake Visit Reasons: injection Chief Complaint: est ob Footwear Sales Coordinator Required: No Is patient in pain?: No Allergies No Known Allergies Allergy (Verified 02/15/18 08:30) Medications vitamin,calcium,olbbjxqt-qnvu-wbntr acid tablet 1 tab PO QDAY 12/03/17 [History Confirmed 02/15/18] hydroxyprogesterone (PF)( preserving) 250 mg/mL (1 mL) IM oil 250 mg IM QWEEK 02/04/18 [History Confirmed 02/15/18] Post menopausal: No Patient : Yes Office Meds Hansen Performing Provider: Mily Cano MD Administered by: Monik Alexis on 02/15/18 08:42 Dose Route Admin Location Lot Number Expiration Date NDC Toter 250 mg IM right gluteal [id number] 12/10/20 28263-950-52 [facility] Comments: Pt. brought the medication with her to the appointment Assessment AND Plan Orders Orders: Medications Discontinued: Hansen (hydroxyprogest(PF)(preg presv)) Jptmnch090 mg IM ONCE NS Z87.51 Monik Alexis inued Reason: Office Medication has been Document ed as given 02/21/18 0006 <Electronically signed by Mily Cano MD> Date Mily Cano MD Cosigner Signature: Date (if applicable) CC: DIRECTOR OF SEARCH ENGINE MARKETING OFFICE VISIT Observed: 02/04/2018 Status: F Source: [place] REPORT 2:23 PM [facility] REPOSITORY [place] [facility] [address] [place] [address] OFFICE VISIT Date of Service: 02/04/18 MR#: [id number] Acct: [id number] Name: DANI HILL Rep #: [id number] : 1995 Provider: Mily Cano MD Age/Sex: 22/F Location: [facility] Status: Signed Intake Vital Signs02/04/18 Height 5 ft 7 in 02/04/18 Weight: 158 lb 4 oz 02/04/18 Body Mass Index (BMI) 24.7 02/04/18 Blood Pressure 124/68 Intake Visit Reasons: 17 WEEK OB Chief Complaint: est ob Footwear Sales Coordinator Required: No Is patient in pain?: No Allergies No Known Allergies Allergy (Verified 02/04/18 14:11) Medications vitamin,calcium,zjavyqfa-swpv-vnkda acid tablet 1 tab PO QDAY 12/03/17 [History Confirmed 02/04/18] hydroxyprogesterone (PF)( preserving) 250 mg/mL (1 mL) IM oil 250 mg IM QWEEK 02/04/18 [History Confirmed 02/04/18] Last Menstral Period: 10/01/17 Zika: Zika virus screening: Negative : No PFSH PFSH Surgical History H/O dilation and curettage (Acute) Social History Smoking Status: Never smoker alcohol intake: never substance use type: does not use caffeine: No what type of physical activity do you participate in: none, walking seatbelt use: always do you feel safe at home: Yes additional social history: Jered- [employer] Patient stays at home Pregancy History 3 Elective abortions Hx Para 1 Spontaneous abortions 1 Past Pregnancies Del. DatName GA/WeeksOutcome Route [facility] LocaProviderFOB e ht en th ia tn Unknown 2012 Arik live birNSVD 4lbs 14oFemale Shazia Owen Will a th - pre z ai term HPI 17 WEEK OB: Details: DANI HILL is a 22 year old who presents for routine OB visit. OB Visit TITO Calculator Estimated Delivery Date 07/15/18 Based on Ultrasound Date 12/03/17 Current WG 17w 0d Number 1 Expected Delivery Route/Plan Specific Issue/Plans flu vaccine: [] minichart given: [] tdap vaccine: [] rhogam: [] LARC form signed: [] labor support person: Jered pain management: epidural cut cord/dad catch: cut cord : no PP control planned: [] special requests: [] Initial Weight: 158 lb Date Weight BP Urine PFHR FuHt Pres MCTX DilatioFetal SVisit NProvideComment rot ov n t ote r s EGA Ef Gluco faced se 12/03/1157 lb 124/71 8 (+0 oz) 8w 0d Visit Notes Visit Date: 02/04/18 no vb lof cramping, started progesterone injections Mily Cano MD on 02/04/18 Visit Date: 01/07/18 Some nausea but improving. No LOF, VB, cramping Antonette Aponte NP-Bandar on 01/07/18 Visit Date: 12/03/17 No visit notes to display ACOG First Trimester First Trimester: Desire for , Alcohol, Tobacco Cessation, Illicit/Recreational Drug/Substance Use, Intimate Partner Violence, Barriers to care, Unstable Housing, Communication Barriers, Environmental/Work Hazards, Anticipated Course of Care, Toxoplasmosis Precations, Use of Any medications, Sexual activity, Exercise, Dental Care, Sauna/Hot tub use, Seat Belt use, Childbirth classes/Hospital facilities, , Travel, Indications for US and Screening for Aneuploidy Diagnostics Diagnostics Labs Blood Type B POSITIVE 01/07/18 Antibody Screen NEGATIVE 01/07/18 Hct 36.7 % (37-47) L 01/07/18 Hgb 11.7 g/dl (12.0-15.0) L 01/07/18 Rubella IgG Antibody 54.4 IU/mL 01/07/18 RPR NONREACTIVE (NONREACTIVE) 01/07/18 Hep Bs Antigen Negative (Negative) 01/07/18 Chlam trachomat DNA PCR Negative (Negative) 12/03/17 N.gonorrhoeae DNA (PCR) Negative (Negative) 12/03/17 Details: HIV: Urine Culture: Sequential Screen: NIPT Screen: Results [id number] Office Urine Glucose Negative Last Edit by Afshan Magana on 02/04/18 14:12 Office Urine Protein Negative Last Edit by Afshan Magana on 02/04/18 14:12 Assessment AND Plan Problems 1. Asymptomatic bacteriuria during in first trimester O99.89; R82.71 keflex, neg repeat culture 2. History of delivery, currently O09.219 weekly progesterone injection 3. Supervision of high risk in second trimester O09. PRR TITO 07/15/18 PC Melva boyfrienrobin Jered 4. 17 weeks gestation of Z3A.17 : 3 Elective abortions: Hx Para: 1 Spontaneous abortions: Hx # Term Pregnancies: Ectopic pregnancies: Hx # Pregnancies: Multiple births: : # of living children: Past Pregnancies 2012 Melva live - 4lbs 14oz Female [facility] Plan ACOG trimester education reviewed and updated. see problem list details for updated plan management information and see below for orders placed at this visit. [place] appropriate handout given. Orders Orders: Coding Level of Care Code OB Routine Diagnoses Asymptomatic bacteriuria during in first trimester O99.89; R82.71 History of delivery, currently O09. Supervision of high risk in second trimester O09 Trimester: second trimester 17 weeks gestation of Z3A.17 Weeks of gestation: 17 weeks 02/04/18 1423 <Electronically signed by Mily Cano MD> Date Mily Hinojosaign Signature: Date (if applicable) CC: OFFICE VISIT REPORT Observed: 02/02/2018 Status: F Source: [place] 12:47 AM [facility] REPOSITORY [facility] Services [address] [address] OFFICE VISIT Date of Service: 02/01/18 MR#: [id number] Acct: [id number] Patient: DANI HILL Rep #: [id number] : 1995 Provider: Mily Cano MD Age/Sex: 22/F Location: [facility] Status: Signed Intake Vital Signs02/01/18 Height 5 ft 7 in 02/01/18 Weight: 157 lb 4 oz 02/01/18 Body Mass Index (BMI) 24.6 02/01/18 Blood Pressure 125/73 Intake Visit Reasons: projesterone injection Footwear Sales Coordinator Required: No Allergies No Known Allergies Allergy (Verified 02/01/18 11:31) Medications vitamin,calcium,yyvirecs-lulu-bhgxm acid tablet 1 tab PO QDAY 12/03/17 [History Confirmed 02/01/18] Post menopausal: No Patient : Yes Office Meds Hyacinth Performing Provider: Mily Cano MD Administered by: Brooke Tinoco on 02/01/18 12:31 Dose Route Admin Location Lot Number Expiration Date NDC Toter 250 mg IM right gluteus [id number] 12/10/20 23458-061-36 [facility] Assessment AND Plan Orders Orders: Medications Discontinued: Hansen (hydroxyprogest(PF)(preg presv)) Vyjcah567 mg IM ONCE NS Z87.51 Brooke Tinoco tinued Reason: Office Medication has been Docume nted as given 02/02/18 0047 <Electronically signed by Mily Cano MD> Date Mily Cano MD Cosigner Signature: Date (if applicable) CC: Observed: 01/07/2018 Status: F Source: [place] CULTURE, URINE 1:32 PM [facility] REPOSITORY Urine Culture ORGANISM 1: Lactobacillus species Girard Count 25,000-50,000 Performed By: #### M100.0650 #### [facility] [address] [place], [place], [id number] CBC W/DIFF, AUTOMATED Collected: 01/07/2018 Status: F Source: [place] 10:10 AM [facility] REPOSITORY TYPE CODE TESTS RESULT OUT OF RANGE REFERENCE UNITS LAB L100.1000 4.4-11.0 K/mm3 Low WBC 4.2 LAB L100.1200 4.2-5.4 M/mm3 Normal RBC 4.95 LAB L100.1300 12.0-15.0 g/dl Low HGB 11.7 LAB L100.1400 37-47 % Low HCT 36.7 LAB L100.1500 81-99 fL Low MCV 74.1 LAB L100.1600 27.0-32.0 pg Low MCH 23.6 LAB L100.1700 32-36 g/gl Low MCHC 31.9 LAB L100.1810 11.6-14.6 % High RDW CV 24.1 LAB L100.1820 35.1-43.9 fl High RDW SD 62.3 LAB L100.1900 150-450 K/mm3 Normal PLT 275 LAB L100.2000 6.2-12.0 fl Normal MPV 10.8 LAB L100.2100 47-70 % Normal NEUT% 61.2 LAB L100.2200 19-41 % Normal LY% 29.1 LAB L100.2300 0-10 % Normal MONO% 6.6 LAB L100.2400 0-5 % Normal EO% 2.4 LAB L100.2500 0-1 % Normal BASO% 0.5 LAB L100.2550 0.0-0.9 % Normal IM GRAN % 0.200 Result Comment: IG% - Immature Granulocytes (promyelocytes, myelocytes and metamyelocytes) > 1% indicates that a LEFT SHIFT is Present. LAB L100.2620 2.0-7.7 X10 3/uL Absolute Neut Normal 2.6 LAB L100.2720 0.83-4.51 X10 3/ul Absolute Lymph Normal 1.23 LAB L100.7300 ANISO Normal 1+ LAB L100.7600 HYPOCHROMASIA Normal 1+ Performed By: #### L100.0100, B101.7450 #### [facility] [address] [place] [address]. [place], [address] #### L3100.0390 #### [facility] (refer to report for specific site) refer to report for address and phone number TYPE AND SCREEN Collected: 01/07/2018 Status: F Source: FAWN 10:10 AM [facility] REPOSITORY Order Comment: Reason for Type AND Screen/Red Cells: TYPE CODE TESTS RESULT OUT OF RANGE REFERENCE UNITS LAB B10.0800 B Normal BLOOD TYPE GEL POSITIVE LAB B100.4000 Normal Antibody NEGATIVE Screen Performed By: #### L100.0100, B101.7450 #### [facility] [address] [place] [address]. [place], [address] #### L3100.0390 #### [facility] (refer to report for specific site) refer to report for address and phone number HEPATITIS B SURFACE Collected: 01/07/2018 Status: F Source: FAWN AG 10:10 AM [facility] REPOSITORY TYPE CODE TESTS RESULT OUT OF RANGE REFERENCE UNITS LAB L3100.0400 Negative Normal HB Negative SURF AG Result Comment: Performed at: [facility] [id number] Cannery Tender Engineer: Stanley Nguyen PhD, Phone: [phone] Performed By: #### L100.0100, B101.7450 #### [facility] [address] [place] [address]. [place], [address] #### L3100.0390 #### [facility] (refer to report for specific site) refer to report for address and phone number RAPID PLASMIN REAGIN Collected: 01/07/2018 Status: F Source: FAWN (RPR) 10:10 AM [facility] REPOSITORY TYPE CODE TESTS RESULT OUT OF REFERENCE UNITS RANGE LAB L700.5000 NONREACTIVE NONREACTIVE Normal RPR Performed By: #### L700.5000, L509.4000, L3890.6005 #### [facility] [address] [place] [address]. [place], [address] RUBELLA IGG Collected: 01/07/2018 Status: F Source: FAWN 10:10 AM [facility] REPOSITORY TYPE CODE TESTS RESULT OUT OF RANGE REFERENCE UNITS LAB L509.4000 IU/mL Normal Rubella IgG 54.4 Result Comment: Antibody results Interpretation of Immune Status < 5 IU/ml Presumed Non-immune 5 - < 10 IU/ml Equivocal > or = 10 IU/ml Presumed Immune Performed By: #### L700.5000, L509.4000, L3890.6005 #### [facility] [address] [place], [address] HIV - [facility] Collected: 01/07/2018 Status: F Source: FAWN 10:10 AM [facility] REPOSITORY TYPE CODE TESTS RESULT OUT OF RANGE REFERENCE UNITS LAB L3890.6005 Nonreactive Normal HIV - [facility] Non-Reactive Performed By: #### L700.5000, L509.4000, L3890.6005 #### [facility] [address] [place], [address] DIRECTOR OF SEARCH ENGINE MARKETING OFFICE VISIT Observed: 01/07/2018 Status: F Source: FAWN REPORT 10:03 AM [facility] REPOSITORY [facility] [address] [place] [address] OFFICE VISIT Date of Service: 01/07/18 MR#: [id number] Acct: [id number] Name: DANI HILL Rep #: [id number] : 1995 Provider: DEB Aponte Age/Sex: 22/F Location: [facility] Status: Signed Intake Vital Signs01/07/18 Height 5 ft 7 in 01/07/18 Weight: 156 lb 8 oz 01/07/18 Body Mass Index (BMI) 24.5 01/07/18 Blood Pressure 110/64 Intake Visit Reasons: 12 WEEK OB Allergies No Known Allergies Allergy (Verified 01/07/18 09:38) Medications vitamin,calcium,fprygpjz-yynk-fycva acid tablet 1 tab PO QDAY 12/03/17 [History Confirmed 01/07/18] Last Menstral Period: 10/01/17 Zika: Zika virus screening: Negative : No PFSH PFSH Surgical History H/O dilation and curettage (Acute) Social History Smoking Status: Never smoker alcohol intake: never substance use type: does not use caffeine: No what type of physical activity do you participate in: none, walking seatbelt use: always do you feel safe at home: Yes additional social history: Jered- [employer] Patient stays at home Pregancy History 3 Elective abortions Hx Para 1 Spontaneous abortions Past Pregnancies Del. DatName GA/WeeksOutcome Route [facility] WeigInfant GLaflaco LgAnesthesDel LocaProviderFOB e ht en th ia tn Unknown 2012 Ari[address] live birNSVD 4lbs 14oFemale Shazia Owen Will a th - pre z ai term HPI 12 WEEK OB: Details: DANI HILL is a 22 year old who presents for routine OB visit. OB Visit TITO Calculator Estimated Delivery Date 07/15/18 Based on Ultrasound Date 12/03/17 Current WG 13w 0d Number 1 Expected Delivery Route/Plan Specific Issue/Plans flu vaccine: [] minichart given: [] tdap vaccine: [] rhogam: [] LARC form signed: [] labor support person: Jered pain management: epidural cut cord/dad catch: cut cord : no PP control planned: [] special requests: [] Initial Weight: Not Recorded Date Weight BP Urine PFHR FuHt Pres MCTX DilatioFetal SVisit NProvideComment rot ov n t ote r s EGA Ef Gluco faced se 12/03/1157 lb 124/71 8 8w 0d Visit Notes Visit Date: 01/07/18 Some nausea but improving. No LOF, VB, cramping ANJANA Vaughn on 01/07/18 Visit Date: 12/03/17 No visit notes to display ACOG First Trimester First Trimester: Desire for , Alcohol, Tobacco Cessation, Illicit/Recreational Drug/Substance Use, Intimate Partner Violence, Barriers to care, Unstable Housing, Communication Barriers, Environmental/Work Hazards, Anticipated Course of Care, Toxoplasmosis Precations, Use of Any medications, Sexual activity, Exercise, Dental Care, Sauna/Hot tub use, Seat Belt use, Childbirth classes/Hospital facilities, , Travel, Indications for US and Screening for Aneuploidy Diagnostics Diagnostics Labs Chlam trachomat DNA PCR Negative (Negative) 12/03/17 N.gonorrhoeae DNA (PCR) Negative (Negative) 12/03/17 Details: HIV: Urine Culture: Sequential Screen: NIPT Screen: Results [id number] Office Urine Glucose Negative Last Edit by Jennifer De Santiago on 01/07/18 09:46 Office Urine Protein Negative Last Edit by Jennifer De Santiago on 01/07/18 09:46 Assessment AND Plan Problems 1. Supervision of high risk in first trimester O09.91 TITO 07/15/18 PC Melva [place] 2. Asymptomatic bacteriuria during in first trimester O99.89; R82.71 keflex, needs repeat culture 3. History of delivery, currently O09.219 plan progesterone injection 4. 12 weeks gestation of Z3A.12 Plan Orders placed: urine culture Start Hansen at 16 weeks Anatomy US 19-20 weeks Reviewed of labor precautions, movement/kick counts ACOG trimester education reviewed and updated See problem list details for updated plan of care Gestational age appropriate handout given RTO: 4 weeks Orders Orders: Coding Level of Care Code OB Routine Diagnoses Supervision of high risk in first trimester O09 Trimester: first trimester Asymptomatic bacteriuria during in first trimester O99.89; R82.71 History of delivery, currently O09.219 12 weeks gestation of Z3A.12 01/07/18 1003 <Electronically signed by Antonette YEUNG> Date Antonette YEUNG Cosigner Signature: Date (if applicable) CC: DIRECTOR OF SEARCH ENGINE MARKETING OFFICE VISIT Observed: 12/08/2017 Status: F Source: FAWN REPORT 6:24 AM [facility] [address] [place] [address] OFFICE VISIT Date of Service: 12/03/17 MR#: [id number] Acct: [id number] Name: DANI HILL Rep #: [id number] : 1995 Provider: Mily Cano MD Age/Sex: 22/F Location: 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 Is patient in pain?: No Allergies No Known Allergies Allergy (Unverified 12/03/17 08:14) Medications cephalexin 500 mg capsule 500 mg PO BID 12/03/17 [History Confirmed 12/03/17] vitamin,calcium,henunxlo-ntqq-bdbtd acid tablet 1 tab PO QDAY 12/03/17 [History Confirmed 12/03/17] Last Menstral Period: 10/01/17 Zika: Zika virus screening: Negative : No PFSH PFSH Surgical History H/O dilation and curettage (Acute) Social History Smoking Status: Never smoker alcohol intake: never substance use type: does not use caffeine: No what type of physical activity do you participate in: none, walking seatbelt use: always do you feel safe at home: Yes additional social history: Jered- [employer] Patient stays at home Pregancy History 3 Elective abortions Hx Para 1 Spontaneous abortions Past Pregnancies Del. DatName GA/WeeksOutcome Route [facility] LocaProviderFOB e ht en ia tn Unknown 2012 [address] Will a th - pre z ai term HPI NEW OB - LMP 10/01: Details: DANI HILL is a 22 year old who presents for New OB visit. OB Visit TITO Calculator Estimated Delivery Date 07/15/18 Based on Ultrasound Date 12/03/17 Current WG 8w 5d Number 1 Comments: bedside ultrasound done fht 170 crl inconsistent with lmp so tito changed. Expected Delivery Route/Plan Specific Issue/Plans flu vaccine: [] minichart given: [] tdap vaccine: [] rhogam: [] LARC form signed: [] labor support person: [] pain management: [] cut cord/dad catch: [] : [] PP control planned: [] special requests: [] Initial Weight: Not Recorded Date Weight BP Urine PrFHR FuHt Pres MoCTX DilationFetal StVisit NoProviderComments E ot v te GA G Effac lucose ed Menstrual History Last Menstral Period: 10/01/17 Reported LMP: definite Normal amount/duration: Yes On hormonal BC at conception: No Antepartum Record Genetic Screening: Congenital Heart Defect: Other, Neural Tube Defect: Other, Hemoglobinopathy Or Carrier: Other, Cystic Fibrosis: Other, Chromosome Abnormality: Other, Armani-Sachs: Other, Hemophilia: Other, Intellectual Disability/Autism: Other, Recurrent Loss/Stillbirth: Other, Other Structural Defect: Other, Other Genetic Disease: Other, Maternal Metabolic Disorder: Other Infection History: Live with someone with TB or Exposed to TB: No, Patient or Partner has history of Genital Herpes: No, Rash or Viral illness since last mentrual period: No, Prior GBS-Infected child: No, History of STD: No, HIV Infection: No, History of Hepatitis: No, Recent travel outside of [place]: No, Concern for Hep exposure: No, Varicella immune: Yes (vaccinated) Medical History Medical History: Negative: Diabetes, Hypertension, Heart disease, Auto-immune disorder, Kidney disease/UTI, Neurologic/epilepsy, Psychiatric, Depression/ depression, Hepatitis/liver disease, Varicosities/phlebitis, Thyroid dysfunction, Trauma/domestic violence, History of blood transfusions, D (Rh) Sensitized, Pulmonary (e.g.,TB,Asthma), Seasonal allergies, Drug/latex allergies/reactions, Breast, Manager Material surgery, Operations/hospitalizations, Anesthetic complications, History of abnormal pap, Uterine anomaly/westley, Infertility, Anti-retroviral treatment, Relevant family history, Other ACOG First Trimester First Trimester: Desire for , Alcohol, Tobacco Cessation, Illicit/Recreational Drug/Substance Use, Intimate Partner Violence, Barriers to care, Unstable Housing, Communication Barriers, Environmental/Work Hazards, Anticipated Course of Care, Nurtrition and weight gain, Toxoplasmosis Precations, Use of Any medications, Sexual activity, Exercise, Dental Care, Sauna/Hot tub use, Seat Belt use, Childbirth classes/Hospital facilities, , Travel, Indications for US and Screening for Aneuploidy ROS Const Denies fever(s), Reports system reviewed and no additional complaints, except as docu, Reports fatigue Eyes Reports system reviewed and no additional complaints, except as docu ENT Reports system reviewed and no additional complaints, except as docu Card Denies chest pain, Denies shortness of breath Resp Reports system reviewed and no additional complaints, except as docu, Denies shortness of breath, Denies cough GI Reports nausea, Denies abdominal pain Reports system reviewed and no additional complaints, except as docu Musc Reports system reviewed and no additional complaints, except as docu Skin/Breast Reports system reviewed and no additional complaints, except as docu Neuro Yes system reviewed and no additional complaints, except as docu Psych Reports system reviewed and no additional complaints, except as docu Endo Reports fatigue, Reports system reviewed and no additional complaints, except as docu Exam Const General: healthy appearing, comfortable, no acute distress Orientation: alert HENMS Head: normal to inspection, atraumatic, normocephalic Ears: external ears normal, hearing grossly normal bilaterally Nose: nares normal, external nose normal Mouth: oral mucosae normal Teeth and gingiva: dentition normal Eyes General: appearance normal, both eyes and all related structures Neck Neck: no lymphadenopathy, supple, normal visual inspection Thyroid: thyroid normal Chest Chest palpation AND inspection: normal inspection of the chest Breast inspection: normal inspection of the breasts, normal inspection of the axillae Breast palpation: normal palpation of the breasts, normal palpation of the axillae Resp Effort AND Inspection: normal respiratory effort GI Inspection: normal to inspection Palpation: soft, no hepatosplenomegaly General: bladder normal to palpation External Female Exam: normal external appearance, normal appearance of the urethra Urethra: normal appearance of the urethra Speculum Exam - Vagina: normal appearance of the vagina, normal vaginal discharge Speculum Exam - Cervix: normal appearance of the cervix Bimanual Exam- Vagina AND Uterus: bladder normal to palpation, normal bimanual exam, uterus non-tender, other Bimanual Exam- Adnexa, other: adnexae non-tender Skin General: no rashes or lesions noted Neuro Motor: muscle tone normal throughout, no movement abnormalities noted Extrem General: normal to inspection, full ROM Assessment AND Plan Problems 1. Supervision of high risk in first trimester O09.91 TITO 07/15/18 PC Melva boyfriend Jered 2. History of delivery, currently O plan progesterone injection Plan Patient oriented to practice and discussed care expectations and screenings. ACOG book offered to patient. labs and 19-20 week anatomy ultrasound ordered. see problem list details for plan information. Genetic screening offered to patient and patient chose: discussed and will consider Orders Orders: Supplemental Info ACOG book given and patient encouraged to read about nutrition, exercise, weight gain, and food avoidance in . Coding Level of Care Code OB Routine Diagnoses Supervision of high risk in first trimester O Trimester: first trimester History of delivery, currently O.12/08/17 0624 <Electronically signed by Mily Cano MD> Date Mily Cano MD Cosigner Signature: Date (if applicable) CC: CT/NG [facility] BY PCR Collected: 12/03/2017 Status: F Source: FAWN 5:29 PM [facility] REPOSITORY TYPE CODE TESTS RESULT OUT OF RANGE REFERENCE UNITS LAB L8200.2100 Negative Normal Chlam Negative Trac PCR LAB L8200.2200 Negative Normal NG by Negative PCR Performed By: #### L8200.1999, M100.0650 #### [facility] [address] [place], [address] Observed: 12/03/2017 Status: F Source: FAWN CULTURE, URINE 5:29 PM [facility] REPOSITORY CYTOLOGY INFORMATION: - CLINICAL INFORMATION: - DATE LMP/MENOPAUSE: LMP 10/01/17 - COLLECTION VIAL: Thin Prep Vial - TOBACCO DRYING 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 ORGANISM 1: GPC Poss Enterococcus sp Girard Count <1000 Performed By: #### L8200.1999, M100.0650 #### [facility] [address] [place], [address] PAP I-G W/RFX Collected: 12/03/2017 Status: F Source: FAWN HRHPV-APTIMA 5:29 PM [facility] REPOSITORY Order Comment: Specimen Comment: No. of containers..01 ThinPrep Vial TYPE CODE TESTS RESULT OUT OF RANGE REFERENCE UNITS LAB L7400.0800 . Normal DIAGN Comment Result Comment: NEGATIVE FOR INTRAEPITHELIAL LESION AND MALIGNANCY. LAB L7400.0900 . Normal ADEQ Comment Result Comment: Satisfactory for evaluation. Endocervical and/or squamous metaplastic cells (endocervical component) are present. LAB L7400.1400 . Normal PERFORM Comment Result Comment: Elizabeth Renee, Information Technology Administrator (ASCP) LAB L7400.2575 . Normal TEST METHOD Comment Result Comment: This liquid based ThinPrep(R) pap test was screened with the use of an image guided system. LAB L7400.2600 . Normal . COMM LAB L7400.2700 . Normal PAPSMR Comment Result Comment: The Pap smear is a screening test designed to aid in the detection of premalignant and malignant conditions of the uterine cervix. It is not a diagnostic procedure and should not be used as the sole means of detecting cervical cancer. Both false-positive and false-negative reports do occur. LAB L7400.2800 . Normal HPV RFLX Comment Result Comment: The HPV DNA reflex criteria were not met with this specimen result therefore, no HPV testing was performed. Performed at: - [address] [id number] Cannery Tender Engineer: Angeli Lo MD, Phone: [phone] Performed By: #### L7400.0353 #### [facility] (refer to report for specific site) refer to report for address and phone number DIPSTICK Collected: 11/26/2017 Status: F Source: [facility] 9:08 AM [facility] REPOSITORY Order Comment: [place]: [facility] [place] TYPE CODE TESTS RESULT OUT OF RANGE REFERENCE UNITS LAB L600.45997 Normal POC COLOR Result Comment: ORANGE LAB L600.52452 CLEAR POC Normal APPEARANCE CLOUDY LAB L600.58993 1.005-1.030 POC SPEC Normal GRAV 1.010 LAB L600.66527 5-6 POC UA Normal PH 5.0 LAB L600.07471 NORMAL POC UA Normal GLUCOSE NORMAL LAB L600.49364 NEGATIVE MG/DL POC Normal KETONE NEGATIVE LAB L600.53044 NEGATIVE MG/DL POC Normal BILIRUBIN TNP Result Comment: UNABLE TO REPORT SOME PARAMETERS OF URINALYSIS DUE TO COLOR INTERFERENCE. LAB L600.30468 NORMAL MG/DL Normal POC UROBIL TNP Result Comment: UNABLE TO REPORT SOME PARAMETERS OF URINALYSIS DUE TO COLOR INTERFERENCE. LAB L600.51485 NEGATIVE MG/DL Normal POC PROTEIN TNP Result Comment: UNABLE TO REPORT SOME PARAMETERS OF URINALYSIS DUE TO COLOR INTERFERENCE. LAB L600.45083 NEGATIVE Normal POC BLOOD 250 LAB L600.44793 NEGATIVE Normal POC NITRITE TNP Result Comment: UNABLE TO REPORT SOME PARAMETERS OF URINALYSIS DUE TO COLOR INTERFERENCE. LAB L600.19022 NEGATIVE CUAUHTEMOC/uL Normal POC LEUK EST 500 Observed: 11/26/2017 Status: F Source: [facility] URINE CULTURE 9:08 AM [facility] REPOSITORY Order Comment: [place]: [facility] [place] ORGANISM 1: ESCHERICHIA COLI COLONY COUNT >100,000 ESCHERICHIA COLI: REACTION AMIKACIN <16 S AMPICILLIN >16 R CEFAZOLIN >16 R CEFEPIME <4 S CEFOTAXIME 8 S CEFTAZIDIME 8 S CEFUROXIME >16 R CIPROFLOXACIN >4 R GENTAMICIN >8 R IMIPENEM <1 S ERTAPENEM <2 S NITROFURANTOIN <32 S PIPERACILLIN/TAZOBACTAM <16 S TOBRAMYCIN 8 I TRIMETH/SULFA >2/38 R LEVOFLOXACIN >4 R MEROPENEM <1 S MSC Observed: 11/26/2017 Status: UNK Source: [facility] 8:40 AM [facility] REPOSITORY DATE OF SERVICE: 11/26/2017 CHIEF COMPLAINT: Urinary pain and frequency. HISTORY OF PRESENT ILLNESS: This 22-year-old presents today to [facility] with the above chief complaint. She has had symptoms for about 2 days. This feels very similar to when she has had urinary tract infections in the past. She does get frequent UTIs she states, and her last one was about a month ago. She had Keflex at her last UTI and it worked well. She is 8 weeks , has not seen her OB yet. She describes the left lower quadrant pain as just a dull aching pain, but she normally gets that when she has a UTI. She is not having any vaginal concerns, bleeding, discharge, etc. Denies any lightheadedness, dizziness, or weakness. Denies any back pain, nausea, or vomiting. CURRENT MEDICATIONS: Includes vitamin. ALLERGIES: No known drug allergies. PAST MEDICAL HISTORY: Significant for current and history of miscarriage in August. FAMILY HISTORY: Noncontributory. SOCIAL HISTORY: Nondrinker, nonsmoker. PHYSICAL EXAMINATION: General: Very pleasant 22-year-old in no acute distress. Well-nourished, well-hydrated. Vital signs: Blood pressure 122/80, pulse 98, respiratory rate 16, temperature 98.6, pulse oximetry 98%. HEENT: Mucous membranes pink and moist. Heart: Regular S1, S2. Lungs: Clear. Abdomen: Soft with minimal tenderness in the suprapubic region, as well as the left lower quadrant, but there is no rebound, guarding, rigidity, and no fullness or masses appreciated. No costovertebral angle tenderness. We will get a urinalysis on her here today, although she has been on AZO and it will skew that. I have advised her we will send her urine for culture then since she was on AZO. IMPRESSION: 1. Urinary tract infection. 2. . PLAN: The patient advised that if she is having any worsening symptoms, she needs to go to the emergency room, specifically if she has any vaginal issues with discharge or bleeding. She verbalizes understanding. We will start her on Keflex 500 mg b.i.d. for 7 days. She is to increase fluids, humidify air. She can take Tylenol if needed and should have close followup with OB/primary care, and once again advised to go to the emergency room for any worsening symptoms. She verbalized understanding. [facility] PATIENT NAME: DANI HILL [address] [facility] [address] MEDICAL REC #: [id number] [place] [address] [facility] REPORT [facility] PHYSICIAN Darren Guzmán /[id number] SSI File#: [id number] Verified/Reviewed by 12/01/17 Ivan MAN [facility] PATIENT NAME: DANI HILL [address] [facility] [address] MEDICAL REC #: [id number] [place] [address] [facility] REPORT [facility] PHYSICIAN Observed: 09/06/2017 Status: F Source: [facility] 8:01 PM [facility] REPOSITORY . MICRO - Microbiology PROCEDURE: Culture Beta Strep Only [*1] SOURCE: Throat BODY SITE: COLLECTED DATE/TIME: 09/06/2017 20:01 EST RECEIVED DATE/TIME: 09/06/2017 22:15 EST START DATE/TIME: 09/06/2017 22:15 EST FREE TEXT SOURCE: FINAL REPORTS Final Report [] Verified Date/Time/Personnel: 09/08/2017 09:01 EST No Beta Strep isolated at 48hrs. Sensitivity testing not indicated. PRELIMINARY REPORTS Preliminary Report [] Verified Date/Time/Personnel: 09/07/2017 11:01 EST No beta Strep isolated at 24 hours. Performing Locations *1: This test was performed at: [facility], [address] [place] [address], [id number] , [facility] Performed By: #### BSO #### [address] [address] Observed: 09/06/2017 Status: F Source: [facility] 7:59 PM [facility] REPOSITORY . MICRO - Microbiology PROCEDURE: Urine Culture [*1] SOURCE: Urine, Clean Catch BODY SITE: COLLECTED DATE/TIME: 09/06/2017 19:59 EST RECEIVED DATE/TIME: 09/06/2017 22:14 EST START DATE/TIME: 09/06/2017 22:14 EST FREE TEXT SOURCE: FINAL REPORTS Final Report [] Verified Date/Time/Personnel: 09/08/2017 07:59 EST >100,000 organisms per mL Escherichia coli PRELIMINARY REPORTS Preliminary Report [] Verified Date/Time/Personnel: 09/07/2017 10:51 EST >100,000 organisms per mL Gram Negative Rods Final identification and NUNU to follow. SUSCEPTIBILITY RESULTS Escherichia coli Antibiotic NUNU Dilutn NUNU Interp Ampicillin >16 Resistant Cefazolin >16 Resistant Cefotaxime 8 Susceptible Cefuroxime >16 Resistant Ciprofloxacin >4 Resistant Gentamicin >8 Resistant Levofloxacin >4 Resistant Meropenem <=1 Susceptible Nitrofurantoin <=32 Susceptible Piperacillin/ <=16 Susceptible Tazobactam Tobramycin >8 Resistant Trimethoprim/ >2/38 Resistant Sulfa Performing Locations *1: This test was performed at: [facility], [address] [place] [address], [address] [place] [address] Performed By: #### CUR #### [place] [address] FINAL SURGICAL Observed: 08/18/2017 Status: F Source: [facility] PATHOLOGY REPORT 2:52 AM [facility] REPOSITORY . Pathology Reports Accession: Collected Date/Time: Received Date/Time: Pathologist: [id number] 08/18/2017 02:52 EST 08/18/2017 14:05 EST MD REAGAN VALENCIA Final Surgical Pathology Report DIAGNOSIS: UTERINE CONTENTS -- FRAGMENTS OF BLOOD CLOT, DECIDUALIZED TISSUE AND CHORIONIC VILLI (PRODUCTS OF CONCEPTION) IDENTIFIED. COMMENT: [facility] - D# [id number] CLINICAL INFORMATION: Procedure: suction dilation and curettage Preoperative diagnosis: incomplete spontaneous missed Postoperative diagnosis: incomplete spontaneous missed SPECIMEN: A PRODUCTS OF CONCEPTION GROSS DESCRIPTION: _Received in formalin labeled products of conception is a 12 x 11 x 3.5 cm aggregate of dark red and borden membranous and papilliferous tissue. No parts or vesicles are grossly identified. RS -8 Dictated by ANGEL NESS ([facility]) MICROSCOPIC DESCRIPTION: Slides reviewed. Electronically Signed by Pathology Report verified by [facility] Electronically signed by REAGAN VALENCIA MD Sign out Date: 08/21/2017 11:48 Performing Lab: [facility], [address] [place] [address] Performed By: #### SPFR #### [place] [address] HH Collected: 08/17/2017 Status: F Source: [facility] 10:11 PM [facility] REPOSITORY TYPE CODE TESTS RESULT OUT OF RANGE REFERENCE UNITS LAB HGB(LOINC) 12.0-16.0 G/dL Low Hgb 11.1 LAB HCT(LOINC) 37.0-47.0 % Low Hct 32.3 Performed By: #### HH #### [place] [address] [place], [place] [address] HCGQ Collected: 08/17/2017 Status: F Source: [facility] 9:43 PM [facility] REPOSITORY TYPE CODE TESTS RESULT OUT OF REFERENCE UNITS RANGE LAB HCGQ(LOINC mIU/mL ) hCG, quantitative 286750.0 Result Comment: Above normal(expected)range Quantitative hCG reference ranges: 3 Weeks 5-12 mIU/mL 4 Weeks 10-708 mIU/mL 5 Weeks 217-8,245 mIU/mL 6 Weeks 152-32,177 mIU/mL 7 Weeks 4,059-153,767 mIU/mL 8 Weeks 31,366-149,094 mIU/mL 9 Weeks 59,109-135,901 mIU/mL 10 Weeks 44,186-170,409 mIU/mL 12 Weeks 27,107-201,615 mIU/mL 14 Weeks 24,302-93,646 mIU/mL 16 Weeks 8,905-55,332 mIU/mL Performed By: #### HCGQ #### [place] [address] [place], [place] [address] CBC Collected: 08/13/2017 Status: F Source: [facility] 9:59 AM [facility] REPOSITORY TYPE CODE TESTS RESULT OUT OF REFERENCE UNITS RANGE LAB WBC(LOINC) 4.60-10.80 10 3/mcL WBC 5.30 LAB RBCCT(LOINC 4.20-5.40 10 6/mcL ) RBC 4.28 LAB HGB(LOINC) 12.0-16.0 G/dL Hgb 12.3 LAB HCT(LOINC) 37.0-47.0 % Low Hct 36.0 LAB MCV(LOINC) 80.0-94.0 fL MCV 84.0 LAB MCH(LOINC) 27.0-31.2 pg MCH 28.7 LAB MCHC(LOINC) 33.0-37.0 G/dL MCHC 34.2 LAB RDW(LOINC) 11.5-14.5 % High RDW 14.7 LAB PLT(LOINC) 130-400 10 3/mcL Platelet 267 LAB MPV(LOINC) 7.4-10.4 fL MPV 8.2 Performed By: #### CBC, ADIFF, ANEU, ABOG, HCGQ #### [address] [address] .AUTO DIFF Collected: 08/13/2017 Status: F Source: [facility] 9:59 AM [facility] REPOSITORY TYPE CODE TESTS RESULT OUT OF REFERENCE UNITS RANGE LAB FAYE(LOINC) 37.0-80.0 % Neutrophil % 63.3 LAB LYM(LOINC) 10.0-50.0 % Lymphocyte % 28.2 LAB MON(LOINC) 1.7-13.0 % Monocyte % 6.9 LAB EO(LOINC) 0.0-7.0 % Eosinophil % 1.3 LAB BAS(LOINC) 0.0-2.5 % Basophil % 0.3 LAB ABLYM(LOIN 0.77-3.85 10 3/mcL C) Lymphocyte, 1.50 Absolute LAB STEFFANY(LOINC 0.15-1.00 10 3/mcL ) Monocyte, 0.40 Absolute LAB AEOS(LOINC 0.00-0.40 10 3/mcL ) Eosinophil, 0.10 Absolute LAB ABAS(LOINC 0.00-0.19 10 3/mcL ) Basophil, 0.00 Absolute Performed By: #### CBC, ADIFF, ANEU, ABOG, HCGQ #### [address] [address] .NEUABS Collected: 08/13/2017 Status: F Source: [facility] 9:59 AM [facility] REPOSITORY TYPE CODE TESTS RESULT OUT OF REFERENCE UNITS RANGE LAB ANEU(LOINC) 2.85-6.16 10 3/mcL Neutrophil, 3.40 Absolute Performed By: #### CBC, ADIFF, ANEU, ABOG, HCGQ #### Laura [address] [place], [place] [address] GEL ABO Collected: 08/13/2017 Status: F Source: [facility] 9:59 AM [facility] REPOSITORY TYPE CODE TESTS RESULT OUT OF RANGE REFERENCE UNITS LAB ABORH(LOINC ) Unknown ABO/Rh B POS Interp Performed By: #### CBC, ADIFF, ANEU, ABOG, HCGQ #### [place] [address] [place], [place] [address] HCGQ Collected: 08/13/2017 Status: F Source: [facility] 9:59 AM [facility] REPOSITORY TYPE CODE TESTS RESULT OUT OF REFERENCE UNITS RANGE LAB HCGQ(LOINC mIU/mL ) hCG, quantitative 403935.0 Result Comment: Above normal(expected)range Quantitative hCG reference ranges: 3 Weeks 5-12 mIU/mL 4 Weeks 10-708 mIU/mL 5 Weeks 217-8,245 mIU/mL 6 Weeks 152-32,177 mIU/mL 7 Weeks 4,059-153,767 mIU/mL 8 Weeks 31,366-149,094 mIU/mL 9 Weeks 59,109-135,901 mIU/mL 10 Weeks 44,186-170,409 mIU/mL 12 Weeks 27,107-201,615 mIU/mL 14 Weeks 24,302-93,646 mIU/mL 16 Weeks 8,905-55,332 mIU/mL Performed By: #### CBC, ADIFF, ANEU, ABOG, HCGQ #### Laura [address] [place], [place] [address] ALLERGIES ALLERGIES DATE TYPE / CODE NAME / CODE REACTION SEVERITY SOURCE 07/08/2018 Drug No Known Unknown [facility] Allergy/4160 Allergies/F00 [facility] [address](SNOMED [id number](RXNOR Repository CT) M) ENCOUNTERS ENCOUNTERS ADMIT/DISCHARGE ACCOUNT NUMBER ADMITTING ENCOUNTER LOCATION SOURCE CLASS 07/08/2018/07/10/20 [id number] [place], Inpatient [place] 18 Mily Encounter [facility] ding:WPRoom: Repository [id number]: 1 07/08/2018 [id number] [place], Ambulatory BMSBuilding: [place] BMS.CF.[facility] Repository 07/08/2018 [id number] [place], Ambulatory BMSBuilding: [place] BMS.CF.[facility] Repository 07/08/2018 [id number] [place], Ambulatory BMSBuilding: [place] BMS.CF.[facility] Repository 07/08/2018/07/08/20 [id number] Ambulatory BMSBuilding: [place] 18 BMS.[facility] Repository 07/03/2018 [id number] Ambulatory BMSBuilding: [place] BMS..[facility] Repository 07/03/2018/07/03/20 [id number] Ambulatory [address] ding:WPOUTRo Repository om: WP012 06/30/2018 [id number] Ambulatory [facility] ding:PAVLAB Repository 06/30/2018/06/30/20 [id number] Ambulatory BMSBuilding: [place] 18 BMS.[facility] Repository 06/23/2018/06/23/20 [id number] Ambulatory BMSBuilding: [place] 18 BMS.[facility] Repository 06/16/2018 [id number] Ambulatory [facility] ding:LAB Repository 06/16/2018/06/16/20 [id number] Ambulatory BMSBuilding: [place] 18 BMS.[facility] Repository 06/09/2018/06/09/20 [id number] Ambulatory BMSBuilding: [place] 18 BMS.[facility] Repository 06/02/2018/06/02/20 [id number] Ambulatory BMSBuilding: [place] 18 BMS.[facility] Repository 05/26/2018/05/26/20 [id number] Ambulatory BMSBuilding: [place] 18 BMS.[facility] Repository 05/24/2018/05/24/20 [id number] Ambulatory BMSBuilding: [place] 18 BMS.[facility] Repository 05/19/2018/05/19/20 [id number] Ambulatory BMSBuilding: [place] 18 BMS.[facility] Repository 05/12/2018 [id number] Ambulatory [facility] ding:US Repository 05/12/2018/05/12/20 [id number] Ambulatory BMSBuilding: [place] 18 BMS.[facility] Repository 05/10/2018/05/11/20 [id number] [facility] [place] 18 [place] [facility] ding:WPRoom: Repository [id number]: 1 05/10/2018 [id number] [place], Ambulatory BMSBuilding: [place] BMS.CF.[facility] Repository 05/10/2018 [id number] Ambulatory BMSBuilding: [place] BMS.CF.[facility] Repository 05/10/2018 [id number] Ambulatory [facility] ding:CT Repository 05/10/2018/05/10/20 [id number] Ambulatory BMSBuilding: [place] 18 BMS.[facility] Repository 05/05/2018/05/05/20 [id number] Ambulatory BMSBuilding: [place] 18 BMS.[facility] Repository 04/28/2018 [id number] Ambulatory [facility] ding:PAVLAB Repository 04/28/2018/04/28/20 [id number] Ambulatory BMSBuilding: [place] 18 BMS.[facility] Repository 04/19/2018/04/19/20 [id number] Ambulatory BMSBuilding: [place] 18 BMS.[facility] Repository 04/12/2018/04/12/20 [id number] Ambulatory BMSBuilding: [place] 18 BMS.[facility] Repository 04/05/2018/04/05/20 [id number] Ambulatory BMSBuilding: [place] 18 BMS.[facility] Repository 04/01/2018/04/01/20 [id number] Ambulatory BMSBuilding: [place] 18 BMS.[facility] Repository 03/29/2018/03/29/20 [id number] Ambulatory BMSBuilding: [place] 18 BMS.[facility] Repository 03/26/2018 [id number] Ambulatory [facility] ding:OPUS Repository 03/22/2018/03/22/20 [id number] Ambulatory BMSBuilding: [place] 18 BMS.[facility] Repository 03/16/2018/03/16/20 [id number] Ambulatory BMSBuilding: [place] 18 BMS.[facility] Repository 03/08/2018/03/08/20 [id number] Ambulatory BMSBuilding: [place] 18 BMS.[facility] Repository 03/04/2018/03/04/20 [id number] Ambulatory BMSBuilding: [place] 18 BMS.[facility] Repository 03/01/2018/03/01/20 [id number] Ambulatory BMSBuilding: [place] 18 BMS.[facility] Repository 02/24/2018 [id number] Ambulatory [facility] ding:OPUS Repository 02/22/2018/02/23/20 [id number] Ambulatory BMSBuilding: [place] 18 BMS.[facility] Repository 02/15/2018/02/16/20 [id number] Ambulatory BMSBuilding: [place] 18 BMS.[facility] Repository 02/08/2018/02/09/20 [id number] Ambulatory BMSBuilding: [place] 18 BMS.[facility] Repository 02/04/2018/02/05/20 [id number] Ambulatory BMSBuilding: [place] 18 BMS.[facility] Repository 02/01/2018/02/02/20 [id number] Ambulatory BMSBuilding: [place] 18 BMS.[facility] Repository 01/07/2018 [id number] Ambulatory [facility] ding:POLAB3 Repository 01/07/2018/01/08/20 [id number] Ambulatory BMSBuilding: [place] 18 BMS.[facility] Repository 12/03/2017 [id number] Ambulatory [facility] ding:LABSPEC Repository 12/03/2017/12/04/19 [id number] Ambulatory BMSBuilding: [place] 18 BMS.[facility] Repository 11/26/2017 [id number] Ambulatory [facility] CenterBuildi Repository ng:FANNY 09/06/2017/09/11/19 [id number] Ambulatory LAURA [place] 18 [facility] Repository 09/06/2017/09/06/19 [id number] Ambulatory ABuilding:UC [place] 18 [facility] Repository 08/17/2017/08/18/19 [id number] PERRY DO, Ambulatory BBuilding:MS [place] 18 FRED Foster URRoom: Health [address]Bed: A [facility] Repository 08/13/2017/08/13/19 [id number] Emergency BBuilding:ER [place] 18 [facility] Repository PAYERS PAYERS ENCOUNTER GUARANTOR PAYER SUBSCRIBER SOURCE 07/08/2018 DANI Landin Primary DANI Landin [place] [id number] [facility] [id number] Hospital [place] [address]Hdz: PLANPolicy Number: Repository [id number] (HP) Date:4280-06-75EF [address] [place] [address]SA: 07/08/2018 Secondary NOT GIVENUNK [place] Insurance:SELF PAY [facility] Number: Effective Repository Date:2018-07-08 07/08/2018 DANI Landin Primary DANI Landin [place] [id number] Insurance:[facility]: [facility] [id number] Hospital [place] [id number]: PLANPolicy Number: Repository [id number] (HP) Date:9104-60-33UL [address] [address]TC: 07/08/2018 Secondary NOT GIVENUNK [place] Insurance:SELF PAY [facility] Number: Effective Repository Date:2018-07-08 07/08/2018 DANI Landin Primary DANI Landin [place] [id number] Insurance:[facility]: [facility] [id number] Hospital [place] [id number]: PLANPolicy Number: Repository [id number] (HP) Date:0466-42-56AG [address] [place] [address] 70[address]LS: 07/08/2018 Secondary NOT GIVENUNK [place] Insurance:SELF PAY [facility] Number: Effective Repository Date:2018-07-08 07/08/2018 DANI R Primary DANI R [place] [id number] Insurance:BUCKEYE BEATTYDOB: [facility] [id number] [place] [address]Wsf: PLANPolicy Number: Repository [id number] (HP) Date:3890-64-06VB [address] [place] [address] 56[address]ZP: 07/08/2018 Secondary NOT GIVENUNK [place] Insurance:SELF PAY [facility] Number: Effective Repository Date:2018-07-08 07/08/2018 DANI R Primary DANI R [place] [id number] Insurance:BUCKEYE BEATTYDOB: [facility] [id number] Hospital [place] [id number]: PLANPolicy Number: Repository [id number] (HP) Date:7043-37-49ZU [address] [place] [address] 62006LQ: 07/08/2018 Secondary NOT GIVENUNK [place] Insurance:SELF PAY [facility] Number: Effective Repository Date:2018-05-17 07/03/2018 DANI Landin Primary DANI R [place] [id number] [address] Insurance:BUCKEYE BEATTYDOB: [facility] [id number] Hospital [place] [address]Yzy: PLANPolicy Number: Repository [id number] (HP) Date:5795-44-68UG [address] [place] [address]LN: 07/03/2018 Secondary NOT GIVENUNK [place] Insurance:SELF PAY [facility] Number: Effective Repository Date:2018-07-03 07/03/2018 DANI R Primary DANI R [place] [id number] [address] Insurance:BUCKEYE BEATTYDOB: [facility] [id number] Hospital [place] [id number]: PLANPolicy Number: Repository [id number] (HP) Date:3713-12-24SA [address] [place] [address] 249[address]KA: 07/03/2018 Secondary NOT G[place] Insurance:SELF PAY [facility] Number: Effective Repository Date:2018-07-03 06/30/2018 DANI R Primary DANI R [place] [id number] [address] Insurance:BUCKEYE BEATTYDOB: [facility] [id number] Hospital [place] [address]Kvn: PLANPolicy Number: Repository [id number] (HP) Date:3109-69-32MN [address] [place] [address] 57[address]FC: 06/30/2018 Secondary NOT GIVENUNK [place] Insurance:SELF PAY [facility] Number: Effective Repository Date:2018-06-30 06/30/2018 DANI R Primary DANI R [place] [id number] [address] Insurance:BUCKSHERIEE SINANB: [facility] [id number] [place] [id number]: PLANPolicy Number: Repository [id number] (HP) Date:2894-19-87FJ [address] [place] [address] 655[address]IB: 06/30/2018 Secondary NOT GIVENUNK [place] Insurance:SELF PAY [facility] Number: Effective Repository Date:2018-05-17 06/23/2018 DANI R Primary DANI R [place] [id number] [address] Insurance:BUCKEYE BEATTYDOB: [facility] [id number] Hospital [place] [address]Xdy: PLANPolicy Number: Repository [id number] (HP) Date:3685-09-24HP [address] [place] [address]OA: 06/23/2018 Secondary NOT GIVENUNK [place] Insurance:SELF PAY [facility] Number: Effective Repository Date:2018-05-17 06/16/2018 DANI R Primary DANI R [place] [id number] [address] Insurance:BUCKEYE BEATTYDOB: [facility] [id number] [place] [address]Thv: PLANPolicy Number: Repository [id number] (HP) Date:7022-82-90UB [address] [place] [address] 217[address]WN: 06/16/2018 Secondary NOT GIVENUNK [place] Insurance:SELF PAY [facility] Number: Effective Repository Date:2018-06-16 06/16/2018 DANI R Primary DANI R [place] [id number] [address] Insurance:BUCKEYE BEATTYDOB: [facility] [id number] Hospital [place] [address]Hvq: PLANPolicy Number: Repository [id number] (HP) Date:6698-71-66BQ [address] [place] [address] 78[address]CA: 06/16/2018 Secondary NOT GIVENUNK [place] Insurance:SELF PAY [facility] Number: Effective Repository Date:2018-05-17 06/09/2018 DANI Landin Primary DANI R [place] [id number] [address] Insurance:BUCKEYE BEATTYDOB: [facility] [id number] Hospital [place] [id number]: PLANPolicy Number: Repository [id number] (HP) Date:9025-76-78PX [address] [place] [address] 86[address]HV: 06/09/2018 Secondary NOT GIVENUNK [place] Insurance:SELF PAY [facility] Number: Effective Repository Date:2018-05-17 06/02/2018 DANI R Primary DANI R [place] [id number] [address] Insurance:BUCKEYE BEATTYDOB: [facility] [id number] [place] [id number]: PLANPolicy Number: Repository [id number] (HP) Date:3031-03-76IP [address] [place] [address]QB: 06/02/2018 Secondary NOT GIVENUNK [place] Insurance:SELF PAY [facility] Number: Effective Repository Date:2018-05-17 05/26/2018 DANI R Primary DANI R [place] [id number] [address] Insurance:BUCKEYE BEATTYDOB: [facility] [id number] Hospital [place] [address]Xqe: PLANPolicy Number: Repository [id number] (HP) Date:5945-24-14CR [address] [place] [address] 75[address]WR: 05/26/2018 Secondary NOT GIVENUNK [place] Insurance:SELF PAY [facility] Number: Effective Repository Date:2018-05-17 05/24/2018 DANI R Primary DANI R [place] [id number] [address] Insurance:BUCKEYE BEATCAITIEDOB: [facility] [id number] Hospital [place] [id number]: PLANPolicy Number: Repository [id number] (HP) Date:8955-01-97XN [address] [place] [address]QA: 05/24/2018 Secondary NOT GIVENUNK [place] Insurance:SELF PAY [facility] Number: Effective Repository Date:2018-05-24 05/19/2018 DANI R Primary DANI R [place] [id number] [address] Insurance:BUCKEYE BEATTYDOB: [facility] [id number] [place] [address]Pbl: PLANPolicy Number: Repository [id number] (HP) Date:3769-36-87VP [address] [place] [address] 425[address]UO: 05/19/2018 Secondary NOT GIVENUNK [place] Insurance:SELF PAY [facility] Number: Effective Repository Date:2018-05-17 05/12/2018 DANI R Primary ADINA BEATTYDOB: [place] [id number] [address] Insurance:ANTHEMPolicy [id number], Number: [facility] [address]Bjf: [id number] Repository Date:3870-07-71AQ [address] () [address] [place] [address]BR: 05/12/2018 Secondary DANI R [place] Insurance:BUCKLISA MENONB: [facility] [id number] Hospital PLANPolicy Number: Repository [id number] Date:1169-93-69TU [address] [place] [address]NN: 05/12/2018 Tertiary NOT GIVENUNK [place] Insurance:SELF PAY [facility] Number: Effective Repository Date:2018-05-11 05/12/2018 DANI R Primary ADINA LEONARDOTYDOB: [place] [id number] [address] Insurance:ANTHEMPolicy [id number] Children's Hospital, Number: [facility] [address]Txm: [id number] Repository Date:6893-36-56NP [address] () [address], [place] [address]XD: 05/12/2018 Secondary DANI R [place] Insurance:BUCKSHERIEE LIZDOB: [facility] [id number] Hospital PLANPolicy Number: Repository [id number] Date:7127-57-00OO [address] [place] [address]CL: 05/12/2018 Tertiary NOT GIVENUNK [place] Insurance:SELF PAY [facility] Number: Effective Repository Date:2018-05-12 05/10/2018 DANI R Primary ADINA BEATTYDOB: [place] [id number] [address] Insurance:ANTHEMPolicy [id number] Children's Hospital, Number: [facility] [place] [address]Fdn: [id number] Repository Date:3388-24-73OW [address] () [id number] [place] [address]OI: 05/10/2018 Secondary DANI R [place] Insurance:BUCKEYE BEATTYDOB: [facility] [id number] Hospital PLANPolicy Number: Repository [id number] Date:1124-01-71KO [address] [place] [address]IC: 05/10/2018 Tertiary NOT GIVENUNK [place] Insurance:SELF PAY [facility] Number: Effective Repository Date:2018-05-10 05/10/2018 DANI R Primary ADINA BEATTYDOB: [place] [id number] [address] Insurance:ANTHEMPolicy [id number] Children's Hospital, Number: [place] [address]Xxl: [id number] Repository Date:9250-35-34CX [address] () [address], [place] [address]JQ: 05/10/2018 Secondary DANI R [place] Insurance:BUCKEYE JORDENTYDOB: [facility] [id number] Hospital PLANPolicy Number: Repository [id number] Date:8566-99-29WB [address] [place] [address] 98[address]OE: 05/10/2018 Tertiary NOT GIVENUNK [place] Insurance:SELF PAY [facility] Number: Effective Repository Date:2018-05-10 05/10/2018 DANI R Primary ADINA BEATTYDOB: [place] [id number] [address] Insurance:ANTHEMPolicy [id number] Children's Hospital, Number: [place] [id number]: [id number] Repository Date:2358-36-96CX [address] () [address]MWQ[place]QI, [place] [address]EY: 05/10/2018 Secondary DANI R [place] Insurance:JOSE MENONB: [facility] [id number] Hospital PLANPolicy Number: Repository [id number] Date:4018-81-99HB [address] [place] [address] 46[address]MS: 05/10/2018 Tertiary NOT GIVENUNK [place] Insurance:SELF PAY [facility] Number: Effective Repository Date:2018-05-10 05/10/2018 DANI R Primary ADINA BEATTYDOB: [place] [id number] [address] Insurance:ANTHEMPolicy [id number] Children's Hospital, Number: [facility] [address]Rbk: [id number] Repository Date:1816-97-48QB [address] () [address]SZGRTGC, [place] [address]MB: 05/10/2018 Secondary DANI R [place] Insurance:JOSE MENONB: [facility] [id number] Hospital PLANPolicy Number: Repository [id number] Date:2782-92-17WG [address] [place] [address] 227[address]RI: 05/10/2018 Tertiary NOT GIVENUNK [place] Insurance:SELF PAY [facility] Number: Effective Repository Date:2018-05-10 05/10/2018 DANI R Primary ADINA BEATTYDOB: [place] [id number] [address] Insurance:ANTHEMPolicy [id number] Children's Hospital, Number: [facility] [place] [address]Xjt: [id number] Repository Date:5577-34-94UW [address] () [address]OWTHVSC, [place] [address]WW: 05/10/2018 Secondary DANI R [place] Insurance:SHANIAE LIZDOB: [facility] [id number] Hospital PLANPolicy Number: Repository [id number] Date:3945-68-10PK [address] [place] [address]UM: 05/10/2018 Tertiary NOT GIVENUNK [place] Insurance:SELF PAY [facility] Number: Effective Repository Date:2018-05-10 05/05/2018 DANI R Primary ADINA BEATTYDOB: [place] [id number] [address] Insurance:ANTHEMPolicy [id number] Children's Hospital, Number: [facility] [address]Lgs: [id number] Repository Date:4724-63-66AY [address] () 007268RZUQXRE [place] [address]DA: 05/05/2018 Secondary DANI R [place] Insurance:BUCKEYE BEATTYDOB: [facility] [id number] Hospital PLANPolicy Number: Repository [id number] Date:3313-06-16HM [address] [place] [address]55[address]VD: 05/05/2018 Tertiary NOT GIVENUNK [place] Insurance:SELF PAY [facility] Number: Effective Repository Date:2018-05-05 04/28/2018 DANI R Primary ADINA BEATTYDOB: [place] [id number] Insurance:ANTHEMPolicy [id number] Number[facility] [id number]: [id number] Repository Date:4547-03-61PC [address] () [id number] [place] [id number]: 04/28/2018 Secondary DANI R [place] Insurance:BUCKEYE BEATTYDOB: [facility] [id number] Hospital PLANPolicy Number: Repository [id number] Date:2001-76-42ZJ [address] [place] [address] 06769HK: 04/28/2018 Tertiary NOT GIVENUNK [place] Insurance:SELF PAY [facility] Number: Effective Repository Date:2018-04-28 04/28/2018 DANI R Primary ADINA BEATTYDOB: [place] [id number] [address] Insurance:ANTHEMPolicy [id number] [facility]'s [facility], Number: [facility] [place] [address]Gpb: [id number] Repository Date:4975-61-35VI [address] () 364696DDOHGYK, [place] [address]FC: 04/28/2018 Secondary DANI R [place] Insurance:BUCKEYE BEATTYDOB: [facility] [id number] Hospital PLANPolicy Number: Repository [id number] Date:1366-48-56KS [address] [place] [address] 20810YJ: 04/28/2018 Tertiary NOT GIVENUNK [place] Insurance:SELF PAY [facility] Number: Effective Repository Date:2018-04-28 04/19/2018 DANI R Primary ADINA BEATTYDOB: [place] [id number] [address] Insurance:ANTHEMPolicy [id number] Children's Hospital, Number: [facility] [place] [address]Tsc: [id number] Repository Date:3003-63-42JR [address] () [address] [place] [address] 03589JR: 04/19/2018 Secondary DANI R [place] Insurance:BUCKEYE BEATTYDOB: [facility] [id number] Hospital PLANPolicy Number: Repository [id number] Date:5079-06-00NH [address] [place] [address] 95843HT: 04/19/2018 Tertiary NOT GIVENUNK [place] Insurance:SELF PAY [facility] Number: Effective Repository Date:2018-04-19 04/12/2018 DANI R Primary ADINA BEATTYDOB: [place] [id number] [address] Insurance:ANTHEMPolicy [id number] Children's Hospital, Number: [facility] [place] [address]Bhq: [id number] Repository Date:2350-76-36MS [address] () 839845XKQJWAZ, [place] [address]KP: 04/12/2018 Secondary DANI R [place] Insurance:BUCKEYE JORDENTYDOB: [facility] [id number] Hospital PLANPolicy Number: Repository [id number] Date:2414-82-26DJ [address] [place] [address] 03775AT: 04/12/2018 Tertiary NOT GIVENUNK [place] Insurance:SELF PAY [facility] Number: Effective Repository Date:2018-04-12 04/05/2018 DANI R Primary ADINA BEATTYDOB: [place] [id number] [address] Insurance:ANTHEMPolicy [id number] Children's Hospital, Number: [facility] [place] [address]Mhm: [id number] Repository Date:9725-69-49HX [address] () 181285GJJZQWD, [place] [address]BL: 04/05/2018 Secondary DANI R [place] Insurance:BUCKSHERIEE JORDENTYDOB: [facility] [id number] Hospital PLANPolicy Number: Repository [id number] Date:1333-57-42QA [address] [place] [address] 12924UN: 04/05/2018 Tertiary NOT GIVENUNK [place] Insurance:SELF PAY [facility] Number: Effective Repository Date:2018-04-05 04/01/2018 DANI R Primary ADINA BEATTYDOB: [place] [id number] [address] Insurance:ANTHEMPolicy [id number] Children's Hospital, Number: [facility] [address]Gqu: [id number] Repository Date:9968-81-18CE [address] () 547836PZPPIWW, [place] [address]XI: 04/01/2018 Secondary DANI R [place] Insurance:BUCKEYE BEATTYDOB: [facility] [id number] Hospital PLANPolicy Number: Repository [id number] Date:5869-16-45RK [address] [place] [address] 97682VO: 04/01/2018 Tertiary NOT GIVENUNK [place] Insurance:SELF PAY [facility] Number: Effective Repository Date:2018-04-01 03/29/2018 DANI R Primary ADINA BEATTYDOB: [place] [id number] [address] Insurance:ANTHEMPolicy [id number] Children's Hospital, Number: [facility] [address]Pys: [id number] Repository Date:7605-70-03EA [address] () 445129TLORRVE, [place] [address]RZ: 03/29/2018 Secondary DANI R [place] Insurance:BUCKEYE BEATTYDOB: [facility] [id number] Hospital PLANPolicy Number: Repository [id number] Date:2988-85-59BA [address] [place] [address] 673[address]WG: 03/29/2018 Tertiary NOT GIVENUNK [place] Insurance:SELF PAY [facility] Number: Effective Repository Date:2018-03-29 03/26/2018 DANI R Primary ADINA BEATTYDOB: [place] [id number] [address] Insurance:ANTHEMPolicy [id number] Children's Hospital, Number: [facility] [address]Kbn: [id number] Repository Date:3976-86-39QE [address] () 217961VIZGIVT, [place] [address]AR: 03/26/2018 Secondary DANI R [place] Insurance:BUCKEYE BEATTYDOB: [facility] [id number] Hospital PLANPolicy Number: Repository [id number] Date:6573-34-70QY [address] [place] [address] 51168ZU: 03/26/2018 Tertiary NOT GIVENUNK [place] Insurance:SELF PAY [facility] Number: Effective Repository Date:2018-02-26 03/22/2018 DANI R Primary ADINA BEATTYDOB: [place] [id number] [address] Insurance:ANTHEMPolicy [id number] Children's Hospital, Number: [facility] [place] [address]Nhd: [id number] Repository Date:8615-30-24BJ [address] () 320410YSXIIMS, [place] [address]XN: 03/22/2018 Secondary DANI R [place] Insurance:JOSE MENONB: [facility] [id number] Hospital PLANPolicy Number: Repository [id number] Date:3033-78-28GG [address] [place] [address] 02798ED: 03/22/2018 Tertiary NOT GIVENUNK [place] Insurance:SELF PAY [facility] Number: Effective Repository Date:2018-03-22 03/16/2018 DANI R Primary ADINA BEATTYDOB: [place] [id number] [address] Insurance:ANTHEMPolicy [id number] Children's Hospital, Number: [facility] [address]Sby: [id number] Repository Date:1789-44-64CC [address] () 204096BXCEDAW, [place] [address]SK: 03/16/2018 Secondary DANI R [place] Insurance:JOSE MENONB: [facility] [id number] Hospital PLANPolicy Number: Repository [id number] Date:6508-84-94JL [address] [place] [address] 895[address]FT: 03/16/2018 Tertiary NOT GIVENUNK [place] Insurance:SELF PAY [facility] Number: Effective Repository Date:2018-03-16 03/08/2018 DANI R Primary ADINA BEATTYDOB: [place] [id number] [address] Insurance:ANTHEMPolicy [id number] Children's Hospital, Number: [facility] [place] [address]Znj: [id number] Repository Date:3963-62-13HQ [address] () 630037KTNPSJU [place] [address]EL: 03/08/2018 Secondary DANI R [place] Insurance:BUCKEYE JORDENTYDOB: [facility] [id number] Hospital PLANPolicy Number: Repository [id number] Date:2145-24-38CU [address] [place] [address] 12296FP: 03/08/2018 Tertiary NOT GIVENUNK [place] Insurance:SELF PAY [facility] Number: Effective Repository Date:2018-03-08 03/04/2018 DANI R Primary ADINA BEATTYDOB: [place] [id number] [address] Insurance:ANTHEMPolicy [id number] Children's Hospital, Number: [facility] [address]Qxd: [id number] Repository Date:4717-74-09SZ [address] () [address] [place] [address] 10721AN: 03/04/2018 Secondary DANI R [place] Insurance:JOSE HILLDOB: [facility] [id number] Hospital PLANPolicy Number: Repository [id number] Date:0882-71-62LF [address], [place] [address]AU: 03/04/2018 Tertiary NOT GIVENUNK [place] Insurance:SELF PAY [facility] Number: Effective Repository Date:2018-03-04 03/01/2018 DANI R Primary ADINA BEATTYDOB: [place] [id number] [address] Insurance:ANTHEMPolicy [id number] Children's Hospital, Number: [facility] [address]Jib: [id number] Repository Date:6147-73-06KZ [address] () 152481TLIKAVE, [place] [address]PA: 03/01/2018 Secondary DANI R [place] Insurance:BUCKSHERIEE JORDENTYDOB: [facility] [id number] Hospital PLANPolicy Number: Repository [id number] Date:7598-78-62OE [address] [place] [address]HE: 03/01/2018 Tertiary NOT GIVENUNK [place] Insurance:SELF PAY [facility] Number: Effective Repository Date:2018-03-01 02/24/2018 DANI R Primary ADINA BEATTYDOB: [place] [id number] [address] Insurance:ANTHEMPolicy [id number] Children's Hospital, Number: [facility] [place] [address]Uzt: [id number] Repository Date:3943-35-67YK [address] () 088783XALELWI, [place] [address]EG: 02/24/2018 Secondary DANI R [place] Insurance:BUCKEYE BEATTYDOB: [facility] [id number] Hospital PLANPolicy Number: Repository [id number] Date:3918-83-46NR [address] [place] [address] 12764AM: 02/24/2018 Tertiary NOT GIVENUNK [place] Insurance:SELF PAY [facility] Number: Effective Repository Date:2017-12-04 02/22/2018 DANI R Primary ADINA BEATTYDOB: [place] [id number] [address] Insurance:ANTHEMPolicy [id number] Children's Hospital, Number: [facility] [place] [address]Gie: [id number] Repository Date:1347-81-92PG [address] () 721322ROBWMNB, [place] [address]EO: 02/22/2018 Secondary DANI R [place] Insurance:BUCKEYE BEATTYDOB: [facility] [id number] Hospital PLANPolicy Number: Repository [id number] Date:2109-22-50XE [address] [place] [address] 09170LP: 02/22/2018 Tertiary NOT GIVENUNK [place] Insurance:SELF PAY [facility] Number: Effective Repository Date:2018-02-22 02/15/2018 DANI R Primary ADINA BEATTYDOB: [place] [id number] [address] Insurance:ANTHEMPolicy [id number] Children's Hospital, Number: [facility] [place] [address]Bsc: [id number] Repository Date:6947-95-41GO [address] () 069263KJTHNFZ, [place] [address]YU: 02/15/2018 Secondary NOT GIVENUNK [place] Insurance:SELF PAY [facility] Number: Effective Repository Date:2018-02-15 02/08/2018 DANI Landin Primary ADINA BEATTYDOB: [place] [id number] Insurance:ANTHEMPolicy [id number] Children's Hospital, Number: [facility] [address]Gmz: [id number] Repository Date:3062-03-44UF [address] () 914116KFMKRIU, [place] [address]IL: 02/08/2018 Secondary NOT GIVENUNK [place] Insurance:SELF PAY [facility] Number: Effective Repository Date:2018-02-08 02/04/2018 DANI Landin Primary ADINA BEATTYDOB: [place] [id number] Insurance:ANTHEMPolicy [id number] Children's Hospital, Number: [facility] [address]Wuo: [id number] Repository Date:3255-54-71ZA [address] () 839838DBESCGD, [place] [address]ZG: 02/04/2018 Secondary NOT GIVENUNK [place] Insurance:SELF PAY [facility] Number: Effective Repository Date:2018-02-04 02/01/2018 DANI Landin Primary ADINA BEATTYDOB: [place] [id number] Insurance:ANTHEMPolicy [id number] Children's Hospital, Number: [facility] [address]Dei: [id number] Repository Date:3758-85-94CS [address] () 274022OPBWKRE, [place] [address]UD: 02/01/2018 Secondary NOT GIVENUNK [place] Insurance:SELF PAY [facility] Number: Effective Repository Date:2018-02-01 01/07/2018 DANI Landin Primary ADINA BEATTYDOB: [place] [id number] [address] Insurance:ANTHEMPolicy [id number] Children's Hospital, Number: [facility] [place] [address]Qnk: [id number] Repository Date:6252-15-11HW [address] () 587128UFVWLLF, [place] [address]CU: 01/07/2018 Secondary NOT GIVENUNK [place] Insurance:SELF PAY [facility] Number: Effective Repository Date:2018-01-07 01/07/2018 DANI Landin Primary Insurance:SELF NOT GIVENUNK [place] [id number] [facility] [place] Number: [facility] [place] [address]Eem: Date:2018-01-07 Repository () 12/03/2017 DANI Landin Primary ADINA BEATTYDOB: [place] [id number] [address] Insurance:ANTHEMPolicy [id number] Children's Hospital, Number: [facility] [place] [address]Rjq: [id number] Repository Date:1784-83-25DP [address] () 736515KAPFWKE, [place] [address]CE: 12/03/2017 Secondary NOT GIVENUNK [place] Insurance:SELF PAY [facility] Number: Effective Repository Date:2017-12-03 12/03/2017 DANI Landin Primary DAINA LEONARDOTYDOB: [place] [id number] [address] Insurance:ANTHEMPolicy [id number] Children's Hospital, Number: [facility] [place] [address]Hcm: [id number] Repository Date:2357-61-59XJ [address] () 453141QZACKWH, [place] [address]FN: 12/03/2017 Secondary NOT GIVENUNK [place] Insurance:SELF PAY [facility] Number: Effective Repository Date:2017-12-03 11/26/2017 DANI Landin Primary ADINA [place] [id number] [address] [facility]: Repository [place] [address]Peg: [id number] Date:2815-88-52DD BOX (HP) 970189FCOGWEU [place] [address]KX: [id number] 09/06/2017 [facility]: [facility]:ARY BLUE JORDENTYDOB: [facility] CROSS COMMERCIALPolMedPro [id number] [address] Number: [place] [id number] [address]~RXCHHQH80 Date:2017-09-0688544Bry: [phone]) 28@[facility] 9127-16-45Lksw [phone] TTel: (330) Name:BPO BOX (HP) (HP) 347155Wfrngqg, [place] 000-0000 (WP) [address]CQ: 09/06/2017 [facility]: Insurance:ANTHEM BLUE BEATTYDOB: [facility] BAJADERO [employer] [id number] Number: [place] [id number] [place] [address]~[id number] Date:2017-09-06 97[address]Vyg: 330 28@[facility] 8639-76-55Nsta [phone] TTel: (330) Name:BPO BOX (HP) (HP) 978246Xjnrvwf, 000-0000 (WP) [address]QG: 08/17/2017 [facility] Insurance:ANTHEM BLUE BEATTYDOB: [facility] BAJADERO COMMERCIALPolic [id number] [address] Number: [place] [id number] [place] [address]~[id number] Date:[id number]: [phone]) 03@[facility] HOSPITALSequent MedicalNAVARRO REGIONAL [facility] 3486-45-15Lbep [phone] TTel: (330) Name:BPO BOX (HP) (HP) 136549MkyxvwpRIVERVALE, [place] (WP) [address]KL: 08/13/2017 DANI Mistry [facility]: Insurance:[facility] [employer] [facility] PLAINVIEWB: [facility] [id number] CROSS COMMERCIALPolMaterialise [id number] Repository Number: [place], [place] [id number] [place] [address]~CIMNGON14 Date:2017-08-13Tel: [phone] 21@[facility] HOSPITALPuzzleSocialST. LUKE'S MCCALL 9230-87-13Tuqh [phone] TTel: (330) Name:BPO BOX (HP) (HP) 239773Zvgjvmi 0000 (WP) [address]CC:
== END ==
PROVIDERS: Nurse Practitioner Women's Health; Visit Provider Obstetrics & Gynecology
DX: O26.893 Other specified pregnancy related conditions, third trimester (principal); R51 Headache; Z3A.00 Weeks of gestation of pregnancy not specified
CPT/HCPCS: 36415; 80053; 82570; 83615; 84156; 84550; 85025

== ENCOUNTER 2018-07-03 18:10 | Outpatient (CLI) | payer BC, MEDICAID, SELFPAY ==
[2018-06-30 11:52] VITALS: BMI 28.2
[2018-07-03 18:30] VITALS: BMI 28.5
[2018-07-03 19:02] LABS: ROM Internal Control Test YES-OK TO RESULT pt. (Internal QC); ROM Patient Test Negative (Negative)
--- NOTE | 2018-07-03 20:38 | OB.TRI.NOTE ---
History of Present Illness Date of Service: 07/03/18 Was patient seen by the physician?: Yes Reason For Visit: RUPTURED MEMBRANES, RULE OUT LABOR History of Present Illness: co lof and irregular ctx Allergies No Known Allergies Allergy (Verified 07/03/18 18:23) - Pertinent Past Medical History Surgical History: Past Surgical History (Last Reviewed 06/30/18 @ 11:51 by Monik Alexis) H/O dilation and curettage History of appendectomy Laboratory Studies: Laboratory Tests 07/03/18 Range/Units 18:35 Vag Amniotic Fld Detect Negative (Negative) NST - FHR Rate Baby A Baseline: 130 Variability:: Moderate Accelerations:: 15 x 15 Decelerations:: None NST Reactive:: Yes FHR Category:: Category I Uterine Activity:: q4-7 Impression/Plan false labor bedside amniotic fluid grossly normal on ultrasound and negative rom plus dc home labor precautions
== END 2018-07-03 20:25 | disposition home or self-care (01) ==
LOC: WPOUT 18:14 → WP 18:14
PROVIDERS: Referring Provider Obstetrics & Gynecology; Visit Provider Obstetrics & Gynecology
DX: O47.9 False labor, unspecified (principal); Z3A.00 Weeks of gestation of pregnancy not specified
CPT/HCPCS: 59025; 59050; 76815; 84112; 99218; G0378

== ENCOUNTER 2018-07-08 16:50 | Inpatient (IN) | payer BC, MEDICAID, SELFPAY ==
[2018-07-08 12:19] VITALS: BMI 28.5
[2018-07-08 16:42] VITALS: BMI 29.2
[2018-07-08] MEDS: Lactated Ringers 1,000 ML 50 ML IV ×2 (17:05→17:59)
[2018-07-08 17:45] LABS: Hematocrit 37.5 % (37-47); Hemoglobin 12.7 g/dl (12.0-15.0); Mean Corp Hgb Conc 33.9 g/gl (32-36); Mean Corpuscular Hgb 30.3 pg (27.0-32.0); Mean Corpuscular Volume 89.5 fL (81-99); Mean Platelet Vol. 11.7 fl (6.2-12.0); Platelet Count 205 K/mm3 (150-450); RBC Distribution Width CV 12.9 % (11.6-14.6); RBC Distribution Width SD 41.8 fl (35.1-43.9); Red Blood Count 4.19 M/mm3 (4.2-5.4); Scan Indicated on CBC? Y/N NO; White Blood Count 9.6 K/mm3 (4.4-11.0)
[2018-07-08] MEDS: fentaNYL-bupivacaine (epidural) 100 ML BAG EPIDURAL (18:27)
[2018-07-08] MEDS: Amnioinfusion- 0.9% NS 1,000 ML IV.SOLN. 1000 ML INTRA-UTER (19:08)
[2018-07-08] MEDS: Oxytocin 30 units/NS 500 ml 30 UNITS/500 ML IV.SOLN 334 UNITS IV (20:27)
--- NOTE | 2018-07-08 20:45 | PCM.HP.OB ---
History Date of Admission: 05/10/18 Final BISMARK: 07/15/18 Gestational age: 39 Weeks and 0 Days History of this : This is a 22 year-old, at 39 weeks gestational age presents IAL 5 cm dilated, co regular ctx no vb lof has good fm,. she has had an uncomplicated Surgical History: Surgical History (Last Reviewed 07/08/18 @ 12:19 by Monik Alexis) H/O dilation and curettage Z98.890 History of appendectomy Z90.49 Allergies No Known Allergies Allergy (Verified 07/08/18 16:44) Home Medications: Home Medications vitamin,calcium,dxfdbhll-dezz-mibtz acid tablet 1 tab PO QDAY 12/03/17 Smoking Status: Never smoker Alcohol: None Number of Fetus(es): 1 Heart Tracin moderate variability reactive no decels cat I tracing TOCO Analysis: q 2-3 minutes History Past Pregnancies: Past Pregnancies previous PTD Labs: Mom's Labs & Results 07/08/18 07/08/18 17:05 17:05 WBC 9.6 RBC 4.19 L Hgb 12.7 Hct 37.5 MCV 89.5 MCH 30.3 MCHC 33.9 RDW 12.9 RDW Differential 41.8 Plt Count 205 MPV 11.7 Blood Type B POSITIVE Antibody Screen NEGATIVE Course Did the patient receive Yes care? Labs Blood Type: B RH: POSITIVE RPR/VDRL/Syphilis Nonreactive Rubella status Immune HbSAg Negative Date Done: 01/07/18 Chlamydia Negative Gonorrhea Negative HIV/AIDS Non-Reactive Group B Strep: Negative Current Obstetrical History Gestational Diabetes No Incompetent Cervix No Infertility No IUGR No Macrosomia No Hypertension/Pre-eclampsia No Placenta Previa/Abruption No PTL/PROM No Uterine anomaly No Oligohydramnios No Polyhydramnios No Multiple gestation No Past Medical History Asthma No Diabetes No Hypertension No Heart disease No Mitral valve prolapse No Neurologic/Seizure disorder/ No Migraines Kidney disease No Liver disease No Varicosities No Clotting disorders/Hx of DVT No Thyroid Dysfunction No Other medical diseases No Psychiatric disorders No Major trauma No Abnormal PAP smear No Sleep apnea No Mammogram in the last 2 years No Social History Marital Status: SINGLE Alleged father JERED Hx Smoking No Smoking Status Never smoker Expected Delivery Method: Vacuum Extraction Review of Systems Constitutional: Denies: Fever, Malaise Eyes: Denies: Blurred vision, Vision Change HEENT: Denies: Head Aches, Visual Changes Cardiovascular: Denies: Chest Pain, Palpitations Respiratory: Denies: Cough, Shortness of Breath, Wheezing Gastrointestinal: Reports: Abdominal Pain. Denies: Diarrhea, Nausea, Vomiting Genitourinary: Denies: Dysuria, Hematuria Musculoskeletal: Denies: Joint Pain, Muscle pain Skin: Denies: Lesions, Rash Neurological: Denies: Blurred vision, Focal weakness, Headaches Psychiatric: Denies: Anxiety, Depression Endocrine: Denies: Heat/ Cold Intolerance Hematologic/ Lymphatic: Denies: Easy Bruising, Easy Bleeding Physical Exam General: Alert, Cooperative, No apparent distress HEENT: Atraumatic, Normocephalic. Negative for: Thyromegaly, Lymphadenopathy Cardiovascular: Regular rate Lungs: Normal air movement Abdomen: Soft, Non Tender, Gravid Neurological: Deep Tendon Reflexes 2+/4 and Symmetrical, Neuro grossly intact. 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 Negative for: Vulvar lesions Estimated gestational size: Appropriate for gestational size Presentation: Cephalic Cervix Dilation (cm): 5 Assessment/Plan All Active Problems (Last Reviewed 07/08/18 @ 12:19 by Monik Alexis) (Acute) Asymptomatic bacteriuria during in first trimester (Acute) History of delivery, currently (Acute) Supervision of high-risk (Acute) This is a 22 year-old, at 39 weeks gestational age IAL Patient presents IAL, plan expectant management for , pitocin PRN, arom clear fluid. Pain management: plans epidural. GBS negative Management of any complications: none I have reviewed the [facility] and made any clinically relevant updates.
--- NOTE | 2018-07-08 20:48 | HP.PCM_ITS ---
History Date of Admission: 05/10/18 Final BISMARK: 07/15/18 Gestational age: 39 Weeks and 0 Days History of this : This is a 22 year-old, at 39 weeks gestational age presents IAL 5 cm dilated, co regular ctx no vb lof has good fm,. she has had an uncomplicated Surgical History: Surgical History (Last Reviewed 07/08/18 @ 12:19 by Monik Alexis) H/O dilation and curettage Z98.890 History of appendectomy Z90.49 Allergies No Known Allergies Allergy (Verified 07/08/18 16:44) Home Medications: Home Medications vitamin,calcium,tpyzgmbk-xyvq-shgkz acid tablet 1 tab PO QDAY 12/03/17 Smoking Status: Never smoker Alcohol: None Number of Fetus(es): 1 Heart Tracin moderate variability reactive no decels cat I tracing TOCO Analysis: q 2-3 minutes History Past Pregnancies: Past Pregnancies previous PTD Labs: Mom's Labs & Results 07/08/18 07/08/18 17:05 17:05 WBC 9.6 RBC 4.19 L Hgb 12.7 Hct 37.5 MCV 89.5 MCH 30.3 MCHC 33.9 RDW 12.9 RDW Differential 41.8 Plt Count 205 MPV 11.7 Blood Type B POSITIVE Antibody Screen NEGATIVE Course Did the patient receive Yes care? Labs Blood Type: B RH: POSITIVE RPR/VDRL/Syphilis Nonreactive Rubella status Immune HbSAg Negative Date Done: 01/07/18 Chlamydia Negative Gonorrhea Negative HIV/AIDS Non-Reactive Group B Strep: Negative Current Obstetrical History Gestational Diabetes No Incompetent Cervix No Infertility No IUGR No Macrosomia No Hypertension/Pre-eclampsia No Placenta Previa/Abruption No PTL/PROM No Uterine anomaly No Oligohydramnios No Polyhydramnios No Multiple gestation No Past Medical History Asthma No Diabetes No Hypertension No Heart disease No Mitral valve prolapse No Neurologic/Seizure disorder/ No Migraines Kidney disease No Liver disease No Varicosities No Clotting disorders/Hx of DVT No Thyroid Dysfunction No Other medical diseases No Psychiatric disorders No Major trauma No Abnormal PAP smear No Sleep apnea No Mammogram in the last 2 years No Social History Marital Status: SINGLE Alleged father JERED Hx Smoking No Smoking Status Never smoker Expected Delivery Method: Vacuum Extraction Review of Systems Constitutional: Denies: Fever, Malaise Eyes: Denies: Blurred vision, Vision Change HEENT: Denies: Head Aches, Visual Changes Cardiovascular: Denies: Chest Pain, Palpitations Respiratory: Denies: Cough, Shortness of Breath, Wheezing Gastrointestinal: Reports: Abdominal Pain. Denies: Diarrhea, Nausea, Vomiting Genitourinary: Denies: Dysuria, Hematuria Musculoskeletal: Denies: Joint Pain, Muscle pain Skin: Denies: Lesions, Rash Neurological: Denies: Blurred vision, Focal weakness, Headaches Psychiatric: Denies: Anxiety, Depression Endocrine: Denies: Heat/ Cold Intolerance Hematologic/ Lymphatic: Denies: Easy Bruising, Easy Bleeding Physical Exam General: Alert, Cooperative, No apparent distress HEENT: Atraumatic, Normocephalic. Negative for: Thyromegaly, Lymphadenopathy Cardiovascular: Regular rate Lungs: Normal air movement Abdomen: Soft, Non Tender, Gravid Neurological: Deep Tendon Reflexes 2+/4 and Symmetrical, Neuro grossly intact. 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 Negative for: Vulvar lesions Estimated gestational size: Appropriate for gestational size Presentation: Cephalic Cervix Dilation (cm): 5 Assessment/Plan All Active Problems (Last Reviewed 07/08/18 @ 12:19 by Monik Alexis) (Acute) Asymptomatic bacteriuria during in first trimester (Acute) History of delivery, currently (Acute) Supervision of high-risk (Acute) This is a 22 year-old, at 39 weeks gestational age IAL Patient presents IAL, plan expectant management for , pitocin PRN, arom clear fluid. Pain management: plans epidural. GBS negative Management of any complications: none I have reviewed the [facility] and made any clinically relevant updates.
--- NOTE | 2018-07-08 20:48 | PCM.OB.VAG ---
- Problem List (1) Active labor at term Status: Acute (2) Asymptomatic bacteriuria during in first trimester Status: Acute Comment: keflex, neg repeat culture (3) History of delivery, currently Status: Acute Comment: s/p progesterone injections (4) Status: Acute Qualifiers: Weeks of gestation: 39 weeks Qualified Code(s): Z3A.39 - 39 weeks gestation of Comment: : 3 Elective abortions: Hx Para: 1 Spontaneous abortions: Hx # Term Pregnancies: Ectopic pregnancies: Hx # Pregnancies: Multiple births: : # of living children: Past Pregnancies 2012 Melva live - 4lbs 14oz Female [facility]ner[facility] (5) Supervision of high-risk Status: Acute Qualifiers: Trimester: third trimester Qualified Code(s): O09.93 - Supervision of high risk , unspecified, third trimester Comment: PRR BISMARK 07/15/18 gender surprise for daughter AMI Frye boyfriend Vignesh Vaginal Delivery Maternal Presentation: Active Labor ial 39 weeks Amniotic Membrane Rupture Type: Artificial Amniotic Fluid Description: Clear Final BISMARK: 07/15/18 Gestational age: 39 Weeks and 0 Days Date of Procedure: 07/08/18 Pre-Operative Diagnosis: ial Post-Operative Diagnosis: same Surgery/ Procedure Performed: Vacuum Assisted Vaginal Delivery Type of Anesthesia: Epidural Description of Procedure: Patient began pushing and developed a belonged deceleration for 4 minutes down into the 70s after having recurrent periodic variables and therefore the decision was made to perform a vacuum-assisted delivery. Patient had been consented for this procedure prior to application of vacuum. Kiwi vacuum was applied and the +3 station and was difficult to maintain suction to pop offs were encountered and then a right small mediolateral episiotomy was cut and the vacuum was moved to the side and the infant's head delivered on the next contraction with 1 Pull and delivered the head in the SEYMOUR presentation. The head was delivered atraumatically and a tight nuchal cord x2 was identified and slowly reduced over the infant's head. Gentle downward traction was applied to the head by placing fingers underneath the chin and the occiput however the infant's shoulders were noted to be abnormally rotated and therefore internal manipulation with a wood screw maneuver was attempted to reduce the shoulder due to malpresentation of the shoulders. With continued gentle downward traction the left anterior shoulder was delivered without complication followed by the posterior shoulder and the rest the delivered was placed maternal abdomen and then resuscitated by the breaking machine operator. Cord was clamped and cut and gentle traction was applied to the cord and the placenta delivered spontaneously immediately following it was noted to be intact with three-vessel cord. The perineum and vagina were inspected and the medial lateral episiotomy was noted to have no extension it was just a second-degree perineal laceration repaired in the usual fashion with 3-0 Vicryl repeat. EBL was 300 cc. Patient and infant tolerated delivery well. Presentation: SE[place]OUR Placental Delivery Description: Spontaneous Placenta Disposition: [facility] Cord Vessel Description: 3 Vessels Cord Entanglement: Around neck x 2, tight Estimated Blood Loss: 300 Infant A gender: Male Episiotomy Description: Right Mediolateral Laceration: Perineal Extension/lac, 2nd degree Medications given after delivery: IV Pitocin Complications: None
[2018-07-08] MEDS: Oxytocin 30 units/NS 500 ml 30 UNITS/500 ML IV.SOLN 167 UNITS IV (20:57)
--- NOTE | 2018-07-08 20:57 | PCM.DCVAG ---
Discharge Diet: No Restrictions Discharge Activity: Return to Normal Activity, May not drive while taking narcotic pain medications., May Shower May resume sexual activity in: 4-6 weeks Call your doctor if your incision/area has: Continuous Slow Oozing, Sudden Increased Bleeding, Increased Pain/ Swelling, Increased Redness, Foul Smelling Discharge Additional Instructions: If you experience any of the following, contact your healthcare provider. Bleeding that soaks a pad every hour for 2 hours Fever 100.4 or higher Unrelieved incision or abdominal pain Swelling, redness, discharge or bleeding from your incision or episiotomy site Your incision begins to separate Problems urinating (including inability to urinate or burning while urinating). Visual changes Severe headache Flu-like symptoms Pain or redness in one of both of your breasts Pain, warmth, tenderness or swelling in your legs, especially the calf area Frequent nausea and vomiting Symptoms of depression or anxiety If you experience any of the following, call 911 or go to the nearest Emergency Room. Chest pain Problems breathing Seizure activity Partial or complete paralysis of a body part, slurred speech, weakness or drooping of the face, or a sudden inability to walk or hold your balance Allergies/Adverse Reactions: Allergies No Known Allergies Allergy (Verified 07/08/18 16:44) Medications to take at Discharge vitamin,calcium,jfnjjkso-xnaa-ywcan acid tablet 1 tab PO QDAY 12/03/17 Ibuprofen [Motrin] 600 mg PO Q6H PRN PRN #30 tablet 07/08/18 The following prescriptions were given: Ibuprofen [Motrin] 600 mg PO Q6H PRN PRN #30 tablet PRN Reason: Pain Please Follow Up With: Mily Cano MD - [phone] When: Call to make an appointment with your doctor in 6 weeks. If you had elevated Blood pressure or 4th degree laceration you will need to be seen in 2 weeks. Primary Care Physician: Care Physician,No Primary [Primary Care Provider] - Test Results: Test results from this visit will be discussed in further detail at your follow-up appointment, if applicable.
--- NOTE | 2018-07-08 20:58 | DCINST_ITS ---
Discharge Diet: No Restrictions Discharge Activity: Return to Normal Activity, May not drive while taking narcotic pain medications., May Shower May resume sexual activity in: 4-6 weeks Call your doctor if your incision/area has: Continuous Slow Oozing, Sudden Increased Bleeding, Increased Pain/ Swelling, Increased Redness, Foul Smelling Discharge Additional Instructions: If you experience any of the following, contact your healthcare provider. * Bleeding that soaks a pad every hour for 2 hours * Fever 100.4 or higher * Unrelieved incision or abdominal pain * Swelling, redness, discharge or bleeding from your incision or episiotomy site * Your incision begins to separate * Problems urinating (including inability to urinate or burning while urinating). * Visual changes * Severe headache * Flu-like symptoms * Pain or redness in one of both of your breasts * Pain, warmth, tenderness or swelling in your legs, especially the calf area * Frequent nausea and vomiting * Symptoms of depression or anxiety If you experience any of the following, call 911 or go to the nearest Emergency Room. * Chest pain * Problems breathing * Seizure activity * Partial or complete paralysis of a body part, slurred speech, weakness or drooping of the face, or a sudden inability to walk or hold your balance Allergies/Adverse Reactions: Allergies No Known Allergies Allergy (Verified 07/08/18 16:44) Medications to take at Discharge vitamin,calcium,nmslwyrw-jney-dxrma acid tablet 1 tab PO QDAY 12/03/17 Ibuprofen [Motrin] 600 mg PO Q6H PRN PRN #30 tablet 07/08/18 The following prescriptions were given: Ibuprofen [Motrin] 600 mg PO Q6H PRN PRN #30 tablet PRN Reason: Pain Please Follow Up With: Mily Cano MD - [phone] When: Call to make an appointment with your doctor in 6 weeks. If you had elevated Blood pressure or 4th degree laceration you will need to be seen in 2 weeks. Primary Care Physician: Care Physician,No Primary [Primary Care Provider] - Test Results: Test results from this visit will be discussed in further detail at your follow- up appointment, if applicable.
[2018-07-08 23:00] VITALS: BP 124/78; PULSE 88; RESP 16; TEMP 36.5; O2SAT 99
[2018-07-09 02:30] VITALS: BP 110/65; PULSE 94; RESP 18; TEMP 36.9
[2018-07-09 04:40] VITALS: BP 115/72; PULSE 91; RESP 20; TEMP 36.9
--- NOTE | 2018-07-09 07:31 | PCM.PN.OB ---
Patient Problems: Active and Suspected Problems (Last Reviewed 07/08/18 @ 12:19 by Monik Alexis) Active labor at term (Acute) Subjective: NO CP, SOB. Doing well. Pain controlled - Physical Exam General: Alert, Oriented x3 Abdomen: Soft, Non Tender, - - FF below U Vital Signs Temp Pulse Resp BP Pulse Ox 98.4 F 91 20 H 115/72 99 07/09/18 04:40 07/09/18 04:40 07/09/18 04:40 07/09/18 04:40 07/08/18 23:00 Oxygen Delivery Method Room Air Weight: 186 lb 15.232 oz Body Mass Index (BMI) 29.2 Intake and Output for Last 24 Hours 07/07/18 07/08/18 07/09/18 23:59 23:59 23:59 Intake Total 1034 / 1034 Output Total 50 / 50 Balance 984 / 984 Laboratory Tests Past 24 Hrs 07/08/18 07/08/18 17:05 17:05 WBC 9.6 RBC 4.19 L Hgb 12.7 Hct 37.5 MCV 89.5 MCH 30.3 MCHC 33.9 RDW 12.9 RDW Differential 41.8 Plt Count 205 MPV 11.7 Blood Type B POSITIVE Antibody Screen NEGATIVE Medical Necessity - Tobacco Use Smoking Status: Never smoker Assessment/Plan All Active Problems (Last Reviewed 07/08/18 @ 12:19 by Monik Alexis) Active labor at term (Acute) (Acute) Asymptomatic bacteriuria during in first trimester (Acute) History of delivery, currently (Acute) Supervision of high-risk (Acute) VAVD PPD #1: Routine care. Bottle feeding. Pain controlled
[2018-07-09 08:00] VITALS: BP 102/59; PULSE 71; RESP 16; TEMP 36.7
[2018-07-09] MEDS: Prenatal Vits Tablet 1 TABLET PO (11:07)
[2018-07-09] MEDS: Naproxen 250 MG Tablet PO (11:12)
[2018-07-09 12:00] VITALS: BP 108/63; PULSE 80; RESP 16; TEMP 36.7
[2018-07-09 16:00] VITALS: BP 128/78; PULSE 71; RESP 16; TEMP 36.4
[2018-07-09 19:31] VITALS: BP 114/62; PULSE 61; RESP 18; TEMP 36.9
[2018-07-10 01:10] VITALS: BP 111/61; PULSE 66; RESP 18; TEMP 36.7
[2018-07-10 08:25] VITALS: BP 115/69; PULSE 78; RESP 20; TEMP 36.6
--- NOTE | 2018-07-10 09:07 | PCM.PN.OB ---
Patient Problems: Active and Suspected Problems (Last Reviewed 07/08/18 @ 12:19 by Monik Alexis) Active labor at term (Acute) Subjective: doing well no complaints pain contolled no CP SOB N V - Physical Exam General: Alert, Oriented x3 Vital Signs Temp Pulse Resp BP Pulse Ox 97.8 F 78 20 H 115/69 99 07/10/18 08:25 07/10/18 08:25 07/10/18 08:25 07/10/18 08:25 07/08/18 23:00 Oxygen Delivery Method Room Air Weight: 186 lb 15.232 oz Body Mass Index (BMI) 29.2 Intake and Output for Last 24 Hours 07/08/18 07/09/18 07/10/18 23:59 23:59 23:59 Intake Total 1034 / 1034 Output Total 50 / 50 Balance 984 / 984 Medical Necessity - Tobacco Use Smoking Status: Never smoker Assessment/Plan All Active Problems (Last Reviewed 07/08/18 @ 12:19 by Monik Alexis) Active labor at term (Acute) (Acute) Asymptomatic bacteriuria during in first trimester (Acute) History of delivery, currently (Acute) Supervision of high-risk (Acute) s/p PPD # 2 1. routine post delivery care 2. bottle feeding 3. rh positive 4. rubella immune
[2018-07-10] MEDS: Prenatal Vits Tablet 1 TABLET PO (10:54)
== END 2018-07-10 12:00 | disposition home or self-care (01) | DRG 560 ==
LOC: WPOUT 16:52 → WP 17:03
PROVIDERS: Admitting Provider Obstetrics & Gynecology; Referring Provider Obstetrics & Gynecology; Visit Provider Obstetrics & Gynecology
DX: O76 Abnormality in fetal heart rate and rhythm complicating labor and delivery (principal); O69.1XX0 Labor and delivery complicated by cord around neck, with compression, not applicable or unspecified; Z3A.39 39 weeks gestation of pregnancy; Z37.0 Single live birth
CPT/HCPCS: 59025; 59050; 85027; 86850; 86900; 99218; J7030; J7120; G0378

== ENCOUNTER → 2019-08-24 09:55 | Outpatient (CLI) | payer BC, MEDICAID, SELFPAY ==
[2019-08-24 09:32] VITALS: BMI 29.2
[2019-08-24 10:32] LABS: Eosinophils% 2.7 % (0-5); Hematocrit 44.9 % (37-47); Hemoglobin 14.7 g/dL (12.0-15.0); Lymphocyte % 36.5 % (19-41); Mean Corp Hgb Conc 32.7 g/dL (32-36); Mean Corpuscular Hgb 28.7 pg (27.0-32.0); Mean Corpuscular Volume 87.7 fL (81-99); Mean Platelet Vol. 10.7 fl (6.2-12.0); Monocyte% 7.8 % (0-10); Neutrophil % 52.4 % (47-70); Platelet Count 301 K/mm3 (150-450); Red Blood Count 5.12 M/mm3 (4.2-5.4); White Blood Count 5.1 K/mm3 (4.4-11.0)
[2019-08-24 10:33] LABS: Absolute Lymphocyte Count 1.87 X10^3/uL (0.83-4.51); Absolute Neutrophil Count 2.7 X10^3/uL (2.0-7.7); Basophil# 0.02 X10^3/uL; Basophil% 0.4 % (0-1); Eosinophil# 0.14 X10^3/uL; Lymphocyte # 1.87 X10^3/ul (4.0); NRBC Flagged by Analyzer 0 % (0-5); Neutrophil # 2.69 X10^3/uL (2.7-7.7)
[2019-08-24 11:12] LABS: Estradiol 130.2 pg/mL; Follicle Stimulating Hormone 5.9 mIU/mL; Prolactin 11.4 ng/mL; T4 Free Direct 0.88 ng/dL (0.76-1.46); Thyroid Stim Hormone (TSH) 4.42 uIU/mL (0.358-3.74)
[2019-08-26 09:36] LABS: DHEA Sulfate 194.1 ug/dL (110.0-431.7)
[2019-08-26 11:22] LABS: Testosterone Free 1.3 pg/mL (0.0-4.2)
[2019-08-28 12:42] LABS: 17-Hydroxyprogesterone 44 ng/dL (.)
== END ==
PROVIDERS: Referring Provider Obstetrics & Gynecology; Visit Provider Obstetrics & Gynecology
DX: N91.5 Oligomenorrhea, unspecified (principal); N91.1 Secondary amenorrhea
CPT/HCPCS: 36415; 82627; 82670; 83001; 83498; 84146; 84402; 84439; 84443; 85025; 82626

== ENCOUNTER → 2020-09-03 | Outpatient (CLI) | payer BC, SELFPAY ==
[2020-09-03 15:20] VITALS: BMI 28.5
[2020-09-06 15:44] LABS: HPV Reflexed? NOT INDICATED
== END | disposition home or self-care (01) ==
LOC: LABSPEC 17:04
PROVIDERS: Referring Provider Obstetrics & Gynecology; Visit Provider Obstetrics & Gynecology
DX: Z12.4 Encounter for screening for malignant neoplasm of cervix (principal)
CPT/HCPCS: 88175; G0145

== ENCOUNTER → 2021-02-01 | Outpatient (CLI) | payer BC, MEDICAID, SELFPAY ==
[2021-02-01 13:32] VITALS: BMI 28.5
== END | disposition home or self-care (01) ==
LOC: LABSPEC 14:58
PROVIDERS: Referring Provider Obstetrics & Gynecology; Visit Provider Obstetrics & Gynecology
DX: N89.8 Other specified noninflammatory disorders of vagina (principal)
CPT/HCPCS: 87070; 87205

== ENCOUNTER → 2022-09-10 | Outpatient (CLI) | payer BC, MEDICAID, SELFPAY ==
[2022-09-12 07:08] LABS: Chlamydia By Nucleic Acid AMP Negative (Negative)
[2022-09-12 08:29] LABS: Gonococcus By Nucleic Acid AMP Negative (Negative)
== END | disposition home or self-care (01) ==
LOC: LABSPEC 10:51
PROVIDERS: Referring Provider Nurse Practitioner Women's Health; Visit Provider Nurse Practitioner Women's Health
DX: N89.8 Other specified noninflammatory disorders of vagina (principal)
CPT/HCPCS: 87070; 87205; 87491; 87591

== ENCOUNTER → 2023-03-12 | Outpatient (CLI) | payer BC, MEDICAID, SELFPAY ==
[2023-03-12 16:32] LABS: hCG Titer Quant., Serum 16119 mIU/mL (1-3)
== END | disposition home or self-care (01) ==
PROVIDERS: Referring Provider Obstetrics & Gynecology; Visit Provider Obstetrics & Gynecology
DX: O20.0 Threatened abortion (principal); Z3A.00 Weeks of gestation of pregnancy not specified
CPT/HCPCS: 36415; 84702

== ENCOUNTER → 2023-03-14 | Outpatient (CLI) | payer BC, SELFPAY ==
[2023-03-14 14:40] LABS: hCG Titer Quant., Serum 20878 mIU/mL (1-3)
== END | disposition home or self-care (01) ==
PROVIDERS: Visit Provider Obstetrics & Gynecology
DX: O20.0 Threatened abortion (principal); Z3A.00 Weeks of gestation of pregnancy not specified
CPT/HCPCS: 36415; 84702

== ENCOUNTER → 2023-03-17 | Outpatient (CLI) | payer BC, SELFPAY ==
--- NOTE | 2023-03-17 13:50 | US_ITS ---
STUDY: FIRST TRIMESTER OBSTETRICAL ULTRASOUND REASON FOR EXAM: Female, 27 years old viability -- STAT LMP: January 15, 2023. TECHNIQUE: Transvaginal TECHNICAL QUALITY: Adequate. PRIOR ULTRASOUND: None. FINDINGS: There is visualization of a single gestational sac in a normal intrauterine position. The mean sac diameter (MSD) measures 2.02 cm, indicating an estimated gestational age (EGA) of 6 weeks, 6 days. The gestational sac shape is within normal limits. There is a visualized yolk sac. The yolk sac measures 4.2 mm. The placenta is non-visualized. There is visualization of a live embryo. The crown-rump length (CRL) measures 5.6 mm, indicating an estimated gestational age (EGA) of 6 weeks, 4 days. There is demonstrated cardiac activity with a heart rate of 87 bpm. The estimated gestation age (EGA) by LMP is 8 weeks, 5 days. The estimated date of delivery (BISMARK) by LMP is October 22, 2023. The estimated gestation age (EGA) by US is 6 weeks, 5 days. The estimated date of delivery (BISMARK) by US is November 05, 2023. The uterus measures 10.1 cm x 7 cm x 7 cm.. There is no demonstrated uterine fibroid. The cervix is closed. The right ovary measures 4.7 cm x 3.4 cm x 3.7 cm. There is a 2.5 cm x 2.3 cm x 2.1 cm right corpus luteum cyst. There is no visualized right adnexal mass or complex lesion. The left ovary measures 4 cm x 2.8 cm x 2.2 cm. There is no left ovarian cyst. There is no visualized left adnexal mass or complex lesion. There is no fluid in the cul de sac. US/Transvaginal w/Preg US IMPRESSION: Live intrauterine gestation with a mean gestational age of 6 weeks and 5 days. 2.5 cm x 2.37 x 2.1 cm right corpus luteum cyst. Electronically Signed: Riccardo Sultana MD at 14:58 EDT ,
== END | disposition home or self-care (01) ==
LOC: OPUS 13:50
PROVIDERS: Referring Provider Nurse Practitioner Women's Health; Visit Provider Nurse Practitioner Women's Health
DX: O20.0 Threatened abortion (principal); Z3A.00 Weeks of gestation of pregnancy not specified
CPT/HCPCS: 76817